=== PATIENT | female | born 1950 | race Caucasian/White ===

== ENCOUNTER 2023-07-11 09:32 | Outpatient (OUT) | payer MEDICARE, OTHER, SELFPAY ==
[2023-07-11 10:13] LABS: Basophils Absolute Auto 0.1 10^3/uL (0.0-0.1); Basophils Percent Auto 1.4 % (0.2-2.0); Eosinophils Absolute Auto 0.2 10^3/uL (0.0-0.7); Eosinophils Percent Auto 4.7 % (0.9-7.0); Hematocrit 41.5 % (36.0-48.0); Hemoglobin 13.7 g/dL (12.0-16.0); Immature Granulocytes Abs Auto 0.01 10^3/uL (0.00-0.03); Immature Granulocytes Pct Auto 0.2 % (0.0-0.5); Lymphocytes Absolute Auto 1.5 10^3/uL (1.2-3.8); Lymphocytes Percent Auto 34.7 % (20.5-60.0); Mean Corpuscular Hemoglobin 31.4 pg (26.7-34.0); Mean Corpuscular Volume 95.2 fL (81.0-99.0); Mean Platelet Volume 11.9 fL (9.5-13.5); Monocytes Absolute Auto 0.4 10^3/uL (0.3-0.8); Monocytes Percent Auto 8.8 % (1.7-12.0); Neutrophils Absolute Auto 2.2 10^3/uL (1.4-6.5); Neutrophils Percent Auto 50.2 % (43.0-75.0); Platelet Count 215 10^3/uL (150-450); Red Blood Count 4.36 10^6/uL (4.20-5.40); Red Cell Distribution Width 13.2 % (11.0-15.0); White Blood Count 4.3 10^3/uL (4.0-11.0)
[2023-07-11 11:18] LABS: Free T4 1.12 ng/dL (0.76-1.46)
[2023-07-11 12:33] LABS: Anion Gap 10.7; BUN Creatinine Ratio 19.3; Carbon Dioxide 27.3 mmol/L (21.0-32.0); Chloride 102 mmol/L (98-107); Estimated GFR (African America 59 (>=60); Estimated GFR (Non-African Ame 49 (>=60); Glucose 169 mg/dL (74-106); Sodium 136 mmol/L (136-145)
[2023-07-11 12:34] LABS: Alanine Aminotransferase 26 U/L (14-59); Albumin Globulin Ratio 1.2; Albumin Level 4.1 g/dL (3.4-5.0); Alkaline Phosphatase 68 U/L (46-116); Aspartate Amino Transferase 19 U/L (15-37); Bilirubin Total 0.8 mg/dL (0.2-1.0); Calcium 8.7 mg/dL (8.5-10.1); Chol HDL Ratio 3.9; Cholesterol 239 mg/dL (<=200); Globulin 3.3 g/dL; HDL Cholesterol 62 mg/dL (40-60); Total Protein 7.4 g/dL (6.4-8.2); Triglycerides 88 mg/dL (<=150); VLDL CHOLESTEROL 17.6 mg/dL
[2023-07-11 12:35] LABS: LDL Cholesterol Calculated 159.4 mg/dL; Thyroid Stimulating Hormone 1.399 uIU/mL (0.358-3.740)
[2023-07-11 12:42] LABS: Estimated Average Glucose 169 mg/dL; Glycohemoglobin A1C 7.5 % (4.5-6.2)
== END 2023-07-11 09:33 | disposition home or self-care (01) ==
LOC: LAB 09:41
PROVIDERS: PCP Family Medicine; Visit Provider Family Medicine
DX: I10 Essential (primary) hypertension (principal); E03.9 Hypothyroidism, unspecified; E11.65 Type 2 diabetes mellitus with hyperglycemia
CPT/HCPCS: 36415; 80053; 80061; 83036; 84439; 84443; 85025

== ENCOUNTER 2024-01-10 09:32 | Outpatient (OUT) | payer MEDICARE, OTHER, SELFPAY ==
[2024-01-10 10:13] LABS: Estimated Average Glucose 163 mg/dL; Glycohemoglobin A1C 7.3 % (4.5-6.2)
[2024-01-10 10:33] LABS: Basophils Absolute Auto 0.1 10^3/uL (0.0-0.1); Basophils Percent Auto 1.4 % (0.2-2.0); Eosinophils Absolute Auto 0.1 10^3/uL (0.0-0.7); Eosinophils Percent Auto 2.5 % (0.9-7.0); Hematocrit 42.7 % (36.0-48.0); Hemoglobin 13.8 g/dL (12.0-16.0); Immature Granulocytes Abs Auto 0.01 10^3/uL (0.00-0.03); Immature Granulocytes Pct Auto 0.2 % (0.0-0.5); Lymphocytes Absolute Auto 1.3 10^3/uL (1.2-3.8); Lymphocytes Percent Auto 30.6 % (20.5-60.0); Mean Corpuscular HGB Conc 32.3 g/dL (29.9-35.2); Mean Corpuscular Hemoglobin 30.8 pg (26.7-34.0); Mean Corpuscular Volume 95.3 fL (81.0-99.0); Monocytes Absolute Auto 0.4 10^3/uL (0.3-0.8); Monocytes Percent Auto 8.9 % (1.7-12.0); Neutrophils Absolute Auto 2.5 10^3/uL (1.4-6.5); Neutrophils Percent Auto 56.4 % (43.0-75.0); Platelet Count 208 10^3/uL (150-450); Red Blood Count 4.48 10^6/uL (4.20-5.40); White Blood Count 4.4 10^3/uL (4.0-11.0)
[2024-01-10 10:37] LABS: Free T4 1.15 ng/dL (0.76-1.46)
[2024-01-10 11:04] LABS: Anion Gap 15.2; BUN Creatinine Ratio 17.5; Calcium 9.1 mg/dL (8.5-10.1); Carbon Dioxide 27.9 mmol/L (21.0-32.0); Chloride 101 mmol/L (98-107); Estimated GFR (African America 56 (>=60); Estimated GFR (Non-African Ame 47 (>=60); Glucose 173 mg/dL (74-106); Potassium 4.1 mmol/L (3.5-5.1); Sodium 140 mmol/L (136-145); Thyroid Stimulating Hormone 1.231 uIU/mL (0.358-3.740)
== END 2024-01-10 09:33 | disposition home or self-care (01) ==
LOC: LAB 09:36
PROVIDERS: PCP Family Medicine; Visit Provider Family Medicine
DX: E03.9 Hypothyroidism, unspecified (principal); I10 Essential (primary) hypertension; E11.65 Type 2 diabetes mellitus with hyperglycemia
CPT/HCPCS: 36415; 80048; 83036; 84439; 84443; 85025

== ENCOUNTER 2024-05-01 00:47 | Emergency (ER) | payer MEDICARE, OTHER, SELFPAY ==
[2024-05-01] VITALS (38 sets, daily range): BP systolic 141–240; BP diastolic 58–118; PULSE 78–104; TEMP 36.7; O2SAT 97–100
--- NOTE | 2024-05-01 01:04 | ECG_ITS ---
[facility] Test Date: 2024-05-01 Pat Name: JORDANA JIMÉNEZ Department: Room: - Gender: Female Psychiatric Orderly: : 1950 Requested By: [id number] Order Number: [id number] Reading MD: ABRAHAM ESTES Measurements Intervals [place] Rate: 86 P: 68 WA: 228 QRS: 20 QRSD: 80 T: 57 QT: 360 QTc: 403 Interpretive Statements 1100 Sinus rhythm 1474 with frequent supraventricular premature complexes 2231 First degree AV block 9150 abnormal ECG Compared to ECG 04/07/2022 10:23:59 No significant changes Electronically Signed On 05-01-2024 6:42:16 EDT by ABRAHAM ESTES
--- NOTE | 2024-05-01 01:08 | XR_ITS ---
The [address] [address] Patient Name: JORDANA JIMÉNEZ MRN: [facility]:[id number] date: 1950 Sex: F Assigned Patient Location: ER Current Patient Location: ER Accession/Order Number: [id number] Exam Date: 05/01/2024 01:20 Report Date: 05/01/2024 02:12 At the request of: VALERIE CAMACHO Procedure: XR chest 1V SINGLE VIEW CHEST: 05/01/2024 1:20 AM EDT CLINICAL HISTORY:tachycardia COMPARISONS: Two-view chest 03/23/2022 TECHNIQUE: Single frontal view of the chest, utilizing portable technique. Portable radiography should be considered a technically compromised study. Strongly consider dedicated PA and lateral chest radiographs, as clinically indicated. FINDINGS: LINES AND TUBES: Cardiac monitoring leads and wires overlie the patient. CARDIAC SILHOUETTE: Within normal limits. MEDIASTINAL AND HILAR CONTOUR: Within normal limits. PULMONARY PARENCHYMA AND PLEURA: No consolidation, edema, effusion, or pneumothorax. OSSEOUS STRUCTURES:Nothing significant. OTHER COMMENTS:None. XR/XR chest 1V IMPRESSION: Stable chest, with no acute radiographic findings. This report was generated with voice recognition software. Effort has been made to ensure accuracy of this report, however, occasional wording errors may persist. Please contact our office with any questions. Electronically authenticated by: RUPERTO GARCIA Date: 05/01/2024 02:12
--- NOTE | 2024-05-01 01:10 | ED.GENADUL1 ---
HPI HPI - General Adult General Chief complaint: Arrhythmia/Palpitations Stated complaint: chest pain Time Seen by Provider: 05/01/24 01:02 Source: patient Mode of arrival: walk-in Limitations: no limitations History of Present Illness HPI narrative: past history of diet controlled diabetes, HTN and hypothyroid. States a couple of days ago experienced heart racing in her chest for few minutes. Tonight heart racing for over an hour and her BP is elevated. No chest pain. sl nausea. Nothing specific but states just did not feel right and decided to come in. no light headedness or shortness of breath Related Data Home Medications ?Medication ?Instructions ?Recorded ?Confirmed levothyroxine 75 mcg tablet 75 mcg PO .once daily 05/01/24 05/01/24 losartan 50 mg tablet 50 mg PO .once daily 05/01/24 05/01/24 Allergies Allergy/AdvReac Type Severity Reaction Status Date / Time Penicillins Allergy Intermediate Hives Verified 05/01/24 00:59 Sulfa (Sulfonamide Allergy Intermediate hives Verified 05/01/24 00:59 Antibiotics) Opioid HPI Opioid Management Most Recent Opioid Data: No Data to Display Review of Systems ROS Status of ROS 10 or more systems reviewed and unremarkable except as noted in history and below Exam Constitutional Vital Signs, click to edit/add: Last Vital Signs Temp 98.1 F 05/01/24 00:59 Pulse 78 05/01/24 04:41 Resp 18 05/01/24 04:41 BP 166/66 H 05/01/24 04:41 Pulse Ox 97 05/01/24 04:41 O2 Del Method Room Air 05/01/24 00:59 Common normals: no apparent distress, average body habitus, oriented x3, no limitations, healthy appearing, alert and well nourished Eye Common normals: PERRL and EOMs intact bilaterally Respiratory Common normals: normal respiratory effort, no retractions, no use of accessory muscles and clear to auscultation bilaterally Cardio Common normals: S1 normal heart sound and S2 normal heart sound Rate: tachycardic GI Common normals: Normal to inspection, nondistended, normoactive bowel sounds present, soft to palpation and non-tender Extremity Common normals: normal to inspection and full ROM Neuro Common normals: oriented x3, CN's II-XII intact bilaterally, moves all extremities and no focal motor deficits Psych Appearance: grossly normal Course Vital Signs Vital signs: Vital Signs Temperature 98.1 F 05/01/24 00:59 Pulse Rate 89 05/01/24 00:59 Respiratory Rate 16 05/01/24 00:59 Blood Pressure 202/118 H 05/01/24 00:59 Pulse Oximetry 97 05/01/24 00:59 Oxygen Delivery Method Room Air 05/01/24 00:59 Temperature 98.1 F 05/01/24 00:59 Pulse Rate 78 05/01/24 04:41 Respiratory Rate 18 05/01/24 04:41 Blood Pressure 166/66 H 05/01/24 04:41 Pulse Oximetry 97 05/01/24 04:41 Oxygen Delivery Method Room Air 05/01/24 00:59 Medical Decision Making MDM Narrative Medical decision making narrative: patient presents with complaint of her heart racing at home and HTN. No chest pain or dyspnea. Serial troponin neg and D-dimer neg. BP treated in the department and patient discharged home to follow up with her doctor for recheck Lab Data Labs: Lab Results 05/01/24 05/01/24 Range/Units 01:10 03:10 WBC 6.5 (4.0-11.0) 10^3/uL RBC 4.59 (4.20-5.40) 10^6/uL Hgb 14.3 (12.0-16.0) g/dL Hct 43.8 (36.0-48.0) % MCV 95.4 (81.0-99.0) fL MCH 31.2 (26.7-34.0) pg MCHC 32.6 (29.9-35.2) g/dL RDW 13.5 (11.0-15.0) % Plt Count 205 (150-450) 10^3/uL MPV 11.9 (9.5-13.5) fL Neut % (Auto) 40.6 L (43.0-75.0) % Lymph % (Auto) 45.9 (20.5-60.0) % [place] % (Auto) 9.2 (1.7-12.0) % Eos % (Auto) 3.4 (0.9-7.0) % Baso % (Auto) 0.9 (0.2-2.0) % Neut # (Auto) 2.6 (1.4-6.5) 10^3/uL Lymph # (Auto) 3.0 (1.2-3.8) 10^3/uL [place] # (Auto) 0.6 (0.3-0.8) 10^3/uL Eos # (Auto) 0.2 (0.0-0.7) 10^3/uL Baso # (Auto) 0.1 (0.0-0.1) 10^3/uL Abs Immat Gran (auto) 0.00 (0.00-0.03) 10^3/uL Imm/Tot Granulo (auto) 0.0 (0.0-0.5) % D-Dimer 0.35 (<=0.59) mg/L FEU Sodium 138 (136-145) mmol/L Potassium 3.6 (3.5-5.1) mmol/L Chloride 100 (98-107) mmol/L Carbon Dioxide 26.4 (21.0-32.0) mmol/L Anion Gap 15.2 BUN 19.0 H (7.0-18.0) mg/dL Creatinine 1.12 H (0.55-1.02) mg/dL Est GFR ( Amer) 57 L (>=60) Est GFR (Non-Af Amer) 47 L (>=60) BUN/Creatinine Ratio 17.0 Glucose 155 H (74-106) mg/dL Calcium 9.4 (8.5-10.1) mg/dL Troponin I High Sens 14.4 21.5 (4.0-51.3) pg/mL Discharge Plan Discharge Stand Alone Forms: Portal Instructions Chief Complaint: Arrhythmia/Palpitations Clinical Impression: Sinus tachycardia Patient Disposition: Home, Self-Care Prescriptions / Home Meds: No Action levothyroxine 75 mcg tablet 75 mcg PO .once daily losartan 50 mg tablet 50 mg PO .once daily Print Language: [place] Instructions: Atrial Tachycardia (ED) Additional Instructions: follow up with Dr Freed this week for recheck Referrals: Jess Freed MD [Primary Care Provider] - 1 week
[2024-05-01] MEDS: HYDRALAZINE HCL 20 MG/ML VIAL 5 MG IVP ×2 (01:22→03:29)
[2024-05-01 01:23] LABS: Basophils Absolute Auto 0.1 10^3/uL (0.0-0.1); Basophils Percent Auto 0.9 % (0.2-2.0); Eosinophils Absolute Auto 0.2 10^3/uL (0.0-0.7); Eosinophils Percent Auto 3.4 % (0.9-7.0); Hematocrit 43.8 % (36.0-48.0); Hemoglobin 14.3 g/dL (12.0-16.0); Lymphocytes Percent Auto 45.9 % (20.5-60.0); Mean Corpuscular HGB Conc 32.6 g/dL (29.9-35.2); Mean Corpuscular Hemoglobin 31.2 pg (26.7-34.0); Mean Corpuscular Volume 95.4 fL (81.0-99.0); Mean Platelet Volume 11.9 fL (9.5-13.5); Monocytes Absolute Auto 0.6 10^3/uL (0.3-0.8); Monocytes Percent Auto 9.2 % (1.7-12.0); Neutrophils Absolute Auto 2.6 10^3/uL (1.4-6.5); Neutrophils Percent Auto 40.6 % (43.0-75.0); Platelet Count 205 10^3/uL (150-450); Red Blood Count 4.59 10^6/uL (4.20-5.40); Red Cell Distribution Width 13.5 % (11.0-15.0); White Blood Count 6.5 10^3/uL (4.0-11.0)
[2024-05-01 01:35] LABS: Anion Gap 15.2; Calcium 9.4 mg/dL (8.5-10.1); Carbon Dioxide 26.4 mmol/L (21.0-32.0); Chloride 100 mmol/L (98-107); D Dimer 0.35 mg/L FEU (<=0.59); Estimated GFR (African America 57 (>=60); Estimated GFR (Non-African Ame 47 (>=60); Glucose 155 mg/dL (74-106); Potassium 3.6 mmol/L (3.5-5.1); Sodium 138 mmol/L (136-145); Troponin I High Sensitivity 14.4 pg/mL (4.0-51.3)
[2024-05-01 03:31] LABS: Troponin I High Sensitivity 21.5 pg/mL (4.0-51.3)
[2024-05-01] MEDS: CLONIDINE HCL 0.1 MG TABLET PO (03:56)
== END 2024-05-01 05:01 | disposition home or self-care (01) ==
PROVIDERS: Emergency Provider Internal Medicine; PCP Family Medicine
DX: R00.0 Tachycardia, unspecified (principal); E03.9 Hypothyroidism, unspecified; E11.9 Type 2 diabetes mellitus without complications; I10 Essential (primary) hypertension
CPT/HCPCS: 36415; 71045; 80048; 84439; 84443; 84484; 85025; 85378; 93005; 96374; 96376; 99285; J0360

== ENCOUNTER 2024-05-01 10:26 | Outpatient (REF) | payer MEDICARE, OTHER, SELFPAY ==
[2024-05-01 10:59] LABS: Thyroid Stimulating Hormone 1.244 uIU/mL (0.358-3.740)
== END 2024-05-01 10:27 | disposition home or self-care (01) ==
LOC: LAB 10:26
PROVIDERS: PCP Family Medicine; Visit Provider Family Medicine
DX: E03.9 Hypothyroidism, unspecified (principal)
CPT/HCPCS: 36415; 84439; 84443

== ENCOUNTER 2024-05-02 08:58 | Outpatient (OUT) | payer MEDICARE, OTHER, SELFPAY | END 2024-05-02 08:59 | disposition home or self-care (01) | LOC: CARD 08:58 | PROVIDERS: PCP Family Medicine; Visit Provider Family Medicine | DX: R00.2 Palpitations (principal) | CPT/HCPCS: 93242 ==

== ENCOUNTER 2024-05-14 12:45 | Outpatient (OUT) | payer MEDICARE, OTHER, SELFPAY ==
--- NOTE | 2024-05-14 13:00 | CA_ITS ---
Patient Name: JORDANA JIMÉNEZ MR#: [id number] : 1950 Exam Date: 05/14/2024 Ordering Doctor: DR Jess Freed M.D. ECHOCARDIOGRAM REPORT PROCEDURE: CA ECHO DOPPLER COMPLETE INDICATIONS: Palpitations, hypertension COMPARISON: None. DESCRIPTION: COMPLETE ECHOCARDIOGRAM Real-time transthoracic echocardiography with 2D, M-mode, spectral and color flow Doppler performed. QUALITY: Technical quality was good. LEFT VENTRICLE: Normal chamber size. Proximal septal hypertrophy (sigmoid septum). Normal systolic function. LV EF: Normal left ventricular ejection fraction, (55-60%). DIASTOLIC: Grade II diastolic dysfunction. ATRIAL SEPTUM: Visually appears intact. LEFT ATRIUM: Mild chamber dilatation. RIGHT ATRIUM: Normal chamber size. RIGHT VENTRICLE: Normal chamber size. Normal right ventricular systolic function. TRICUSPID VALVE: Normal mobility and thickness. No stenosis with mild regurgitation. Doppler studies reveal moderately (45-60) elevated right sided pressures. RVSP 48 mmHg MITRAL VALVE: Mildly thickened with normal mobility. No evidence of mitral valve stenosis. Mild mitral regurgitation. AORTIC VALVE: Normal trileaflet appearance. Thickened aortic valve. Normal leaflet mobility. No evidence of aortic valve stenosis. No aortic regurgitation. AORTIC ROOT: Normal diameter and appearance. Ascending aorta is normal in size. PULMONIC VALVE: Normal thickness and mobility. No stenosis. No regurgitation. PERICARDIUM: No evidence of pericardial effusion. IVC: Collapses with inspirations. IVC is dilated (2.2 cm). PLEURA: CONCLUSION: 1. The left ventricle is normal in size and exhibits normal systolic function. LVEF is 55-60%. 2. Normal right ventricular size and systolic function. 3. Grade II diastolic dysfunction. 4. Mild mitral and tricuspid regurgitation. 5. Moderately elevated right sided pressures. RVSP is 48 mmHg. Adult Echocardiography Procedure Report Left Ventricle LVEDD (3.7 - 5.6 cm): 3.72 cm LVESD (2.2 - 4.0 cm): 2.73 cm LVIVS thickness (0.6 - 1.2 cm): 1.41 cm LVPW thickness (0.5 - 1.0 cm): 1.10 cm e': 0.09 m/s E - e': 11.46 LVOT Max Gradient: 3.42 mm[Hg] LVOT Area (cm2): 0.92 m/s Peak Velocity (LVOT): 0.92 m/s Mean Velocity (LVOT): 0.73 m/s LVOT Diameter 2.02 cm Left Atrium LA Volume Index (2D A2C): 31.59 ml/m2 Left Atrium Systolic Dimension: 4.26 cm Mitral Valve MV E to A Ratio: 1.62 Mitral Valve A-Wave Peak Velocity: 0.62 m/s Mitral Valve E-Wave Peak Velocity: 1.00 m/s Right Ventricle Aorta AO Root Diam: 2.99 cm Ascending Ao Diam: 3.09 cm Aortic Valve AoV Area (Peak Jose Roberto): 2.50 cm2, 2.50 cm2 AoV Area (VTI): 3.12 cm2, 3.12 cm2 Peak Velocity(Antegrade Flow): 1.18 m/s Peak Gradient(Antegrade Flow): 5.59 mm[Hg] Mean Velocity(Antegrade Flow): 0.83 m/s Mean Gradient(Antegrade Flow): 3.01 mm[Hg] Velocity Time Integral: 30.96 cm Tricuspid Valve Peak Velocity (Regurgitant Flow): 3.08 m/s, 3.15 m/s, 2.57 m/s Pulmonic Valve Mean Gradient: 1.33 mm[Hg] Mean Velocity: 0.54 m/s Peak Velocity: 0.78 m/s, 0.92 m/s Peak Gradient: 3.40 mm[Hg], 2.43 mm[Hg] Right Atrium Right Atrium Systolic Pressure: 42.09 ml, 42.09 ml Dictated by: Perfecto Jones M.D. on 05/14/2024 at 16:01 Approved by: Perfecto Jones M.D. on 05/14/2024 at 16:06
== END 2024-05-14 12:46 | disposition home or self-care (01) ==
LOC: CARD 12:47
PROVIDERS: PCP Family Medicine; Visit Provider Family Medicine
DX: R00.2 Palpitations (principal); I08.1 Rheumatic disorders of both mitral and tricuspid valves
CPT/HCPCS: 93306

== ENCOUNTER 2024-10-15 10:32 | Outpatient (OUT) | payer MEDICARE, OTHER, SELFPAY ==
[2024-10-15 11:19] LABS: Estimated Average Glucose 151 mg/dL; Glycohemoglobin A1C 6.9 % (4.5-6.2)
== END 2024-10-15 10:33 | disposition home or self-care (01) ==
LOC: LAB 10:37
PROVIDERS: PCP Family Medicine; Visit Provider Family Medicine
DX: E11.65 Type 2 diabetes mellitus with hyperglycemia (principal)
CPT/HCPCS: 36415; 83036

== ENCOUNTER 2025-02-01 09:09 | Outpatient (OUT) | payer MEDICARE, OTHER, SELFPAY ==
--- NOTE | 2025-02-01 | ECG_ITS ---
The [facility] Test Date: 2025-02-01 Pat Name: JORDANA JIMÉNEZ Department: Room: - Gender: Female Manager Protein: : 1950 Requested By: MITCHELL FLOOD Order Number: [id number] Reading MD: HERMAN LOW M.D. Measurements Intervals [place] Rate: 65 P: 75 NC: 259 QRS: 50 QRSD: 88 T: 42 QT: 405 QTc: 422 Interpretive Statements SINUS RHYTHM WITH FIRST DEGREE AV BLOCK WITH OCCASIONAL ECTOPIC PREMATURE COMPLEXES MODERATE T-WAVE ABNORMALITY, CONSIDER INFERIOR ISCHEMIA [-0.1+ mV T WAVE IN II/aVF] Compared to ECG 05/01/2024 01:04:23 T-wave abnormality now present Possible ischemia now present Electronically Signed On 02-02-2025 10:29:23 EDT by HERMAN LOW M.D.
--- OUTSIDE RECORDS SUMMARY | 2025-02-01 09:28 | XMS_ITS | CCD ---
Author Organization [facility] Care Team Providers Care Early Childhood Education Worker Name Role Phone REMIGIO, DR JESS Campbell Admitting Unavailable FLOOD, DR JESS Campbell Attending Unavailable FLOOD, DR JESS Campbell Consulting Unavailable FLOOD, DR JESS Campbell Primary Care Unavailable FLOOD, DR JESS Campbell Primary Care Unavailable DANIA, DR ANGELICA Nolen Consulting Unavailable FLOOD, DR JESS Campbell Admitting Unavailable FLOOD, DR JESS Campbell Referring Unavailable FLOOD, DR JESS Campbell Attending Unavailable FLOOD, DR JESS Campbell Consulting Unavailable FLOOD, DR JESS Campbell Primary Care Unavailable EBCAIT, DR ERICH Gregory Consulting Unavailable FLOOD, DR JESS Campbell Attending Unavailable FLOOD, DR JESS Campbell Admitting Unavailable FLOOD, DR JESS Campbell Consulting Unavailable FLOOD, DR JESS Campbell Primary Care Unavailable FLOOD, DR JESS Campbell Attending Unavailable FLOOD, DR JESS Campbell Admitting Unavailable FLOOD, DR JESS Campbell Consulting Unavailable FLOOD, DR JESS Campbell Primary Care Unavailable [facility] DR ERICH Gregory Consulting Unavailable FLOOD, DR JESS Campbell Admitting Unavailable FLOOD, DR JESS Campbell Attending Unavailable FLOOD, DR JESS Campbell Consulting Unavailable FLOOD, DR JESS Campbell Consulting Unavailable FLOOD, DR JESS Campbell Admitting Unavailable FLOOD, DR JESS Campbell Attending Unavailable FLOOD, DR JESS Campbell Primary Care [facility] Unavailable FLOOD, DR JESS Campbell Admitting Unavailable FLOOD, DR JESS Campbell Attending Unavailable FLOOD, DR JESS Campbell Consulting Unavailable FLOOD, DR JESS Campbell Primary Care Unavailable Jess Flood Unavailable MD Jess Flood Primary Care Provider MD Aparna Otto Attending Provider [phone] DO Jumana Mendieta Referring Provider Jess Flood Primary Care Unavailable Aparna Otto Attending Unavailable Aparna Otto Admitting Unavailable Jumana Mendieta Referring Unavailable Jess Flood Primary Care Unavailable Aparna Otto Attending Unavailable Aparna Otto Admitting Unavailable CYNDI COUGHLIN Attending Unavailable CYNDI COUGHLIN Referring Unavailable Allergies Allergy Classification Reported Allergen(s) Allergy Type Date of Onset Reaction(s) Facility (1 source) Penicillin Drug Allergy [facility] (1 source) Sulfamethoxazole / Trimethoprim Drug Allergy [facility] (9 sources) atorvastatin Drug Allergy 01-10-20 Unknown[facility] Comment on above: LFT elevated (9 sources) ezetimibe Drug Allergy 01-10-20 Unknown, [facility] Comment on above: muscle aches (3 sources) Substance with penicillin structure and antibacterial mechanism of action (substance) Drug allergy Unknown [email or web address] [employer] Other (3 sources) Substance with sulfonamide structure and antibacterial mechanism of action (substance) Drug allergy Unknown [email or web address] [facility] [employer] Other (8 sources) Penicillins; Translations: [Penicillins] Allergy to substance 12-29-19 23 [facility] (8 sources) Sulfonamides (Antibiotic); Translations: [Sulfa (Sulfonamide Antibiotics)] Allergy to substance 12-29-19 [facility] (1 source) atorvastatin Drug Allergy 07-26-20 [facility] (1 source) ezetimibe Drug Allergy 07-26-20 [facility] Medications Current Medications Medication Drug Class(es) Dates Sig (Normalized) Sig (Original) busPIRone hydrochloride 5 mg oral tablet (1 source) Start: 01-31-2025 take 1 tablet by mouth twice daily as needed for anxiety Buspirone 5 mg tablet Active 5 MG PO Twice daily as needed for anxiety January 31, 2025 12:00am Centrum Silver (3 sources) Start: 08-17-2013 Centrum Silver Centrum Silver , daily # 0.00, 08/17/2013, No Refill. Active daily for 0 *Pick strength-form from [employer] for eRX* Jul, Active Clotrimazole-Betamet hasone 1-0.05% (3 sources) Start: 07-12-2022 Clotrimazole-Beta methasone 1-0.05% clotrimazole-beta methasone 1-0.05%, 1 application 2 times per day # 1, 07/12/2022, Ref. x1. Active topical 2 times per day for 0 *Pick strength-form from [employer] for eRX* Jun, Active Handicap Placard (3 sources) Start: 07-12-2022 Handicap Placard HandiCap Placard , as directed # 2, 07/12/2022, No Refill. Active Does not apply as directed for 0 duration 5 years *Reorder from [employer] for eRx and Interaction Alerts* Jun, Active latanoprost 0.05 mg/ml ophthalmic solution (6 sources) Prostaglandin Analog Start: 01-10-2024 take 1 drop(s) into the eye(s) once daily in the evening Latanoprost 0.005 % drops Active 1 DROPS EYE-BOTH Every evening January 10, 2024 12:00am Start: 01-10-2024 take 1 drop(s) into the eye(s) once daily in the evening Latanoprost Active 1 DROPS EYE-BOTH Every evening January 10, 2024 12:00am levothyroxine sodium 0.075 mg oral tablet (15 sources) l-Thyroxine Start: 01-12-2024 End: 12-24-2024 take 1 tablet by mouth once daily Levothyroxine 75 mcg tablet Active 0 .ROUTE .COMPLEX December 24, 2024 12:19pm TAKE 1 TABLET BY MOUTH EVERY DAY Start: 01-09-2024 End: 01-12-2024 take 1 tablet by mouth once daily Levothyroxine (Synthroid) 75 mcg tablet Discontinued 1 TAB PO Daily January 09, 2024 12:00am January 12, 2024 2:32pm [employer]: TAKE 1 TABLET BY MOUTH EVERY DAY; Note: Source Status: Taking; Provider: Remigio Mercado ( ) take 1 tablet by sienna once daily Levothyroxine Sodium 75 MCG TAKE 1 TABLET BY MOUTH EVERY DAY Active losartan potassium 50 mg oral tablet (11 sources) Angiotensin 2 Receptor [place] Start: 07-26-2024 Losartan 50 mg tablet Active 75 MG PO Daily 135 90 July 26, 2024 12:00am Start: 07-09-2024 End: 07-26-2024 take 1 tablet by mouth once daily Losartan 50 mg tablet Discontinued 0 .ROUTE .COMPLEX 90 July 09, 2024 10:37am July 26, 2024 1:26pm TAKE 1 TABLET BY MOUTH EVERY DAY Start: 01-09-2024 End: 07-09-2024 take 1 tablet by mouth once daily Losartan 50 mg tablet Discontinued 1 TAB PO Daily January 09, 2024 12:00am July 09, 2024 10:37am [employer]: TAKE 1 TABLET BY MOUTH EVERY DAY; Note: Source Status: Start; Refills: 3; Qty: 90 Tablet; Provider: Remigio Mercado ( ) Start: 01-09-2024 take 1 tablet by sienna th once daily Losartan Active 1 TAB PO Daily January 09, 2024 12:00am [employer]: TAKE 1 TABLET BY MOUTH EVERY DAY; Note: Source Status: Start; Refills: 3; Qty: 90 Tablet; Provider: Remigio Mercado ( ) Start: 11-09-2021 take 1 tablet by sienna th once daily Losartan Potassium 50MG Losartan Potassium 50MG, 1 (one) Tablet daily # 90, 11/09/2021, Ref. x3. Active Oral daily *Pick strength-form from [employer] for eRX* Oct, Active metFORMIN hydrochloride 500 mg oral tablet (2 sources) Biguanide Start: 12-24-2024 take 1 tablet by mouth twice daily at mealtime Metformin 500 mg tablet Active 0 .ROUTE .COMPLEX 180 December 24, 2024 12:19pm TAKE 1 TABLET BY MOUTH TWICE A DAY WITH MEALS Start: 07-12-2024 End: 12-24-2024 take 1 tablet by mouth twice daily at mealtime Metformin 500 mg tablet Discontinued 500 MG PO Twice daily with meals 180 July 12, 2024 12:00am December 24, 2024 12:19pm 24 hr metoprolol succinate 50 mg extended release oral tablet (16 sources) beta-Adrenergic [place] Start: 10-11-2024 take 1 tablet by mouth once daily Metoprolol Succinate 50 mg tablet extended release 24 hr Active 50 MG PO Daily 90 October 11, 2024 2:34pm Start: 07-26-2024 End: 07-26-2024 Metoprolol Succinate 50 mg t ablet extended release 24 hr Discontinued 75 MG PO Daily 135 90 July 26, 2024 12:00am July 26, 2024 1:27pm Start: 07-12-2024 End: 10-11-2024 take 1 tablet by mouth once daily Metoprolol Succinate 50 mg tablet extended release 24 hr Discontinued 0 .ROUTE .COMPLEX July 12, 2024 2:11pm October 11, 2024 2:35pm TAKE 1 TABLET BY MOUTH EVERY DAY Start: 06-14-2024 End: 07-12-2024 take 1 tablet by mouth once daily Metoprolol Succinate 50 mg tablet extended release 24 hr Discontinued 50 MG PO Daily June 14, 2024 12:00am July 12, 2024 2:11pm Start: 05-01-2024 End: 06-14-2024 take 1 tablet by mouth once daily Metoprolol Succinate 25 mg tablet extended release 24 hr Discontinued 25 MG PO Daily May 28, 2024 8:23am June 14, 2024 2:53pm Dkqnqdni-Lro-Kl-Lycopen-Lute in (Centrum Silver) 0.4 mg-300 mcg- 250 mcg tablet (6 sources) Start: 01-09-2024 take 1 tablet by mouth once daily Casotshd-Yie-Pb-Lycopen-Lutein (Centrum Silver) 0.4 mg-300 mcg- 250 mcg tablet Active 1 TAB PO Daily January 09, 2024 12:00am mupirocin 0.02 mg/mg topical ointment (1 source) RNA Synth etase Inhib itor Antib acter ial Start: 12-13-2024 Mupirocin 2 % ointment Activ e 1 APPLIC TOPICAL Twice daily December 13, 2024 1:00am OneTouch Ultra 2 (3 sources) Start: 10-06-2021 OneTouch Ultra 2 OneTouch Ul tra 2 , 1 (one) Kit test daily # 1, 10/06/2021, No Refill. Active test daily for 0 or whatever is covered Sep, Active OneTouch Ultra Test (3 sources) Start: 10-08-2022 OneTouch Ultra Test OneTouch Ultra Test , 1 (one) Each daily # 100, 10/08/2022, Ref. x2. Active miscellaneous daily for 90 days *Reorder from [employer] for eRx and Interaction Alerts* Sep, Active Completed/Discontinued Medications Medication Drug Class(es) Dates Sig (Normalized) Sig (Original) ALPRAZolam 0.25 mg oral tablet (5 sources) Benzodiazepine Start: 05-01-2024 End: 06-14-2024 take 1 tablet by mouth twice daily as needed for anxiety Alprazolam 0.25 mg tablet Discontinued 0.25 MG PO Twice daily as needed for anxiety 08 22May 01, 2024 12:00am June 14, 2024 2:13pm azithromycin 250 mg oral tablet (5 sources) Macrolide Antimicrobial Start: 02-22-2024 End: 05-01-2024 Azithromycin 250 mg tablet Discontinued 0 PO .COMPLEX February 22, 2024 12:00am May 01, 2024 8:55am For 250 mg dose pack: take 500 mg today (day 1), then 250 mg for 4 days (days 2-5) PO Start: 02-22-2024 End: 05-01-2024 Azithromycin Discontinued 0 PO .COMPLEX February 22, 2024 12:00am May 01, 2024 8:55am For 250 mg dose pack: take 500 mg today (day 1), then 250 mg for 4 days (days 2-5) PO betamethasone 0.5 mg/ml / clotrimazole 10 mg/ml topical cream (6 sources) Azole Antifungal, Corticosteroid Start: 01-09-2024 End: 01-10-2024 Clotrimazole-Betamethasone 1-0.05 % cream Discontinued 1 APPLIC TOPICAL Twice daily January 09, 2024 12:00am January 10, 2024 8:57am cephalexin 500 mg oral capsule (1 source) Cephalosporin Antibacterial Start: 12-13-2024 End: 01-31-2025 take 1 capsule by mouth three times daily Cephalexin 500 mg capsule Discontinued 500 MG PO Three times daily 13 05December 13, 2024 1:00am January 31, 2025 3:44pm Problems Active Problems Problem Classification Problem Date Documented Date Episodic/Chronic Anxiety disorders (9 sources) Anxiety; Translations: [Anxiety disorder, unspecified] 05-01-2024 Chronic Cardiac dysrhythmias (14 sources) Palpitations; Translations: [Palpitations] Onset: 06-14-2024 05-01-2024 Episodic Deficiency and other anemia (3 sources) Anemia; Translations: [Anemia, unspecified] Episodic Diabetes mellitus with complications (16 sources) Type 2 diabetes mellitus with hyperglycemia; Translations: [Hyperglycemia due to type 2 diabetes mellitus] Onset: 07-13-2022 Chronic Esophageal disorders (3 sources) Gastroesophageal reflux disease; Translations: [Gastro-esophageal reflux disease without esophagitis] Chronic Essential hypertension (19 sources) Essential (primary) hypertension; Translations: [Essential hypertension] Onset: 07-13-2022 Chronic Fluid and electrolyte disorders (8 sources) Hypo-osmolality and hyponatremia; Translations: [Hyponatremia] Onset: 03-30-2022 Episodic Osteoarthritis (3 sources) Osteoarthritis; Translations: [Unspecified osteoarthritis, unspecified site] Chronic Other circulatory disease (3 sources) Carotid bruit; Translations: [Other specified symptoms and signs involving the circulatory and respiratory systems] Episodic Other connective tissue disease (4 sources) Pain in right foot; Translations: [PAIN IN RIGHT FOOT] Onset: 02-16-2023 Episodic Other lower respiratory disease (3 sources) Dyspnea on exertion; Translations: [Other forms of dyspnea] Episodic Other screening for suspected conditions (not mental disorders or infectious disease) (4 sources) Encounter for other screening for malignant neoplasm of breast; Translations: [Encounter for screening mammogram for malignant neoplasm of breast] Onset: 01-07-2025 Episodic Spondylosis; intervertebral disc disorders; other back problems (3 sources) Cervical radiculopathy; Translations: [Radiculopathy, cervical region] Episodic Thyroid disorders (19 sources) Hypothyroidism, unspecified; Translations: [Acquired hypothyroidism] Onset: 07-13-2022 Chronic Unclassified (1 source) COUGH, UNSPECIFIED; Translations: [COUGH, UNSPECIFIED] Onset: 03-30-2022 Past or Other Problems Problem Classification Problem Date Documented Date Episodic/Chronic Abdominal pain (4 sources) Unspecified abdominal pain; Translations: [UNSPECIFIED ABDOMINAL PAIN] Onset: 03-23-2022 Episodic Deficiency and other anemia (1 source) Anemia, unspecified; Translations: [ANEMIA UNSPECIFIED] Onset: 04-08-2022 Episodic Other circulatory disease (1 source) Other specified symptoms and signs involving the circulatory and respiratory systems; Translations: [OTH SPEC SX SIGNS INVLV CIRC RS] Onset: 04-08-2022 Episodic Other connective tissue disease (4 sources) Other symptoms and signs involving the musculoskeletal system; Translations: [OTH SX AND SYMP INVOLV MUSCULOSKELTAL] Onset: 04-16-2022 Episodic Other lower respiratory disease (5 sources) Dyspnea, unspecified; Translations: [DYSPNEA UNSPECIFIED] Onset: 04-07-2022 Episodic Results Test Name Value Interpretation Reference Range Facility 29on 01-25-2025 29 Addended by: BRAULIO XAVIER on: 01/28/2025 02:56 PM Modules accepted: Orders Normal [facility] Follow-Upon 01-25-2025 Follow-Up [id number] Marisel Jiménez [facility] 1950 F Date Provider Department Center 01/25/2025 Kesha-CYNDI COUGHLIN DCC ONC DCC Family History Problem Relation Age of Onset Colon cancer Maternal Grandmother Cervical cancer Paternal Grandmother Family Status - Relation Status Age at Maternal Grandmother Paternal Grandmother Level of Service:[facility] 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 Normal [facility] BI MAMMOGRAM SCREENING TOMOS YNTHESIS BILATERALon 01-07-2025 BI MAMMOGRAM SCREENING TOMOSYNTHESIS BILATERAL This is a summary report. The complete report is available in the patient's medical record. If you cannot access the medical record, please contact the sending organization for a detailed fax or copy. ANN MANJARREZMOHINDER 1950 [id number] EXAM: BI MAMMOGRAM SCREENING TOMOSYNTHESIS BILATERAL, 01/07/2025 8:21 AM CLINICAL INDICATIONS: Screening, COMPARISON: 01/02/2024 and priors TECHNIQUE: Bilateral digital tomosynthesis MLO and CC views of the breasts were obtained, with creation of synthetic 2D views. Computer aided detection was utilized. FINDINGS: The breasts are heterogeneously dense, which may obscure small masses. There are no suspicious masses, calcifications, or areas of architectural distortion. IMPRESSION: No mammographic evidence of malignancy. BI-RADS: BI-RADS 1: Negative RECOMMENDATION: Routine Screening Mammogram in 1 Year RISK ASSESSMENT: TC lifetime risk: % The patient's reported personal and family medical history was used to calculate their Tyrer-Cuzick lifetime risk of malignancy. Scores less than 20% are not considered high risk per ACR guidelines and patient should continue with the above recommendation. Electronically signed: Yoel Jang MD. Normal [facility] NM wagner perf SPECT rest stron 06-27-2024 NM wagner perf SPECT rest str [facility] [place] [address] Nuclear Medicine Report Signed Patient: Ann Jiménez MR#: [id number] 1090 : 1950 Acct:[id number] Age/Sex: 74 / F ADM Date: 06/27/24 Loc: NM Room: Type: [facility] Attending Dr: Aparna Otto MD Copies to: MD Jumana Young DO Ordering Provider: Aparna Otto MD Date of Service: 06/27/24 NM/NM wagner perf SPECT rest str: R06.00 ### Revised medical document Indication:? SOB NM/NM wagner perf SPECT rest str Impression: Low risk myocardial perfusion imaging study: clinical correlation advised Normal left ventricular systolic function with an ejection fraction of >55% For ECG portion of the study please see separate report Imaging: Resting imaging:? Uniform radiotracer distribution through entire left ventricular myocardium Stress imaging:? Uniform radiotracer distribution through entire left ventricular myocardium Gated SPECT imaging:? Normal left ventricular systolic function with a calculated ejection fraction of >55% and RWMA is: normal TID score: 0.97 SDS score: 0 Resting image 6.2 mCi Tc 99 m Cardiolite Stress images 19.4 mCi Tc 99 m Cardiolite Impression dictated by: Jumana Mendieta D.O.06/27/2024 2:54 PM Dictation Location: [place] [address] Transcribed By: REJI 06/27/24 145 Dictated By: Jumana Mendieta DO 06/27/24 144 Signed By: 06/27/24 145 Erika [facility] FPG ECG *CARDIOLOGY ONLY*on 06-14-2024 FPG ECG *CARDIOLOGY ONLY* [facility] [address] [address] Electrocardiograph Report Signed Patient: Ann Jiménez MR#: [id number] 1090 : 1950 Acct:[id number] Age/Sex: 74 / F ADM Date: 06/14/24 Loc: EKGCARDIO Room: Type: [facility] Attending Dr: Aparna Otto MD Ordering Provider: Aparna Otto MD Date of Service: 06/14/24 ECG/FPG ECG *CARDIOLOGY ONLY*: R00.2 - Palpitations Copies to: Test Reason : Blood Pressure : */* mmHG Vent. Rate : 62 BPM Atrial Rate : 62 BPM P-R Int : 234 ms QRS Dur : 66 ms QT Int : 414 ms P-R-T Axes : 84 9 56 degrees QTcB Int : 420 ms Sinus rhythm with 1st degree AV block with premature atrial complexes Otherwise normal ECG Confirmed by Aparna Otto ([id number]) on 06/15/2024 2:57:40 PM Referred By: Electronically Signed By: Aparna Otto Transcribed By: MUS Signed By Aparna Otto MD 4 [id number] Normal [facility] Basophils Auto (Bld) [#/Vol] on 05-01-2024 Basophils (Bld) [#/Vol] 0.1 10 3/uL 0.0-0.1 [facility] Basophils/100 WBC Auto (Bld) on 05-01-2024 Basophils/100 WBC (Bld) 0.9 % 0.2-2.0 [facility] Eosinophils/100 WBC Auto (Bl d)on 05-01-2024 Eosinophils/100 WBC (Bld) 3.4 % 0.9-7.0 [facility] Erythrocyte distribution wid th Auto (RBC) [Ratio]on 05-01-2024 Erythrocyte distribution width (RBC) [Ratio] 13.5 % 11.0-15.0 [facility] Estimated glomerular filtrat ion rate (GFR) non- Americanon 05-01-2024 GFR/1.73 sq M.predicted among non-blacks MDRD (S/P/Bld) [Vol rate/Area] 47 mL/min/{1.73_m2} Low >=60 [facility] Fibrin D-dimer [Presence] in Platelet poor plasma by Latex agglutinationon 05-01-2024 Fibrin D-dimer LA Ql (PPP) 0.35 mg/L FEU <=0.59 [facility] Comment on above: Increases in D-Dimer concentration observed withthromboembolic events can be variable due to localization,size, and age of the thrombus. Therefore, a thromboembolicevent cannot be diagnosed with certainty on the basis of thereference range. D-Dimers may also be elevated for a varietyof disorders including advanced age, , coronarydisease, cancer, liver disease, infection, inflammation,hematoma, DIC, trauma, post-surgery, diabetes, thrombolyticor anticoagulant therapy, stress, and generalizedhospitalization. Hematocrit Auto (Bld) [Volum e fraction]on 05-01-2024 Hematocrit (Bld) [Volume fraction] 43.8 % 36.0-48.0 [facility] Hemoglobin [Mass/volume] in Bloodon 05-01-2024 Hemoglobin (Bld) [Mass/Vol] 14.3 g/dL 12.0-16.0 [facility] Laboratory - Chemistry and C hemistry - challengeon 05-01-2024 Calcium [Mass/Vol] 9.4 mg/dL 8.5-10.1 [facility] Chloride [Moles/Vol] 100 mmol/L 98-107 [facility] CO2 [Moles/Vol] 26.4 mmol/L 21.0-32.0 [facility] Creatinine [Mass/Vol] 1.12 mg/dL High 0.55-1.02 [facility] Free T4 [Mass/Vol] 1.10 ng/dL 0.76-1.46 [facility] GFR/1.73 sq M.predicted MDRD (S/P/Bld) [Vol rate/Area] 57 mL/min/{1.73_m2} Low >=60 [facility] Glucose [Mass/Vol] 155 mg/dL High 74-106 [facility] Potassium [Moles/Vol] 3.6 mmol/L 3.5-5.1 [facility] Sodium [Moles/Vol] 138 mmol/L 136-145 [facility] TSH Qn 1.244 m[IU]/L 0.358-3.740 [facility] Urea nitrogen [Mass/Vol] 19.0 mg/dL High 7.0-18.0 [facility] Urea nitrogen/Creatinine [Mass ratio] 17.0 mg/mg [facility] Laboratory - Hematology and Cell countson 05-01-2024 Immature granulocytes/100 WBC (Bld) 0.0 % 0.0-0.5 [facility] Leukocytes [#/volume] correc ruthie for nucleated erythrocytes in Blood by Automated counon 05-01-2024 WBC corrected for nucl RBC Auto (Bld) [#/Vol] 6.5 10 3/uL 4.0-11.0 [facility] Lymphocytes Auto (Bld) [#/Vo l]on 05-01-2024 Lymphocytes (Bld) [#/Vol] 3.0 10 3/uL 1.2-3.8 [facility] Lymphocytes/100 WBC Auto (Bl d)on 05-01-2024 Lymphocytes/100 WBC (Bld) 45.9 % 20.5-60.0 [facility] MCH Auto (RBC) [Entitic mass ]on 05-01-2024 MCH (RBC) [Entitic mass] 31.2 pg 26.7-34.0 [facility] MCHC Auto (RBC) [Mass/Vol]on 05-01-2024 MCHC (RBC) [Mass/Vol] 32.6 g/dL 29.9-35.2 [facility] MCV Auto (RBC) [Entitic vol] on 05-01-2024 MCV (RBC) [Entitic vol] 95.4 fL 81.0-99.0 [facility] Monocytes Auto (Bld) [#/Vol] on 05-01-2024 Monocytes (Bld) [#/Vol] 0.6 10 3/uL 0.3-0.8 [facility] Monocytes/100 WBC Auto (Bld) on 05-01-2024 Monocytes/100 WBC (Bld) 9.2 % 1.7-12.0 [facility] Neutrophils Auto (Bld) [#/Vo l]on 05-01-2024 Neutrophils (Bld) [#/Vol] 2.6 10 3/uL 1.4-6.5 [facility] Neutrophils/100 WBC Auto (Bl d)on 05-01-2024 Neutrophils/100 WBC (Bld) 40.6 % Low 43.0-75.0 [facility] No Panel Informationon 05-01 Troponin I High Sensitivity 21.5 pg/mL 4.0-51.3 [facility] Comment on above: CUT-OFF POINTS HAVE BEEN ESTABLISHED BASED ON THE FOURTHUNIVERSAL DEFINITION OF MYOCARDIAL INFARCTION. THE UPPERREFERENCE LIMIT (URL) OF TROPONIN, DEFINED THE 99THPERCENTILE OF cTnI DISTRIBUTION IN A REFERENCE POPULATION,HAS BEEN CONFIRMED THE DECISION THRESHOLD FOR MIDIAGNOSIS.99TH PERCENTILE = 51.4 PG/MLNOTE: HIGH-SENSITIVITY TROPONIN ASSAY IS NOT INTENDED TO BEUSED IN ISOLATION BUT SHOULD BE INTERPRETED IN CONJUNCTIONWITH OTHER DIAGNOSTIC AND CLINICAL INFORMATION. Eosinophils # (Auto) 0.2 10 3/uL 0.0-0.7 [facility] Immature Granulocyte # (Auto) 0.00 10 3/uL 0.00-0.03 [facility] Platelet mean volume Auto (B ld) [Entitic vol]on 05-01-2024 Platelet mean volume (Bld) [Entitic vol] 11.9 fL 9.5-13.5 [facility] Platelets Auto (Bld) [#/Vol] on 05-01-2024 Platelets (Bld) [#/Vol] 205 10 3/uL 150-450 [facility] RBC Auto (Bld) [#/Vol]on RBC (Bld) [#/Vol] 4.59 10 6/uL 4.20-5.40 [facility] Serum or plasma anion gap de terminationon 05-01-2024 Anion gap [Moles/Vol] 15.2 mmol/L [facility] CBC AUTO DIFFon 07-12-2022 BASO # 0.1 103/ul Normal 0.0-0.1 [facility] Comment on above: Performed By: #### C BC #### [facility] [address] [place] [address] [address] Hermes Cobb Basophils/100 WBC (Bld) 1.2 % Normal 0.2-2.0 [facility] Comment on above: Performed By: #### C BC #### [facility] Laboratory [address] [place] [address] Dr. Hermes Cobb EO # 0.1 103/ul Normal 0.0-0.7 [facility] Comment on above: Performed By: #### C BC #### [facility] [address] [place] [address] Dr. Hermes Cobb Eosinophils/100 WBC (Bld) 2.8 % Normal 0.9-7.0 [facility] Comment on above: Performed By: #### C BC #### [facility] [address] [place] [address] Dr. Hermes Cobb Erythrocyte distribution width (RBC) [Ratio] 13.5 % Normal 11.0-15.0 [facility] Comment on above: Performed By: #### C BC #### [facility] [address] [place] [address] Dr. Hermes Cobb Hematocrit (Bld) [Volume fraction] 41.1 % Normal 36.0-48.0 [facility] Comment on above: Performed By: #### C BC #### [facility] [address] [place] [address] Dr. Hermes Cobb Hemoglobin (Bld) [Mass/Vol] 13.4 g/dL Normal 12.0-16.0 [facility] Comment on above: Performed By: #### C BC #### [facility] [address] [place] [address] Dr. Hermes Cobb IG # 0.01 10e3/ul Normal 0.00-0.03 [facility] Comment on above: Performed By: #### C BC #### [facility] [address] [place] [address] Dr. Hermes Cobb IG % 0.2 % Normal 0.0-0.5 [facility] Comment on above: Performed By: #### C BC #### [facility] [address] [place] [address] Dr. Hermes Cobb LYMPH # 1.5 103/ul Normal 1.2-3.8 [facility] Comment on above: Performed By: #### C BC #### [facility] [address] [place] [address] Dr. Hermes Cobb Lymphocytes/100 WBC (Bld) 35.5 % Normal 20.5-60.0 [facility] Comment on above: Performed By: #### C BC #### [facility] [address] [place] [address] Dr. Hermes Cobb MANUAL DIFF REQ NO Normal [facility] Comment on above: Performed By: #### C BC #### [facility] [address] [place] [address] Dr. Hermes Cobb MCH (RBC) [Entitic mass] 30.9 pg Normal 26.7-34.0 [facility] Comment on above: Performed By: #### C BC #### [facility] [address] [place] [address] Dr. Hermes Cobb MCHC (RBC) [Mass/Vol] 32.6 g/dL Normal 29.9-35.2 [facility] Comment on above: Performed By: #### C BC #### [facility] [address] [place] [address] Dr. Hermes Cobb MCV (RBC) [Entitic vol] 94.9 fL Normal 81.0-99.0 [facility] Comment on above: Performed By: #### C BC #### [facility] [address] [place] [address] Dr. Hermes Cobb MONO # 0.4 103/ul Normal 0.3-0.8 [facility] Comment on above: Performed By: #### C BC #### [facility] [address] [place] [address] Dr. Hermes Cobb Monocytes/100 WBC (Bld) 8.8 % Normal 1.7-12.0 [facility] Comment on above: Performed By: #### C BC #### [facility] [address] [place] [address] Dr. Hermes Cobb NEUT # 2.2 103/ul Normal 1.4-6.5 [facility] Comment on above: Performed By: #### C BC #### [facility] [address] [address] [address] Hermes Cobb Neutrophils/100 WBC (Bld) 51.5 % Normal 43.0-75.0 [facility] Comment on above: Performed By: #### C BC #### [facility] [address] [place] [address] Dr. Hermes Cobb Platelet mean volume (Bld) [Entitic vol] 10.8 fL Normal 9.5-13.5 [facility] Comment on above: Performed By: #### C BC #### [facility] [address] [address] [address] Hermes Cobb PLT 236 103/ul Normal 150-450 [facility] Comment on above: Performed By: #### C BC #### [facility] [address] [place] [address] Dr. Hermes Cobb RBC 4.33 106/ul Normal 4.20-5.40 [facility] Comment on above: Performed By: #### C BC #### [facility] [address] [place] [address] Dr. Hermes Cobb WBC 4.2 103/ul Normal 4.0-11.0 [facility] Comment on above: Performed By: #### C BC #### [facility] [address] [place] [address] Dr. Hermes Cobb FREE T4on 07-12-2022 Free T4 [Mass/Vol] 1.12 ng/dL Normal 0.76-1.46 [facility] Comment on above: Performed By: #### C BC #### [facility] [address] [place] [address] Dr. Hermes Cobb GLYCOHEMOGLOBIN A1Con 2021 ADA RECOMMENDATION SEE BELOW Normal [facility] Comment on above: Result Comment: ADA RECOMMENDED LIMIT 4.0 - 6.0 ADA THERAPEUTIC TARGET < 7.0 ACTION SUGGESTED > 7.0 Performed By: #### U COMFORT ERWIN #### [facility] [address] [place] [address] Dr. Hermes Cobb Glucose [Mass/Vol] 151 mg/dL Normal [facility] Comment on above: Performed By: #### U ACSPO CHISHOLMRO #### [facility] [address] [address] [address] Hermes Cobb HbA1c (Bld) [Mass fraction] 6.9 % Critically high 4.5-6.2 [facility] Comment on above: Performed By: #### U ACSKARIN CHISHOLMRO #### [facility] [address] [address] [address] Hermes Cobb PROF CHEM 8 (BAS METB)on Anion gap [Moles/Vol] 12.6 mmol/L Normal [facility] Comment on above: Performed By: #### C BC #### [facility] [address] [place] [address] Dr. Hermes Cobb Calcium [Mass/Vol] 9.0 mg/dL Normal 8.5-10.1 [facility] Comment on above: Performed By: #### C BC #### [facility] [address] [place] [address] Dr. Hermes Cobb Chloride [Moles/Vol] 102 mmol/L Normal 98-107 [facility] Comment on above: Performed By: #### C BC #### [facility] [address] [place] [address] Dr. Hermes Cobb CO2 [Moles/Vol] 27.5 mmol/L Normal 21.0-32.0 [facility] Comment on above: Performed By: #### C BC #### [facility] [address] [place] [address] Dr. Hermes Cobb Creatinine [Mass/Vol] 1.06 mg/dL Critically high 0.55-1.02 [facility] Comment on above: Performed By: #### C BC #### [facility] [address] [place] [address] Dr. Hermes Cobb EGFR-AF INDIAN >60 Normal >=60 [facility] Comment on above: Performed By: #### C BC #### [facility] [address] [place] [address] Dr. Hermes Cobb EGFR-NON AF INDIAN 51 mL/min/1.73m2 Critically low >=60 [facility] Comment on above: Performed By: #### C BC #### [facility] [address] [address] [address] Hermes Cobb Glucose [Mass/Vol] 169 mg/dL Critically high 74-106 T [facility] Comment on above: Performed By: #### C BC #### [facility] [address] [id number] Hermes Cobb Potassium [Moles/Vol] 4.1 mmol/L Normal 3.5-5.1 [facility] Comment on above: Performed By: #### C BC #### [facility] [address] [address] [address] Hermes Cobb Sodium [Moles/Vol] 138 mmol/L Normal 136-145 [facility] Comment on above: Performed By: #### C BC #### [facility] [address] [address] [address] Hermes Cobb Urea nitrogen [Mass/Vol] 14.0 mg/dL Normal 7.0-18.0 [facility] Comment on above: Performed By: #### C BC #### [facility] [address] [address] [address] Hermes Cobb Urea nitrogen/Creatinine [Mass ratio] 13.2 mg/mg Normal [facility] Comment on above: Performed By: #### C BC #### [facility] [address] [id number] Hermes Cobb TSHon 07-12-2022 TSH 1.229 uIU/mL Normal 0.358-3.740 [facility] Comment on above: Performed By: #### U ACSIND, UMICRO #### [facility] [id number] Hermes Cobb MRI BRAIN WO CONon 2 MRI BRAIN WO CON EXAMINATION: MRI BRA IN WO CON, 04/16/2022 8:29 AM EDT HISTORY: Musculoskeletal symptom ; syncope followed by right leg weakness COMPARISON: None. TECHNIQUE: MRI of the brain was performed without IV contrast. FINDINGS: CEREBRUM: No edema, hemorrhage, mass, acute infarction, or inappropriate atrophy. CEREBELLUM: No edema, hemorrhage, mass, acute infarction, or inappropriate atrophy. BRAINSTEM: No edema, hemorrhage, mass, acute infarction, or inappropriate atrophy. CSF SPACES: Ventricles, cisterns, and sulci are appropriate for age. No hydrocephalus, subarachnoid hemorrhage, or mass. SKULL: No mass or other significant visible lesion. SINUSES: Limited views demonstrate no significant mucosal thickening or fluid. ORBITS: Limited views are unremarkable. OTHER: Negative. IMPRESSION: 1. No evidence of acute or remote ischemic infarction. 2. Age consistent minimal atrophy and chronic small vessel ischemic changes. Electronically authenticated by: ERICH RUGGIERO Date: 2022-04-16 12:10 Normal [facility] US CAROTID ART BILon 022 US CAROTID ART ALICJA EXAMINATION: US COLBERT TID ART ALICJA HISTORY: Carotid bruit COMPARISON: No relevant comparison available. TECHNIQUE: Duplex Doppler ultrasound analysis of carotid and vertebral arteries. . Bilateral carotid arterial duplex examination was performed using B-mode, color flow and spectral analysis. Carotid stenosis is reported according to validated velocity parameters, similar to NASCET criteria. FINDINGS: RIGHT CAROTID ARTERY Mild atherosclerotic plaque Subclavian: PSV: 106.5 cm/s cm/s EDV: 6.6 cm/s cm/s CCA: Prox: PSV: 55.5 cm/s cm/s EDV: 11.0 cm/s cm/s Mid: PSV: 48.5 cm/s cm/s EDV: 12.7 cm/s cm/s Distal: PSV: 54.6 cm/s cm/s EDV: 11.9 cm/s cm/s BULB: PSV: 48.5 cm/s cm/s EDV: 12.7 cm/s cm/s ICA: Prox: PSV: 58.1 cm/s cm/s EDV: 14.7 cm/s cm/s Mid: PSV: 95.2 cm/s cm/s EDV: 22.6 cm/s cm/s Distal: PSV: 96.5 cm/s cm/s EDV: 26.7 cm/s cm/s ECA: PSV: 73.2 cm/s cm/s EDV: 6.0 cm/s cm/s VERTEBRAL: PSV: 47.9 cm/s cm/s EDV: 10.5 cm/s cm/s ICA/CCA ratio: PSV: 1.8 EDV: 2.2 LEFT CAROTID ARTERY Mild atherosclerotic plaque. Elevated ICA/CCA ratio with no focal stenosis observed Subclavian: PSV: 99.5 cm/s cm/s EDV: 7.1 cm/s CCA: Prox: PSV: 67.7 cm/s cm/s EDV: 16.0 cm/s Mid: PSV: 66.6 cm/s cm/s EDV: 14.9 cm/s Distal: PSV: 53.7 cm/s cm/s EDV: 11.0 cm/s BULB: PSV: 63.3 cm/s cm/s EDV: 7.5 cm/s ICA: Prox: PSV: 50.2 cm/s cm/s EDV: 16.8 cm/s Mid: PSV: 78.2 cm/s cm/s EDV: 25.8 cm/s Distal: PSV: 127.0 cm/s cm/s EDV: 31.7 cm/s ECA: PSV: 59.8 cm/s cm/s EDV: 7.5 cm/s VERTEBRAL: PSV: 55.5 cm/s cm/s EDV: 11.9 cm/s ICA/CCA ratio: PSV: 2.4 EDV: 2.9 IMPRESSION: 0-49% flow stenosis bilateral internal carotid arteries Spectral Doppler US Thresholds (Reference: Lorenzo EG, et al. Radiology 2000; 214:[id number]) Stenosis (%) PSV (cm/sec) VICA/VCCA 0-49 <150 <2.5 50-69 150-225 2.5-4.0 >70 >225 >4.0 Electronically authenticated by: ANGELICA JO Date: 2022-04-08 11:43 Normal [facility] CBC AUTO DIFFon 04-07-2022 BASO # 0.0 103/ul Normal 0.0-0.1 [facility] Comment on above: Performed By: #### U COMFORT ERWIN #### [facility] [address] [place] [address] Dr. Hermes Cobb Basophils/100 WBC (Bld) 0.9 % Normal 0.2-2.0 [facility] Comment on above: Performed By: #### U PO ERWINICRO #### [facility] [address] [place] [address] Dr. Hermes Cobb EO # 0.1 103/ul Normal 0.0-0.7 [facility] Comment on above: Performed By: #### PO ALONSOICRO #### [facility] [address] [place] [address] Dr. Hermes Cobb Eosinophils/100 WBC (Bld) 1.1 % Normal 0.9-7.0 [facility] Comment on above: Performed By: #### PO ALONSOICRO #### [facility] [address] [place] [address] Dr. Hermes Cobb Erythrocyte distribution width (RBC) [Ratio] 13.2 % Normal 11.0-15.0 [facility] Comment on above: Performed By: #### AKRIN ALONSORO #### [facility] [address] [place] [address] Dr. Hermes Cobb Hematocrit (Bld) [Volume fraction] 41.6 % Normal 36.0-48.0 [facility] Comment on above: Performed By: #### KARIN ALONSORO #### [facility] [address] [place] [address] Dr. Hermes Cobb Hemoglobin (Bld) [Mass/Vol] 13.6 g/dL Normal 12.0-16.0 [facility] Comment on above: Performed By: #### KARIN ALONSORO #### [facility] [address] [place] [address] Dr. Hermes Cobb IG # 0.01 10e3/ul Normal 0.00-0.03 [facility] Comment on above: Performed By: #### KARIN ALONSORO #### [facility] [address] [place] [address] Dr. Hermes Cobb IG % 0.2 % Normal 0.0-0.5 [facility] Comment on above: Performed By: #### KARIN ALONSORO #### [facility] [address] [address] [address] Hermes Cobb LYMPH # 1.0 103/ul Critically low 1.2-3.8 [facility] Comment on above: Performed By: #### U ACSKATHRINE ICRO #### [facility] [address] [place] [address] Dr. Hermes Cobb Lymphocytes/100 WBC (Bld) 20.9 % Normal 20.5-60.0 [facility] Comment on above: Performed By: #### U ACSKATHRINE ICRO #### [facility] [address] [place] [address] Dr. Hermes Cobb MANUAL DIFF REQ NO Normal [facility] Comment on above: Performed By: #### U YAIMA ICRO #### [facility] [address] [place] [address] Dr. Hermes Cobb MCH (RBC) [Entitic mass] 31.2 pg Normal 26.7-34.0 [facility] Comment on above: Performed By: #### U YAIMA ICRO #### [facility] [address] [place] [address] Dr. Hermes Cobb MCHC (RBC) [Mass/Vol] 32.7 g/dL Normal 29.9-35.2 [facility] Comment on above: Performed By: #### U YAIMA ICRO #### [facility] [address] [place] [address] Dr. Hermes Cobb MCV (RBC) [Entitic vol] 95.4 fL Normal 81.0-99.0 [facility] Comment on above: Performed By: #### U ACSKATHRINE ICRO #### [facility] [address] [place] [address] Dr. Hermes Cobb MONO # 0.4 103/ul Normal 0.3-0.8 [facility] Comment on above: Performed By: #### U ACSKATHRINE ICRO #### [facility] [address] [place] [address] Dr. Hermes Cobb Monocytes/100 WBC (Bld) 8.9 % Normal 1.7-12.0 [facility] Comment on above: Performed By: #### U YAIMA UMICRO #### [facility] [address] [place] [address] Dr. Hermes Cobb NEUT # 3.1 103/ul Normal 1.4-6.5 [facility] Comment on above: Performed By: #### U YAIMA UMICRO #### [facility] [address] [place] [address] Dr. Hermes Cobb Neutrophils/100 WBC (Bld) 68.0 % Normal 43.0-75.0 [facility] Comment on above: Performed By: #### PO ALONSOICRO #### [facility] [address] [place] [address] Dr. Hermes Cobb Platelet mean volume (Bld) [Entitic vol] 10.3 fL Normal 9.5-13.5 [facility] Comment on above: Performed By: #### PO ALONSOICRO #### [facility] [address] [place] [address] Dr. Hermes Cobb PLT 251 103/ul Normal 150-450 [facility] Comment on above: Performed By: #### PO ALONSOICRO #### [facility] [address] [place] [address] Dr. Hermes Cobb RBC 4.36 106/ul Normal 4.20-5.40 [facility] Comment on above: Performed By: #### PO ALONSOICRO #### [facility] [address] [place] [address] Dr. Hermes Cobb WBC 4.6 103/ul Normal 4.0-11.0 [facility] Comment on above: Performed By: #### PO ALONSOICRO #### [facility] [address] [place] [address] Dr. Hermes Cobb FERRITINon 04-07-2022 Ferritin [Mass/Vol] 168.0 ng/mL Normal 8.0-252.0 [facility] Comment on above: Performed By: #### PO ALONSOICRO #### [facility] [address] [place] [address] Dr. Hermes Cobb PROF CHEM 8 (BAS METB)on Anion gap [Moles/Vol] 12.8 mmol/L Normal [facility] Comment on above: Performed By: #### B MP #### [facility] [address] [address] [address] Hermes Cobb Calcium [Mass/Vol] 9.0 mg/dL Normal 8.5-10.1 [facility] Comment on above: Performed By: #### B MP #### [facility] [address] [address] [address] Hermes Cobb Chloride [Moles/Vol] 101 mmol/L Normal 98-107 [facility] Comment on above: Performed By: #### B MP #### [facility] [address] [place] [address] Dr. Hermes Cobb CO2 [Moles/Vol] 28.2 mmol/L Normal 21.0-32.0 [facility] Comment on above: Performed By: #### B MP #### [facility] [address] [address] [address] Hermes Cobb Creatinine [Mass/Vol] 0.97 mg/dL Normal 0.55-1.02 [facility] Comment on above: Performed By: #### B MP #### [facility] [address] [place] [address] Dr. Hermes Cobb EGFR-AF INDIAN >60 Normal >=60 [facility] Comment on above: Performed By: #### B MP #### [facility] [address] [address] [address] Hermes Cobb EGFR-NON AF INDIAN 56 mL/min/1.73m2 Critically low >=60 [facility] Comment on above: Performed By: #### B MP #### [facility] [address] [address] [address] Hermes Cobb Glucose [Mass/Vol] 188 mg/dL Critically high 74-106 T [facility] Comment on above: Performed By: #### B MP #### [facility] [address] [address] [address] Hermes Cobb Potassium [Moles/Vol] 4.0 mmol/L Normal 3.5-5.1 [facility] Comment on above: Performed By: #### B MP #### [facility] [address] [place] [address] Dr. Hermes Cobb Sodium [Moles/Vol] 138 mmol/L Normal 136-145 [facility] Comment on above: Performed By: #### B MP #### [facility] [address] [address] [address] Hermes Cobb Urea nitrogen [Mass/Vol] 12.0 mg/dL Normal 7.0-18.0 [facility] Comment on above: Performed By: #### B MP #### [facility] [address] [place] [address] Dr. Hermes Cobb Urea nitrogen/Creatinine [Mass ratio] 12.4 mg/mg Normal [facility] Comment on above: Performed By: #### B MP #### [facility] [address] [place] [address] Dr. Hermes Cobb PROF CHEM 8 (BAS METB)on Anion gap [Moles/Vol] 11.8 mmol/L Normal [facility] Comment on above: Performed By: #### C BC #### [facility] [address] [place] [address] Dr. Hermes Cobb Calcium [Mass/Vol] 8.8 mg/dL Normal 8.5-10.1 [facility] Comment on above: Performed By: #### C BC #### [facility] [address] [place] [address] Dr. Hermes Cobb Chloride [Moles/Vol] 96 mmol/L Critically low 98-107 [facility] Comment on above: Performed By: #### C BC #### [facility] [address] [place] [address] Dr. Hermes Cobb CO2 [Moles/Vol] 28.9 mmol/L Normal 21.0-32.0 [facility] Comment on above: Performed By: #### C BC #### [facility] [address] [place] [address] Dr. Hermes Cobb Creatinine [Mass/Vol] 1.08 mg/dL Critically high 0.55-1.02 [facility] Comment on above: Performed By: #### C BC #### [facility] [address] [address] [address] Hermes Cobb EGFR-AF INDIAN 60 mL/min/1.73m2 Normal >=60 [facility] Comment on above: Performed By: #### C BC #### [facility] [address] [address] [address] Hermes Cobb EGFR-NON AF INDIAN 50 mL/min/1.73m2 Critically low >=60 [facility] Comment on above: Performed By: #### C BC #### [facility] [address] [place] [address] Dr. Hermes Cobb Glucose [Mass/Vol] 244 mg/dL Critically high 74-106 T [facility] Comment on above: Performed By: #### C BC #### [facility] [address] [place] [address] Dr. Hermes Cobb Potassium [Moles/Vol] 4.7 mmol/L Normal 3.5-5.1 [facility] Comment on above: Performed By: #### C BC #### [facility] [address] [place] [address] Dr. Hermes Cobb Sodium [Moles/Vol] 132 mmol/L Critically low 136-145 Th [facility] Comment on above: Performed By: #### C BC #### [facility] [address] [place] [address] Dr. Hermes Cobb Urea nitrogen [Mass/Vol] 17.0 mg/dL Normal 7.0-18.0 [facility] Comment on above: Performed By: #### C BC #### [facility] [address] [place] [address] Dr. Hermes Cobb Urea nitrogen/Creatinine [Mass ratio] 15.7 mg/mg Normal [facility] Comment on above: Performed By: #### C BC #### [facility] [address] [place] [address] Dr. Hermes Cobb OSMOLALITYon 06-03-2022 Osmolality [Osmolality] 255 mosm/kg Critically low 280-301 [facility] Comment on above: Performed By: #### O SMO #### [facility] [address] [place] [address] Dr. Hermes Cobb OSMOLALITY URINEon 2 Osmolality, Urine 365 mOsmol/kg Normal [facility] Comment on above: Result Comment: 24 h r : 300 - 900 Random: 50 - 1400 After 12hr fluid restriction: >850 Performed By: #### O SMOU #### [facility] [address] [place] [address] Dr. Hermes Cobb FREE T4on 03-24-2022 Free T4 [Mass/Vol] 1.19 ng/dL Normal 0.76-1.46 [facility] Comment on above: Performed By: #### U ACSIND, UMICRO #### [facility] [address] [place] [address] Dr. Hermes Cobb PROF CHEM 8 (BAS METB)on Anion gap [Moles/Vol] 14.0 mmol/L Normal [facility] Comment on above: Performed By: #### B MP, TSH #### [facility] [address] [place] [address] Dr. Hermes Cobb Calcium [Mass/Vol] 8.5 mg/dL Normal 8.5-10.1 [facility] Comment on above: Performed By: #### B MP, TSH #### [facility] [address] [place] [address] Dr. Hermes Cobb Chloride [Moles/Vol] 88 mmol/L Critically low 98-107 [facility] Comment on above: Performed By: #### B MP, TSH #### [facility] [address] [place] [address] Dr. Hermes Cobb CO2 [Moles/Vol] 26.1 mmol/L Normal 21.0-32.0 [facility] Comment on above: Performed By: #### B MP, TSH #### [facility] [address] [place] [address] Dr. Hermes Cobb Creatinine [Mass/Vol] 1.03 mg/dL Critically high 0.55-1.02 [facility] Comment on above: Performed By: #### B CARMINE, TSH #### [facility] [address] [place] [address] Dr. Hermes Cobb EGFR-AF INDIAN >60 Normal >=60 [facility] Comment on above: Performed By: #### B CARMINE, TSH #### [facility] [address] [address] [address] Hermes Cobb EGFR-NON AF INDIAN 53 mL/min/1.73m2 Critically low >=60 [facility] Comment on above: Performed By: #### B CARMINE, TSH #### [facility] [address] [place] [address] Dr. Hermes Cobb Glucose [Mass/Vol] 139 mg/dL Critically high 74-106 T [facility] Comment on above: Performed By: #### B CARMINE, TSH #### [facility] [address] [place] [address] Dr. Hermes Cobb Potassium [Moles/Vol] 4.1 mmol/L Normal 3.5-5.1 [facility] Comment on above: Performed By: #### B CARMINE, TSH #### [facility] [address] [place] [address] Dr. Hermes Cobb Sodium [Moles/Vol] 122 mmol/L Critically low 136-145 Th [facility] Comment on above: Performed By: #### B CARMINE, TSH #### [facility] [address] [place] [address] Dr. Hermes Cobb Urea nitrogen [Mass/Vol] 14.0 mg/dL Normal 7.0-18.0 [facility] Comment on above: Performed By: #### B CARMINE, TSH #### [facility] [address] [place] [address] Dr. Hermes Cobb Urea nitrogen/Creatinine [Mass ratio] 13.6 mg/mg Normal [facility] Comment on above: Performed By: #### B CARMINE, TSH #### [facility] [address] [place] [address] Dr. Hermes Cobb SODIUM RANDOM URINEon 2021 Sodium (U) [Moles/Vol] 22 mmol/L Critically low 30-90 [facility] Comment on above: Performed By: #### U COMFORT ERWIN #### [facility] [address] [place] [address] Dr. Hermes Cobb TSHon 03-24-2022 TSH 1.991 uIU/mL Normal 0.358-3.[address] [facility] Comment on above: Performed By: #### B MP, TSH #### [facility] [address] [place] [address] Dr. Hermes Cobb TSH RANGE SEE BELOW Normal [facility] Comment on above: Result Comment: <0.3 4 UIU/ml HYPERTHYROID 0.34-5.60 UIU/ml EUTHYROID >5.60 UIU/ml HYPOTHYROID Performed By: #### B MP, TSH #### [facility] [address] [place] [address] Dr. Hermes Cobb CBC AUTO DIFFon 03-23-2022 BASO # 0.0 103/ul Normal 0.0-0.1 [facility] Comment on above: Performed By: #### C BC #### [facility] [address] [place] [address] Dr. Hermes Cobb Basophils/100 WBC (Bld) 0.4 % Normal 0.2-2.0 [facility] Comment on above: Performed By: #### C BC #### [facility] [address] [place] [address] Dr. Hermes Cobb EO # 0.0 103/ul Normal 0.0-0.7 [facility] Comment on above: Performed By: #### C BC #### [facility] [address] [place] [address] Dr. Hermes Cobb Eosinophils/100 WBC (Bld) 0.2 % Critically low 0.9-7.0 [facility] Comment on above: Performed By: #### C BC #### [facility] [address] [place] [address] Dr. Hermes Cobb Erythrocyte distribution width (RBC) [Ratio] 12.0 % Normal 11.0-15.0 [facility] Comment on above: Performed By: #### C BC #### [facility] [address] [place] [address] Dr. Hermes Cobb Hematocrit (Bld) [Volume fraction] 38.0 % Normal 36.0-48.0 [facility] Comment on above: Performed By: #### C BC #### [facility] [address] [place] [address] Dr. Hermes Cobb Hemoglobin (Bld) [Mass/Vol] 13.5 g/dL Normal 12.0-16.0 [facility] Comment on above: Performed By: #### C BC #### [facility] [address] [place] [address] Dr. Hermes Cobb IG # 0.01 10e3/ul Normal 0.00-0.03 [facility] Comment on above: Performed By: #### C BC #### [facility] [address] [place] [address] Dr. Hermes Cobb IG % 0.2 % Normal 0.0-0.5 [facility] Comment on above: Performed By: #### C BC #### [facility] [address] [place] [address] Dr. Hermes Cobb LYMPH # 1.4 103/ul Normal 1.2-3.8 [facility] Comment on above: Performed By: #### C BC #### [facility] [address] [place] [address] Dr. Hermes Cobb Lymphocytes/100 WBC (Bld) 27.9 % Normal 20.5-60.0 [facility] Comment on above: Performed By: #### C BC #### [facility] [address] [place] [address] Dr. Hermes Cobb MANUAL DIFF REQ NO Normal [facility] Comment on above: Performed By: #### C BC #### [facility] [address] [place] [address] Dr. Hermes Cobb MCH (RBC) [Entitic mass] 31.8 pg Normal 26.7-34.0 [facility] Comment on above: Performed By: #### C BC #### [facility] [address] [address] [address] Hermes Cobb MCHC (RBC) [Mass/Vol] 35.5 g/dL Critically high 29.9-35.2 [facility] Comment on above: Performed By: #### C BC #### [facility] [address] [address] [address] Hermes Cobb MCV (RBC) [Entitic vol] 89.6 fL Normal 81.0-99.0 [facility] Comment on above: Performed By: #### C BC #### [facility] [address] [address] [address] Hermes Cobb MONO # 0.5 103/ul Normal 0.3-0.8 [facility] Comment on above: Performed By: #### C BC #### [facility] [address] [place] [address] Dr. Hermes Cobb Monocytes/100 WBC (Bld) 10.1 % Normal 1.7-12.0 [facility] Comment on above: Performed By: #### C BC #### [facility] [address] [place] [address] Dr. Hermes Cobb NEUT # 3.0 103/ul Normal 1.4-6.5 [facility] Comment on above: Performed By: #### C BC #### [facility] [address] [place] [address] Dr. Hermes Cobb Neutrophils/100 WBC (Bld) 61.2 % Normal 43.0-75.0 [facility] Comment on above: Performed By: #### C BC #### [facility] [address] [address] [address] Hermes Cobb Platelet mean volume (Bld) [Entitic vol] 10.6 fL Normal 9.5-13.5 [facility] Comment on above: Performed By: #### C BC #### [facility] [address] [place] [address] Dr. Hermes Cobb PLT 256 103/ul Normal 150-450 [facility] Comment on above: Performed By: #### C BC #### [facility] [address] [place] [address] Dr. Hermes Cobb RBC 4.24 106/ul Normal 4.20-5.40 [facility] Comment on above: Performed By: #### C BC #### [facility] [address] [place] [address] Dr. Hermes Cobb WBC 4.9 103/ul Normal 4.0-11.0 [facility] Comment on above: Performed By: #### C BC #### [facility] [address] [place] [address] Dr. Hermes Cobb PROF 14(COMP METB)on 022 Albumin [Mass/Vol] 4.5 g/dL Normal 3.4-5.0 [facility] Comment on above: Performed By: #### C MP #### [facility] [address] [place] [address] Dr. Hermes Cobb Albumin/Globulin [Mass ratio] 1.3 {ratio} Normal [facility] Comment on above: Performed By: #### C MP #### [facility] [address] [place] [address] Dr. Hermes Cobb ALP [Catalytic activity/Vol] 72 U/L Normal 46-116 [facility] Comment on above: Performed By: #### C MP #### [facility] [address] [place] [address] Dr. Hermes Cobb ALT [Catalytic activity/Vol] 35 U/L Normal 14-59 [facility] Comment on above: Performed By: #### C MP #### [facility] [address] [place] [address] Dr. Hermes Cobb Anion gap [Moles/Vol] 15.0 mmol/L Normal [facility] Comment on above: Performed By: #### C MP #### [facility] [address] [place] [address] Dr. Hermes Cobb AST [Catalytic activity/Vol] 29 U/L Normal 15-37 [facility] Comment on above: Performed By: #### C MP #### [facility] [address] [address] [address] Hermes Cobb Bilirubin [Mass/Vol] 1.0 mg/dL Normal 0.2-1.0 [facility] Comment on above: Performed By: #### C MP #### [facility] [address] [place] [address] Dr. Hermes Cobb Calcium [Mass/Vol] 8.6 mg/dL Normal 8.5-10.1 [facility] Comment on above: Performed By: #### C MP #### [facility] [address] [place] [address] Dr. Hermes Cobb Chloride [Moles/Vol] 83 mmol/L Critically low 98-107 [facility] Comment on above: Result Comment: test repeated critical value verified Performed By: #### C MP #### [facility] [address] [place] [address] Dr. Hermes Cobb CO2 [Moles/Vol] 24.8 mmol/L Normal 21.0-32.0 [facility] Comment on above: Performed By: #### C MP #### [facility] [address] [place] [address] Dr. Hermes Cobb Creatinine [Mass/Vol] 0.83 mg/dL Normal 0.55-1.02 [facility] Comment on above: Performed By: #### C MP #### [facility] [address] [place] [address] Dr. Hermes Cobb EGFR-AF INDIAN >60 Normal >=60 [facility] Comment on above: Performed By: #### C MP #### [facility] [address] [place] [address] Dr. Hermes Cobb EGFR-NON AF INDIAN >60 Normal >=60 [facility] Comment on above: Performed By: #### C MP #### [facility] [address] [place] [address] Dr. Hermes Cobb Globulin (S) [Mass/Vol] 3.4 g/dL Normal [facility] Comment on above: Performed By: #### C MP #### [facility] [address] [place] [address] Dr. Hermes Cobb Glucose [Mass/Vol] 129 mg/dL Critically high 74-106 T [facility] Comment on above: Performed By: #### C MP #### [facility] [address] [place] [address] Dr. Hermes Cobb Potassium [Moles/Vol] 3.8 mmol/L Normal 3.5-5.1 [facility] Comment on above: Performed By: #### C MP #### [facility] [address] [place] [address] Dr. Hermes Cobb Protein [Mass/Vol] 7.9 g/dL Normal 6.4-8.2 [facility] Comment on above: Performed By: #### C MP #### [facility] [address] [place] [address] Dr. Hermes Cobb Sodium [Moles/Vol] 119 mmol/L Critically low 136-145 Th [facility] Comment on above: Result Comment: test repeated critical value verified Performed By: #### C MP #### [facility] [address] [place] [address] Dr. Hermse Cobb Urea nitrogen [Mass/Vol] 12.0 mg/dL Normal 7.0-18.0 [facility] Comment on above: Performed By: #### C MP #### [facility] [address] [place] [address] Dr. Hermes Cobb Urea nitrogen/Creatinine [Mass ratio] 14.5 mg/mg Normal [facility] Comment on above: Performed By: #### C MP #### [facility] [address] [place] [address] Dr. Hermes Cobb UA (CLEAN/CATCH) PALAEONTOLOGIST/MICRO I F IND.on 03-23-2022 Bilirubin Ql (U) Negative Normal NEGATIVE [facility] Comment on above: Performed By: #### U COMFORT ERWIN #### [facility] [address] [place] [address] Dr. Hermes Cobb Clarity (U) SL CLOUDY Abnormal CLEAR [facility] Comment on above: Performed By: #### U KARIN ERWINRO #### [facility] [address] [address] [address] Hermes Cobb Color (U) YELLOW Normal YELLOW [facility] Comment on above: Performed By: #### U ACSIND, UMICRO #### [facility] [address] [address] [address] Hermes Cobb Glucose Ql (U) Negative Normal NEGATIVE [facility] Comment on above: Performed By: #### U ACSIND, UMICRO #### [facility] [address] [address] [address] Hermes Cobb Hemoglobin Ql (U) SMALL Abnormal NEGATIVE [facility] Comment on above: Performed By: #### U ACSIND, UMICRO #### [facility] [address] [address] [address] Hermes Cobb Ketones Ql (U) 40 mg/dl Abnormal NEGATIVE [facility] Comment on above: Performed By: #### U ACSIND, UMICRO #### [facility] [address] [address] [address] Hermes Cobb LEUKOCYTES Negative Normal NEGATIVE [facility] Comment on above: Performed By: #### U ACSIND, UMICRO #### [facility] [address] [address] [address] Hermes Cobb Nitrite Ql (U) Negative Normal NEGATIVE [facility] Comment on above: Performed By: #### U ACSIND, UMICRO #### [facility] [address] [address] [address] Hermes Cobb pH (U) 6.0 [pH] Normal 5-9 [facility] Comment on above: Performed By: #### U ACSIND, UMICRO #### [facility] [address] [address] [address] Hermes Cobb SPEC GRAVITY 1.015 Normal 1.005-<=1.025 [facility] Comment on above: Performed By: #### U ACSIND, UMICRO #### [facility] [address] [address] [address] Hermes Cobb UA PROTEIN Negative Normal NEGATIVE/ TRACE [facility] Comment on above: Performed By: #### U ACSIND, UMICRO #### [facility] [address] [address] [address] Hermes Cobb UR MICRO IND MICROSCOPIC ALREADY ORDERED Normal [facility] Comment on above: Performed By: #### U ACSIND, UMICRO #### [facility] [address] [address] [address] Hermes Cobb Urobilinogen Qn (U) 2.0 {Josiane'U}/dL Abnormal 0.2 - 1. 0 [facility] Comment on above: Performed By: #### U ACSIND, UMICRO #### [facility] [address] [address] [address] Hermes Cobb URINE MICROSCOPIC ONLYon BACTERIA TRACE Abnormal NONE SEEN [facility] Comment on above: Performed By: #### U ACSIND, UMICRO #### [facility] [address] [place] [address] Dr. Hermes Cobb Bacteria identified Cx Nom (U) NOT INDICATED Normal [facility] Comment on above: Performed By: #### U ACSIND, UMICRO #### [facility] [address] [place] [address] Dr. Hermes Cobb CAST NONE SEEN Normal NONE SEEN [facility] Comment on above: Performed By: #### U ACSIND, UMICRO #### [facility] [address] [place] [address] Dr. Hermes Cobb Crystals LM Nom (Urine sed) NONE SEEN Normal NONE SEEN [facility] Comment on above: Performed By: #### U ACSIND, UMICRO #### [facility] [address] [place] [address] Dr. Hermes Cobb Epithelial cells LM Ql (Urine sed) FEW Abnormal NONE SEEN /RARE [facility] Comment on above: Performed By: #### U ACSIND, UMICRO #### [facility] [address] [place] [address] Dr. Hermes Cobb MUCOUS TRACE Abnormal NONE SEEN [facility] Comment on above: Performed By: #### U ACSIND, UMICRO #### [facility] [address] [place] [address] Dr. Hermes Cobb RBC 0-2 Normal 0-2 [facility] Comment on above: Performed By: #### U COMFORT ERWIN #### [facility] [address] [place] [address] Dr. Hermes Cobb WBC NONE SEEN Normal NONE SEEN [facility] Comment on above: Performed By: #### U COMFORT ERWIN #### [facility] [address] [place] [address] Dr. Hermes Cobb XR CHEST 2 Von 03-23-2022 XR CHEST 2 V EXAMINATION: XR CHES T 2 V HISTORY: Cough COMPARISON: None. TECHNIQUE: PA and lateral chest x-rays FINDINGS: The lung parenchyma is free of consolidation or infiltrate. No pneumothorax or pleural effusion. The cardiac, mediastinal and hilar contours are normal. The visualized osseous structures exhibit no gross abnormality. IMPRESSION: Normal chest x-rays Electronically authenticated by: ANGELICA JOSEPH Date: 2022-03-23 18:06 Normal [facility] DIGITAL MAMMOGRAM SCREENING BILATERALon 12-28-2021 DIGITAL MAMMOGRAM SCREENING BILATERAL [facility] [address] [place] [id number] ===== Patient Name: ANN JIMÉNEZ : 1950 Sex: F Age: Race: White Pt. Location: 28 Patient Status: D Ordered Date: 12/28/2021 5:00:00 AM Completed Date: 12/28/2021 10:09 AM Requesting Provider: BEULAH MCKNIGHT Attending Provider: Report Copy To: Signs & Symptoms: Z12.31 [facility]tr screen mammogram for malignant neoplasm of breast I10 History: [place] Comments: , Appointment Date: 12/28/2021 , Additional imaging, if necessary?: Y , Appointment Date: 12/28/2021 , Additional imaging, if necessary?: Y , , , Ordering Provider - BEULAH MCKNIGHT MD , Exam: DIGITAL MAMMOGRAM SCREENING BILATERAL ===== DIGITAL MAMMOGRAM SCREENING BILATERAL 12/28/2021 10:09 AM CLINICAL INDICATIONS: Z12.31 Encntr screen mammogram for malignant neoplasm of breast I10 TECHNOLOGIST COMMENTS: Yearly screening, no breast complaints. QUESTION FOR THE RADIOLOGIST: , Appointment Date: 12/28/2021 , Additional imaging, if necessary?: Y , Appointment Date: 12/28/2021 , Additional imaging, if necessary?: Y , , , Ordering Provider - BEULAH MCKNIGHT MD , PROTOCOL: 2-D and Tomosynthesis mammogram images are obtained for each breast as well as synthetic mammogram images for each beast in both projections. CAD STATEMENT: Two standard digital views of both breasts were performed and reviewed with [employer]. RISK FACTORS: Personal: Post-menopausal patient ; Family: ,) PRIOR PROCEDURE: Excisional biopsy, Right Breast, 10/24/1977, Benign COMPARISON: Comparison is made to images from 12/22/2020 (bilateral) and images from 12/17/2019 (bilateral) and images from 01/23/2019 (bilateral) and images from 12/14/2018 (right) FINDINGS: The breast parenchyma is heterogeneously dense which may obscure small masses, but is unchanged in pattern and distribution. No suspicious masses, microcalcifications, or areas of architectural distortion are identified. Asymmetric glandular tissue in the lower central aspect of the left breast similar to prior studies. Few benign calcifications in the posterior depth of the right breast inner aspect which could be dermal in nature and appear unchanged since 2017 ASSESSMENT: BI-RADS-2 Benign RECOMMENDATION: Continued bilateral annual mammogram evaluation. Electronically signed: Arturo Regan. Transcribed by: [email or web address], User Resident: Electronically Signed by: LESVIANGUYEN HOMER @ 01/02/2022 06:16 PM Normal [facility] Comment on above: Order Comment: , Zeus ointment Date: 12/28/2021 , Additional imaging, if necessary?: Y , Appointment Date: 12/28/2021 , Additional imaging, if necessary?: Y , , , Ordering Provider - BEULAH MCKNIGHT MD , Coding Summary.on 01-01-2021 Coding Summary. CODING DATE: 021 [facility] STATUS: PAYOR: Medicare ADMIT DX: REASON FOR VISIT DX: Z23 Encounter for immunization FINAL DX: PRINCIPAL: Z23 Encounter for immunization SECONDARY: PYMT PROC APC STAT DESCRIPTION DOCTOR NAME DATE NOTE: The code number assigned matches the documented diagnosis and / or procedure in the patient's chart. However, the narrative phrase printed from the coding software may appear abbreviated, or result in slightly different terminology. Coded By: Twyla Delgado Date Saved: 01/01/2021 11:26 am Normal [facility] Consent for COVID Vaccineon 12-31-2020 SARS-CoV-2 (COVID-19) RNA ROEL+probe Ql (Unsp spec) [id number]#1.00C D:127 Normal [facility] Consent for Treatmenton 12-22 Consent for Treatment [id number]#1.00C D:127 Normal [facility] Vital Signs Date Time Vital Sign Value Performing Clinician Facility 01-31-2025 15:37-0400 Body height 167.64 cm [facility] 01-31-2025 15:37-0400 Body mass index (BMI) [Ratio] 28.5 kg/m2 [facility] 01-31-2025 15:37-0400 Body weight 80.28 kg [facility] 01-31-2025 15:37-0400 Diastolic blood pressure 78 mm[Hg] [facility] 01-31-2025 15:37-0400 Heart rate 59 /min [facility] 01-31-2025 15:37-0400 Systolic blood pressure 189 mm[Hg] [facility] 06-27-2024 10:06-0400 Diastolic blood pressure 92 mm[Hg] MD Jess Flood Work Phone: [facility] 06-27-2024 10:06-0400 Heart rate 48 /min MD Jess Flood Work Phone: [facility] 06-27-2024 10:06-0400 Systolic blood pressure 202 mm[Hg] MD Jess Flood Work Phone: [facility] 06-14-2024 14:19-0400 Body height 167.64 cm MD Jess Flood Work Phone: [facility] 06-14-2024 14:19-0400 Body mass index (BMI) [Ratio] 28.5 kg/m2 MD Jess Flood Work Phone: [facility] 06-14-2024 14:19-0400 Body weight 80.28 kg MD Jess Flood Work Phone: [facility] 06-14-2024 14:19-0400 Diastolic blood pressure 80 mm[Hg] MD Jess Flood Work Phone: [facility] 06-14-2024 14:19-0400 Heart rate 62 /min MD Jess Flood Work Phone: [facility] 06-14-2024 14:19-0400 Respiratory rate 18 /min MD Jess Flood Work Phone: [facility] 06-14-2024 14:19-0400 SaO2% (BldA) [Mass fraction] 99 % MD Jess Flood Work Phone: [facility] 06-14-2024 14:19-0400 Systolic blood pressure 162 mm[Hg] MD Jess Flood Work Phone: [facility] 05-01-2024 10:12-0400 Body height 167.64 cm [facility] 05-01-2024 10:12-0400 Body mass index (BMI) [Ratio] 28.5 kg/m2 [facility] 05-01-2024 10:12-0400 Body weight 80.28 kg [facility] 05-01-2024 10:12-0400 Diastolic blood pressure 62 mm[Hg] [facility] 05-01-2024 10:12-0400 Heart rate 68 /min [facility] 05-01-2024 10:12-0400 SaO2% (BldA) [Mass fraction] 97 % [facility] 05-01-2024 10:12-0400 Systolic blood pressure 160 mm[Hg] [facility] 01-10-2024 08:47-0400 Body height 167.64 cm [facility] 01-10-2024 08:47-0400 Body mass index (BMI) [Ratio] 28.8 kg/m2 [facility] 01-10-2024 08:47-0400 Body weight 80.9 kg [facility] [place] 01-10-2024 08:47-0400 Diastolic blood pressure 74 mm[Hg] [facility] 01-10-2024 08:47-0400 Heart rate 73 /min [facility] [place] 01-10-2024 08:47-0400 Systolic blood pressure 145 mm[Hg] [facility] 07-11-2023 08:30-0400 Body height 167.64 cm Jess Flood Other [employer] Other 07-11-2023 08:30-0400 Body mass index (BMI) [Ratio] 28.86 kg/m2 Jess Flood Other [employer] Other 07-11-2023 08:30-0400 Body weight 81.1 kg Jess Flood Other [employer] Other 07-11-2023 08:30-0400 Diastolic blood pressure 69 mm[Hg] Jess Flood Other [employer] Other 07-11-2023 08:30-0400 Systolic blood pressure 153 mm[Hg] Jess Flood Other [employer] Other Encounters Encounter Date Encounter Type Care Provider Facility Start: 01-31-2025 End: 01-31-2025 ambulatory [facility] Work Phone: Start: 01-31-2025 End: 01-31-2025 Patient encounter procedure [facility] Work Phone: Start: 01-25-2025 End: 01-25-2025 ambulatory CYNDI COUGHLIN [facility] Start: 01-07-2025 End: 01-07-2025 ambulatory CYNDI COUGHLIN [facility] Start: 07-12-2024 Patient encounter procedure [facility] Start: 06-27-2024 End: 06-27-2024 Patient encounter procedure MD Jess Flood Work Phone: [facility] Work Phone: Start: 06-27-2024 End: 06-27-2024 ambulatory MD Jess Flood Work Phone: [facility] Work Phone: Start: 06-14-2024 End: 06-14-2024 ambulatory MD Jess Flood Work Phone: [facility] Work Phone: Start: 06-14-2024 End: 06-14-2024 Patient encounter procedure MD Jess Flood Work Phone: [facility] Work Phone: Start: 05-01-2024 End: 05-01-2024 ambulatory [facility] Work Phone: Start: 05-01-2024 End: 05-01-2024 Patient encounter procedure [facility] Work Phone: Start: 05-01-2024 Non-patient / Non-visit MD Anu Flood Work Phone: [facility] Work Phone: Start: 05-01-2024 Non-patient / Non-visit [facility] Work Phone: Start: 01-10-2024 End: 01-10-2024 ambulatory [facility] Work Phone: Start: 01-10-2024 End: 01-10-2024 Patient encounter procedure [facility] Work Phone: Start: 08-19-2023 End: 08-19-2023 ambulatory Jess Flood Other [employer] Other Start: 08-19-2023 Nursing evaluation o f patient and report Jess Flood [facility] Start: 07-13-2023 End: 07-13-2023 ambulatory Jess Flood Other [employer] Other Start: 07-13-2023 Telephone encounter Jess Flood [facility] Start: 07-11-2023 End: 07-11-2023 ambulatory Jess Flood Other [employer] Other Start: 07-11-2023 Patient encounter procedure Jess Flood [facility] Start: 02-16-2023 End: 02-17-[address] JESS FLOOD Facility:[facility] Start: 07-13-2022 Encounter for genera l adult medical examination without abnormal findings DR JESS FLOOD [facility] Start: 07-12-2022 End: 07-13-[address] JESS FLOOD Facility:[facility] Start: 07-12-2022 End: 07-13-2022 Encounter for general adult medical examination without abnormal findings DR JESS FLOOD Facility:[facility] Start: 04-16-2022 End: 04-17-[address] JESS FLOOD Facility:[facility] Start: 04-07-2022 End: 04-08-[address] JESS FLOOD Facility:[facility] Start: 03-30-2022 End: 03-31-[address] JESS FLOOD Facility:[facility] Start: 03-24-2022 End: 03-25-[address] JESS FLOOD Facility:[facility] Start: 03-23-2022 End: 03-24-[address] JESS FLOOD Facility:[facility] Procedures Date Procedure Procedure Detail Performing Clinician Start: 06-27-2024 Radionuclide myocard ial perfusion stress study MD Jess Flood Work Phone: Plan of Treatment Date Care Activity Detail Author Start: 06-14-2024 [facility] Start: 05-01-2024 Patient referral [facility] Work Phone: EKG 12 channel panel [facility] Holter monitor study [facility] Patient referral [facility] Work Phone: [facility] Immunizations Immunization Date Immunization Notes Care Provider Fa cility 08-23-2024 influenza, high dose seasonal, preservative-free [facility] 08-19-2023 influenza virus vaccine, unspecified formulation [facility] 08-19-2023 influenza, high dose seasonal, preservative-free Jess Flood Other [email or web address] [facility] [employer] Other 09-03-2022 COVID-19 Pfizer (Pediatric) Jess Flood Other [facility] 08-23-2022 influenza virus vaccine, split virus (incl. purified surface antigen) Jess Flood Other [employer] Other 08-23-2022 influenza virus vaccine, unspecified formulation [facility] 08-10-2021 influenza virus vaccine, split virus (incl. purified surface antigen) Jess Flood Other [employer] Other 08-10-2021 influenza virus vaccine, unspecified formulation [facility] 08-18-2020 influenza virus vaccine, split virus (incl. purified surface antigen) Jess Flood Other [facility] [employer] Other 08-18-2020 influenza virus vaccine, unspecified formulation [facility] 08-16-2019 influenza virus vaccine, split virus (incl. purified surface antigen) Jess Flood Other [facility] Other 08-16-2019 influenza virus vaccine, unspecified formulation [facility] 08-15-2018 influenza virus vaccine, split virus (incl. purified surface antigen) Jess Flood Other [facility] [employer] Other 08-15-2018 influenza virus vaccine, unspecified formulation [facility] 09-08-2017 influenza virus vaccine, split virus (incl. purified surface antigen) Jess Flood Other [facility] [employer] Other 09-08-2017 influenza virus vaccine, unspecified formulation [facility] 08-19-2016 pneumococcal conjuga te vaccine, 13 valent Jess Flood Other [facility] 08-16-2016 influenza virus vaccine, split virus (incl. purified surface antigen) Jess Flood Other [facility] [employer] Other 08-16-2016 influenza virus vaccine, unspecified formulation [facility] 08-12-2015 tetanus and diphther ia toxoids, adsorbed, preservative free, for adult use (5 Lf of tetanus toxoid and 2 Lf of diphtheria toxoid) Jess Flood Other [facility] 08-12-2015 tetanus toxoid, redu promise diphtheria toxoid, and acellular pertussis vaccine, adsorbed Jess Flood Other [facility] [employer] Other 09-30-2014 pneumococcal polysaccharide vaccine, 23 valent Jess Flood Other [facility] 08-16-2013 tetanus and diphther ia toxoids, adsorbed, preservative free, for adult use (5 Lf of tetanus toxoid and 2 Lf of diphtheria toxoid) Jess Flood Other [facility] Payers Date Payer Category Payer Self-pay 1960 Medicare [id number] 1960 Private Health Insurance [id number] 1950 Unknown [id number] 1950 Unknown [id number] 1950 Unknown [id number] 1949 Unknown [id number] 593 1949 Unknown [id number] 593 1949 Unknown [id number] 593 1950 Unknown [id number] 593 Medicare Medicare unknown [id number] Medicare Medicare [id number] Unknown [id number] Unknown [id number] Social History Date Type Detail Facility Unknown if ever smoked [employer] Other Sex Assigned At Sex Assigned At Bir th [employer] Other Start: 01-10-2024 End: 06-14-2024 Tobacco smoking status NHIS Never smoked tobacco (finding) [facility] Start: 1950 Sex Assigned At Female F [facility] Start: 01-31-2025 Sex Female (finding) [facility] Medical Equipment Procedure Code Equipment Code Equipment Origin al Text Equipment Identifier Dates [employer] Delica Lancets [id number] Start: 10-07-2021 Blood Sugar Diagnostic (Onetouch Ultra Test) strip Start: 01-10-2024 Lancets (Onetouc h Delica Plus Lancet) 33 gauge misc Start: 01-10-2024 Blood Sugar Diagnostic (Onetouch Ultra Test) strip Start: 01-10-2024 Lancets (Onetouc h Delica Plus Lancet) 33 gauge misc Start: 01-10-2024 Blood Sugar Diagnostic (Onetouch Ultra Test) strip Start: 01-10-2024 Lancets (Onetouc h Delica Plus Lancet) 33 gauge misc Start: 01-10-2024 Blood Sugar Diagnostic (Onetouch Ultra Test) strip Start: 01-10-2024 Lancets (Onetouc h Delica Plus Lancet) 33 gauge misc Start: 01-10-2024 Blood Sugar Diagnostic (Onetouch Ultra Test) strip Start: 01-10-2024 Lancets (Onetouc h Delica Plus Lancet) 33 gauge misc Start: 01-10-2024 Progress note 01-25-2025 Note Date & Type Note Facility 01-25-2025 Note Subjective Patient ID: Tegan Jiménez is a 74 y.o. female who presents for Follow-up (Here for her yearly breast surveillance - review mammogram results.). HPI Very pleasant 74-year-old here for routine breast cancer screening. She has no dominant mass in either breast or either axilla. She does in her right breast have signs of having had a sebaceous cyst that she says that she expressed on her own and was on antibiotics from her family doctor and seems to have healed over. I have told her if this becomes problematic we would be happy to excise it for her. She will follow-up with us next year for ongoing breast cancer surveillance with a previsit mammogram. Sooner as needed. Review of Systems Had fractured her hip and has some arthritis. No other new complaints. Objective Visit Vitals BP (!) 196/82 (BP Location: Left arm, Patient Position: Sitting) Pulse 57 Temp 36.3 ???C (97.3 ???F) (Oral) Physical Exam Alert and oriented Chest symmetric excursion Breast no dominant mass in either breast or either axilla Abdomen soft Extremities full range of motion x 4 Assessment/Plan Diagnosis Plan 1. Encounter for breast cancer screening using non-mammogram modality Very pleasant 74-year-old here for routine breast cancer screening. She has no dominant mass in either breast or either axilla. She does in her right breast have signs of having had a sebaceous cyst that she says that she expressed on her own and was on antibiotics from her family doctor and seems to have healed over. I have told her if this becomes problematic we would be happy to excise it for her. She will follow-up with us next year for ongoing breast cancer surveillance with a previsit mammogram. Sooner as needed. No orders of the defined types were placed in this encounter. No results found for this or any previous visit (from the past 36 hour(s)). No follow-ups on file. [facility] Evaluation note 07-13-2023 Note Date & Type Note Facility 07-13-2023 Evaluation note Encounter Date Diagnosis Assessment Notes Jun, Controlled type 2 diabetes mellitus with hyperglycemia (ICD-10 - E11.65) [employer] Other Evaluation note 07-11-2023 Note Date & Type Note Facility 07-11-2023 Evaluation note Encounter Date Diagnosis Assessment Notes Jun, Medicare annual wellness visit, subsequent (ICD-10 - Z00.00) Personalized health advice was given to the beneficiary including a written plan for screenings discussed and provided. Advanced care planning reviewed and/or information given as requested. Additional counseling was provided here today in regards to, [ ]. The above visit was performed by [ ], under direct supervision of [ ]. Document reviewed and amended by provider signed below. Jun, Essential (primary) hypertension (ICD-10 - I10) chronic, stable - due for labs. continue present med Jun, Acquired hypothyroidism (ICD-10 - E03.9) chronic, stable, due for labs - continue present dose until labs rec'd Jun, Controlled type 2 diabetes mellitus with hyperglycemia (ICD-10 - E11.65) check glucose 2-3x/week. Monitor. continue healthy diet and exercise. [employer] Other Clinical Note 02-16-2023 Note Date & Type Note Facility 02-16-2023 Note PROCEDURE: XR FOOT R T MIN 3 VIEWS HISTORY: Pain in right foot ; first toe and dorsal foot pain after falling COMPARISON: None. FINDINGS: BONES:No fracture, acute abnormality, or significant arthropathy. SOFT TISSUES:No visible soft tissue swelling. EFFUSION:None visible. OTHER: Negative. IMPRESSION: 1. No acute bone abnormality. 2. Mild degenerative changes. Electronically authenticated by: ERICH RUGGIERO Date: 2023-02-16 10:56 [facility] Evaluation note Note Date & Type Note Facility Evaluation note No Information [facility] [employer] Other Evaluation note Note Date & Type Note Facility Evaluation note Diagnosis Onset Date Acquired hypothyroidism acut e Controlled type 2 diabetes m ellitus with hyperglycemia acute Essential (primary) hypertension acute [facility] Work Phone: Evaluation note Note Date & Type Note Facility Evaluation note Diagnosis Onset Date Acquired hypothyroidism acut e Anxiety acute Essential (primary) hypertension acute Palpitations acute [facility] Work Phone: Evaluation note Note Date & Type Note Facility Evaluation note Diagnosis Onset Date Acquired hypothyroidism acut e Anxiety acute Essential (primary) hypertension acute Palpitations acute Acquired hypothyroidism acut e Controlled type 2 diabetes m ellitus with hyperglycemia acute Essential (primary) hypertension acute Palpitations acute [facility] Work Phone: Evaluation note Note Date & Type Note Facility Evaluation note Diagnosis Onset Date Resolution Palpitations acute January 31, 2025 3:18pm [facility] Work Phone: History general Narrative - Reported Note Date & Type Note Facility History general Narrative - Reported Type Medical History Controlled type 2 di abetes mellitus with hyperglycemia Medical History Essential (primary) hypertension Medical History Osteoarthritis Medical History Acquired hypothyroidism Medical History Gastroesophageal reflux disease Medical History Carotid bruit Medical History Dyspnea on exertion Medical History Cervical radiculopathy Medical History Anemia Medical History Hyponatremia Surgical History R hip fracture - [place] Surgical History RLE vein ligation and stripping Surgical History Tonsillectomy and adenoidectomy Surgical History R breast biopsy 1977 Surgical History R saphenous vein ligation and s tripping 1981 Surgical History Colonscopy 2008 Surgical History Vaginal hysterectomy / BSO/ cystocele repair 2013 Hospitalization History SEE SURGICAL HX [facility] Other Summary Purpose Family History Relationship Condition Age at Onset Recorded Date/T juliette father Hepatitis Unknown Hypertension Unknown Not Specified Hypertension Unknown Hypothyroidism Unknown Relationship Condition Age at Onset Recorded Date/T juliette father Hepatitis Unknown Hypertension Unknown mother Hypertension Unknown Hypothyroidism Unknown Relationship Condition Age at Onset Recorded Date/T juliette father Hepatitis Unknown Hypertension Unknown Heart disease Unknown mother Hypertension Unknown Hypothyroidism Unknown Advance Directives Advance Directive Response Recorded Date/ Time Advance Directives No January 08 024 1:10pm Chief Complaint and Reason for Visit Chief Complaint Check Up Reason for Visit Acquired hypothyroid ism Controlled type 2 diabetes mellitus with hyperglycemia Essential (primary) hypertension Chief Complaint er f/u, irregular he artrate Reason for Visit Acquired hypothyroid ism Anxiety Essential (primary) hypertension Palpitations Chief Complaint er f/u, irregular he artrate Essential HTN Reason for Visit Acquired hypothyroid ism Anxiety Essential (primary) hypertension Palpitations Acquired hypothyroidism Controlled type 2 diabetes mellitus with hyperglycemia Essential (primary) hypertension Palpitations Chief Complaint er f/u, irregular he artrate Essential HTN R00.2 Reason for Visit Acquired hypothyroid ism Anxiety Essential (primary) hypertension Palpitations Acquired hypothyroidism Controlled type 2 diabetes mellitus with hyperglycemia Essential (primary) hypertension Palpitations Chief Complaint er f/u, irregular he artrate Essential HTN R00.2 R06.00 R07.89 Reason for Visit Acquired hypothyroid ism Anxiety Essential (primary) hypertension Palpitations Acquired hypothyroidism Controlled type 2 diabetes mellitus with hyperglycemia Essential (primary) hypertension Palpitations Chief Complaint Admit Date anxiety concerns January 31, 2025 3:1 8pm Reason for Visit Admit Date Palpitations January 31, 2025 3:1 8pm Additional Source Comments INFORMATION SOURCE (unrecogn ized section and content) DATE CREATED AUTHOR 03/28/2021 [facility] DATE CREATED AUTHOR AUTHOR'S ORGANIZ ATION 01/05/2022 [facility] DATE CREATED AUTHOR AUTHOR'S ORGANIZ ATION 02/19/2023 [facility] DATE CREATED AUTHOR AUTHOR'S ORGANIZ ATION 10/15/2024 [facility] DATE CREATED AUTHOR AUTHOR'S ORGANIZ ATION 01/29/[address] [facility] REASON FOR VISIT (unrecogniz ed section and content) [employer] [facility] [employer] Teams (unrecognized sec tion and content) Team Status: Active Member Role Status Eric Flood MD Primary Care Provider Active Team Status: Inactive Member Role Status Eric Flood MD Primary Care Provide r, Attending Provider Active Start: January 31, 2025 End: January 31, 2025 Team Status: Active Member Role Status Eric Flood MD Primary Care Provider Active Team Status: Active Member Role Status Eric Flood MD Primary Care Provider Active Start: May 01, 2024 Richard Tafoya MD Attending Provider Active St art: May 01, 2024 Team Status: Inactive Member Role Status Eric Flood MD Primary Care Provide r, Attending Provider Active Start: May 01, 2024 End: May 01, 2024 Team Status: Inactive Member Role Status Eric Flood MD Primary Care Provide r, Attending Provider Active Start: January 10, 2024 End: January 10, 2024 Team Status: Inactive Member Role Status Eric Flood MD Primary Care Provider Active Start: June 14, 2024 End: June 14, 2024 Aparna Otto MD Attending Provider Active Sta rt: June 14, 2024 End: June 14, 2024 Team Status: Active Member Role Status Eric Flood MD Primary Care Provider Active Start: June 14, 2024 Aparna Otto MD Attending Provider Active Sta rt: June 14, 2024 Team Status: Active Member Role Status Eric Flood MD Primary Care Provider Active Start: May 01, 2024 Moris Shook DO Attending Provider Active Sta rt: May 01, 2024 Team Status: Inactive Member Role Status Eric Flood MD Primary Care Provider Active Start: June 27, 2024 End: June 27, 2024 Aparna Otto MD Attending Provider Active Sta rt: June 27, 2024 End: June 27, 2024 Jumana Mendieta DO Referring Provider Active Sta rt: June 27, 2024 End: June 27, 2024 Team Status: Inactive Member Role Status Eric Flood MD Primary Care Provide r, Attending Provider Active Start: January 31, 2025 End: January 31, 2025 Goals (unrecognized section and content) Goals may be documented in a n alternate section FOR RECORDS PERTAINING TO PATIENTS WHO ARE OR HAVE BEEN ENROLLED IN A CHEMICAL DEPENDENCY/SUBSTANCEABUSE PROGRAM, SOME INFORMATION MAY BE OMITTED. This clinical summary was aggregated from multiple sources. Caution should be exercised in using it in the provision of clinical care. This summary normalizes information from multiple sources, and as a consequence, information in this document may materially change the coding, format and clinical context of patient data. In addition, data may be omitted in some cases. CLINICAL DECISIONS SHOULD BE BASED ON THE PRIMARY CLINICAL RECORDS. [facility] [employer] [facility]. provides no warranty or guarantee of the accuracy or completeness of information in this document.
== END 2025-02-01 09:10 | disposition home or self-care (01) ==
LOC: CARD 09:14
PROVIDERS: PCP Family Medicine; Visit Provider Family Medicine
DX: R00.2 Palpitations (principal)
CPT/HCPCS: 93005

== ENCOUNTER 2025-07-15 10:18 | Outpatient (OUT) | payer MEDICARE, OTHER, SELFPAY ==
--- OUTSIDE RECORDS SUMMARY | 2025-07-15 05:59 | XMS_ITS | Continuity of Care Document ---
Author Organization [facility] Address [address] [place] [address] Phone Care Team Providers Care Lofter Name Role Phone Jess Freed MD Primary Care Provider Jess Freed MD Attending Provider [phone] Care Teams Patient Care Team Team Status: Active Member Role Status Dates Jess Freed MD Primary Care Provider Active Patient Care Team Team Status: Inactive Member Role Status Dates Jess Freed MD Primary Care Provider Active Start: July 15, 2025 End: July 15, 2025 Jess Freed MD Attending Provider Active St art: July 15, 2025 End: July 15, 2025 Chief Complaint and Reason for Visit Chief Complaint Admit Date wellness July 15, 2025 9:15am Reason for Visit Admit Date Acquired hypothyroidism July 15, 2025 9:15am Anxiety July 15, 2025 9:15am Controlled type 2 diabetes mellitus with hyperglycemia July 15, 2025 9:15am Essential (primary) hypertension Septemb 2024 9:15am Medicare annual wellness visit, subseque nt July 15, 2025 9:15am Allergies, Adverse Reactions, Alerts Allergen Type Severity Reaction Last Updated Verified Status Comments atorvastatin Allergy Unknown Hives July 15, 2025 9:22am Yes Active LFT elevated ezetimibe Allergy Unknown Hives July 15, 2025 9:22am Yes Active muscle aches Penicillins Allergy Unknown Hives July 15, 2025 9:22am Yes Active Sulfa (Sulfonamide Antibiotics) Allergy Unknown Hives July 15, 2025 9:22am Yes Active Social History Smoking Status Status Start Date End Date Date of Observa tion Never smoked tobacco (finding) June 14, 2024 2:16pm Observation Status Observation Response Date of Response Legal Sex Female (finding) Sex Assigned At Female January Family History Relationship Condition Age at Onset Recorded Date/T juliette father Hepatitis Unknown Hypertension Unknown Heart disease Unknown mother Hypertension Unknown Hypothyroidism Unknown Problems Active Problems Medical Problem Onset Date Status Medicare annual wellness visit, subsequent Unkno wn Active Acquired hypothyroidism Unknown Active Palpitations Unknown Active Anxiety Unknown Active Essential (primary) hypertension Unknown Active Controlled type 2 diabetes mellitus with hypergl ycemia Unknown Active Medications Medication Status Dose Units Route Directions Qty Days St art Date Stop Date End Date Instructions Adherence Levothyroxi ne 75 mcg tablet Discont inued 0 .ROUTE .COMPLEX 90 January 12, 2024 2:32pm December 24, 2024 12:19 pm TAKE 1 TABLET BY MOUTH EVERY DAY Azithromyci n 250 mg tablet Discont inued 0 PO .COMPLEX February 22, 2024 12:00a m May 01, 2024 8:55a m For 250 mg dose pack: take 500 mg today (day 1), then 250 mg for 4 days (days 2-5) PO Metoprolol Succinate 25 mg tablet extended release 24 hr Discont inued 25 MG PO Daily May 28, 2024 8:23am Augus t 2023 2:53p m Losartan 50 mg tablet Discont inued 0 .ROUTE .COMPLEX 2023 10:37a m Octob er 2023 1:26p m TAKE 1 TABLET BY MOUTH EVERY DAY Metoprolol Succinate 50 mg tablet extended release 24 hr Discont inued 0 .ROUTE .COMPLEX 90 2023 2:11pm Decem 2023 2:35p m TAKE 1 TABLET BY MOUTH EVERY DAY Metoprolol Succinate 50 mg tablet extended release 24 hr Discont inued 50 MG PO Daily Decemb er 2023 2:34pm April 01, 2025 8:29a m Cephalexin 500 mg capsule Discont inued 500 MG PO Three times daily 2024 1:00am January 31, 2025 3:44p m Mupirocin 2 % ointment Discont inued 1 APPLIC TOPICA L Twice daily 2024 1:00am February 04, 2025 1:05p m Levothyroxi ne 75 mcg tablet Active 0 .ROUTE .COMPLEX 90 December 24, 2024 12:19p m TAKE 1 TABLET BY MOUTH EVERY DAY Complies with drug therapy Metformin 500 mg tablet Discont inued 0 .ROUTE .COMPLEX 180 December 24, 2024 12:19p m Augus t 2024 8:12a m TAKE 1 TABLET BY MOUTH TWICE A DAY WITH MEALS Losartan 50 mg tablet Active 75 MG PO Daily 135 March 25, 2025 8:40am Complies with drug therapy Metoprolol Succinate 50 mg tablet extended release 24 hr Active 0 .ROUTE .COMPLEX April 01, 2025 8:29am TAKE 1 TABLET BY MOUTH EVERY DAY Complies with drug therapy Metformin 500 mg tablet Active 0 .ROUTE .COMPLEX 180 June 04, 2025 8:12am TAKE 1 TABLET BY MOUTH TWICE A DAY WITH MEALS Complies with drug therapy Blood Sugar Diagnostic (TradeHarbortouch Ultra Test) strip Active 0 .Route 100 Septem 2024 8:43am use to test once a day Losartan 50 mg tablet Discont inued 1 TAB PO Daily January 09, 2024 12:00a [facility] 10[facility] am FreeTextSig: TAKE 1 TABLET BY MOUTH EVERY DAY; Note: Source Status: Start; Refills: 3; Qty: 90 Tablet; Provider: Lourdes Mercado ( ) Levothyroxi ne (Synthroid) 75 mcg tablet Discont inued 1 TAB PO Daily January 09, 2024 12:00a m January 12, 2024 2:32p m FreeTextSig: TAKE 1 TABLET BY MOUTH EVERY DAY; Note: Source Status: Taking; Provider: Lourdes Mercado ( ) Clotrimazol e-Betametha sone 1-0.05 % cream Discont inued 1 APPLIC TOPICA L Twice daily January 09, 2024 12:00a m January 10, 2024 8:57a m Multivit-Mi n-Fa-Lycope n-Lutein (Centrum Silver) 0.4 mg-300 mcg- 250 mcg tablet Active 1 TAB PO Daily January 09, 2024 12:00a m Complies with drug therapy Latanoprost 0.005 % drops Active 1 DROPS EYE-GIOVANNI TH Every evening January 10, 2024 12:00a m Complies with drug therapy Metoprolol Succinate 25 mg tablet extended release 24 hr Discont inued 25 MG PO Daily May 01, 2024 12:00a m Augus t 2023 8:23a m Alprazolam 0.25 mg tablet Discont inued 0.25 MG PO Twice daily as needed for anxiety 08 22May 01, 2024 12:00a m Augus t 2023 2:13p m Metoprolol Succinate 50 mg tablet extended release 24 hr Discont inued 50 MG PO Daily June 14, 2024 12:00a m Sept[facility] 2023 2:11p m Metoprolol Succinate 50 mg tablet extended release 24 hr Discont inued 75 MG PO Daily 135 90 Octobe r 2023 12:00a m Octob er 2023 1:27p m Losartan 50 mg tablet Discont inued 75 MG PO Daily 135 90 Octobe r 2023 12:00a m March 25, 2025 8:40a m Buspirone 5 mg tablet Discont inued 5 MG PO Twice daily as needed for anxiety January 31, 2025 12:00a m February 04, 2025 1:04p m Metformin 500 mg tablet Discont inued 500 MG PO Twice daily with meals 180 2023 12:00a m December 24, 2024 12:19 pm Lancets (Onetouch Delica Plus Lancet) [facility] 0 .Route January 10, 2024 12:00a m [facility] 2024 9:47a m use to test once a day Blood Sugar Diagnostic (Onetouch Ultra Test) strip Discont inued 0 .Route January 10, 2024 12:00a m [facility] 2024 8:44a m use to test once a day Lancets (Onetouch Delica Plus Lancet) 33 gauge misc Active 0 .Route 2024 9:47am use to test once a day Immunizations Immunization Event Date Not Given Reason Dose Number Training And Documentation Specialist Lot Number Vaccine Information Statement (VIS) Detail Administration Location [facility]/aKtalina ty, Pediatric Age 5-11 September 03, 2022 Fluzone TIV High-Dose [id number] August 23, 2024 [id number] [facility] influenza, unspecified formulation August 16, 2016 influenza, unspecified formulation September 08, 2017 influenza, unspecified formulation August 15, 2018 influenza, unspecified formulation August 16, 2019 influenza, unspecified formulation August 18, 2020 influenza, unspecified formulation August 10, 2021 influenza, unspecified formulation August 23, 2022 influenza, unspecified formulation August 19, 2023 Pneumococcal Conjugate Vaccine, 13 valent August 19, 2016 Pneumococcal Polysacc. Vaccine, 23 valent September 30, 2014 Tetanus, Diphtheria adult, 5 Lf pres free abs August 16, 2013 Tetanus, Diphtheria adult, 5 Lf pres free abs August 12, 2015 Vital Signs Vital Reading Result Reference Range Collection Date/Time Height 66 [in_i] July 15, 2025 9:18am Weight 80.28 kg July 15, 2025 9:18am Heart Rate 46 /min 60-100 July 15, 2025 9:18am BP Systolic 149 mm[Hg] 100-140 July 15, 2025 9:18am BP Diastolic 71 mm[Hg] 60-100 July 15, 2025 9:18am BMI (Body Mass Index) 28.5 kg/m2 2024 9:18am Advance Directives Advance Directive Response Recorded Date/ Time Advance Directives No January 08 024 1:10pm Insurance Providers Guarantor Ann Forbes Address [address] [place] [phone] Contact Info. Home Phone: Payer Policy Id Subscriber's Name Subscriber Id Effectiv e Date Expiration Date Medicare [id number] Ann Forbes [id number] Medicare [employer] [id number] Ann Forbes [id number] [facility] [id number] Ann Forbes [id number] Encounters Encounter Location(s) Arrival/Admit Date Discharge/Depart Date Provider(s) Departed Physician/Prov ider Office Visit -[facility] July 15, 2025 9:15am July 15, 2025 9:58am Jess Freed MD Recent Diagnosis Onset Date Admit Date Acquired hypothyroidism Unknown Septembe r 2024 9:15am Anxiety Unknown July 15, 2025 9:15am Controlled type 2 diabetes m carmen with hyperglycemia Unknown July 15, 2025 9:15am Essential (primary) hypertension Unknown July 15, 2025 9:15am Medicare annual wellness visit, subsequent Unkno wn July 15, 2025 9:15am Assessments Diagnosis Onset Date Resolution Status Admit Date Acquired hypothyroidism acute S eptember 2024 9:15am Anxiety acute June 9:15am Controlled type 2 diabetes mellitus with hyperglycemia acute Sept ember 2024 9:15am Essential (primary) hypertension acute July 15, 2025 9:15am Medicare annual wellness vis it, subsequent acute July 15, 2025 9:15am Plan of Treatment Future Tests Future scheduled test information is unavailable Pending Tests Test Name Ordered Date Scheduled Date Comprehensive Metabolic Panel July 15 9:47am Future Visits Future appointment information is unavailable Referrals to Other Providers Referral information is unavailable Future Procedures Procedure Name Ordered Date Scheduled Date A1C with Estimated Average Glu July 15 9:47am Complete Blood Count Auto Diff July 15 9:47am Follicle Stimulating Hormone July 15 9:47am MicroAlb Creat Ratio,U July 15, 2025 9:47 am Thyroid Stim Hormone w/Rflx July 15, 2025 9:47am Future Medications Future medication information is unavailable Patient Instructions Patient instructions are unavailable
--- OUTSIDE RECORDS SUMMARY | 2025-07-15 10:24 | XMS_ITS | Clinical Summary ---
Author Organization [facility] Address [address] [place] [address] Care Team Providers Care Bdr Name Role Phone Jess Freed MD Primary Care Provider [phone] Allergies Active Allergy Reactions Criticality Noted Date Comments Penicillins 12/28/2022 Other reaction(s): Hives Sulfa (Sulfonamide Antibiotics) 12/28/2022 Other reaction(s): Hives Medications losartan (Cozaar) 50 mg tablet Take 75 mg by mouth in the morning. Active metFORMIN (Glucophage) 1,000 mg tablet metformin 1,000 mg tablet TAKE 1 TABLET BY MOUTH EVERY DAY Active levothyroxine (Synthroid, Levoxyl) 75 mcg tablet levothyroxine 75 mcg tablet TAKE 1 TABLET BY MOUTH EVERY DAY Active folic acid/multivit- min/lutein (CENTRUM SILVER ORAL) Centrum Silver 1 tab daily Active OneTouch Delica Lancets 33 gauge misc USE TO TEST EVERYDAY 2 Active clotrimazole-b etamethasone (Lotrisone) cream APPLY TO AFFECTED AREA TWICE DAILY 2 Active OneTouch Ultra Test strip USE 1 DAILY 2 Active latanoprost (Xalatan) 0.005 % ophthalmic solution Administer 1 drop into both eyes at bedtime. 4 Active metoprolol succinate XL (Toprol-XL) 50 mg 24 hr tablet Take 1 tablet by mouth in the morning. 5 Active metFORMIN (Glucophage) 500 mg tablet Take 500 mg by mouth with breakfast and with evening meal. 5 Active Active Problems Problem Noted Date Diagnosed Date Essential hypertension 12/14/2018 Hypothyroidism 12/14/2018 Type 2 diabetes mellitus 12/14/2018 Abdominal pain 12/13/2018 Abnormal findings on diagnostic imaging of sera flower 12/13/2018 Family History Medical History Relation Name Comments Colon cancer Maternal Grandmother Cervical cancer Paternal Grandmother Relation Name Status Comments Maternal Grandmother Paternal Grandmother Social History Tobacco Use Types Packs/Day Years Used Date Smoking Tobacco: Never Smokeless Tobacco: Never Tobacco Cessation:Counseling Given: Not Answered Alcohol Use Standard Drinks/Week Comments Not Currently 0 (1 standard drink = 0.6 oz pur e alcohol) Humiliation, Afraid, Rape, and Kick questionnair e Answer Date Recorded Within the last year, have y ou been afraid of your partner or ex-partner? No 01/25/2025 Emotionally Abused Not on file 01/25/2025 Physically Abused Not on file 01/25/2025 Sexually Abused Not on file 01/25/2025 PHQ-2 Answer Date Recorded Patient Health Questionnaire-2 Score 0 01/25/2025 Comments Unknown Sex and Gender Information Value Date Recorded Sex Assigned at Not on file Legal Sex Female 12:12 AM EDT Gender Identity Not on file Sexual Orientation Not on file Last Filed Vital Signs Vital Sign Reading Time Taken Comments Blood Pressure 196/82 01/25/2025 1:26 PM EDT Pulse 57 01/25/2025 1:26 PM EDT Temperature 36.3 C (97.3 F) 01/25/2025 1:26 PM EDT Respiratory Rate - - Oxygen Saturation 100% 01/25/2025 1:26 PM EDT Inhaled Oxygen Concentration - - Weight 82.5 kg (181 lb 12.8 oz) 01/25/2025 1:26 PM EDT Height 170.2 cm (5' 7 ) 01/25/2025 1:26 PM EDT Body Mass Index 28.47 01/25/2025 1:26 PM EDT Plan of Treatment Upcoming Encounters Date Type Department Care Team (Late st Contact Info) Description 01/24/2026 1:15 PM EDT Follow-Up Ursula Greenwood [facility] [address] [place] [address] Andreas Brice MD [address] [place] [address] Health Maintenance Due Date Last Done Comments Diabetes: Hemoglobin A1C 1950 Medicare Annual Wellness (AWV) 1950 Diabetes: Retinopathy Screening 1959 Diabetes: Urine Protein Screening 02/11/1968 Adult Tetanus 1971 Zoster Vaccines (1 of 2) 1999 Pneumococcal Vaccine: 50+ Years (3 of 3 - PCV20 or PCV21) 08/19/2021 08/19/2016, 08/24/2013 COVID-19 Vaccine ( season) 2025 09/03/2022, 09/14/2021, 12/26/2020 Influenza Vaccine (#1) 2025 , 08/23/2022, 08/15/2018, Additional history exists Depression Screening 01/25/2026 01/25/2025 Fall Risk Screening 01/25/2026 01/25/2025 Colorectal Cancer Screening Discontinued FIT Discontinued 07/19/2022 Mammogram Discontinued 01/07/2025, 12/22, 12/29/2022, Additional history exists CT Colonography Discontinued Colonoscopy Discontinued FIT-DNA Discontinued FOBT Discontinued HIB Vaccines Aged Out No longer eligi ble based on patient's age to complete this topic HPV Vaccines Aged Out No longer eligi ble based on patient's age to complete this topic IPV Vaccines Aged Out No longer eligi ble based on patient's age to complete this topic Meningococcal B Vaccine Aged Out No l onger eligible based on patient's age to complete this topic Meningococcal Vaccine Aged Out No rowena rosario eligible based on patient's age to complete this topic Rotavirus Vaccines Aged Out No longer eligible based on patient's age to complete this topic Sigmoidoscopy Discontinued Procedures Procedure Name Priority Date/Time Associated Diagnosis Comments BI MAMMOGRAM SCREENING TOMOSYNTHESIS BILATERAL Routine 01/07/2025 8:31 AM EDT Screening mammogram for breast cancer from Last 3 Months or Most Recently Relevant to Health Maintenance Results * Bilateral screening mammogram with tomosynthesis (01/07/2025 8:31 AM EDT) Anatomical Region Laterality Modality Breast Bilateral Mammography 01/08/2025 8:11 AM EDT Impressions 01/08/2025 8:32 AM EDT No mammographic evidence of malignancy. BI-RADS: BI-RADS [...] above recommendation. Electronically signed: Yoel Jang MD. Narrative 01/08/2025 8:32 AM EDT ANN FORBES 1950 [id number] EXAM: BI MAMMOGRAM SCREENING TOMOSYNTHESIS BILATERAL, 01/07/2025 8:21 AM CLINICAL INDICATIONS: Screening, COMPARISON: 01/02/2024 and priors TECHNIQUE: Bilateral digital tomosynthesis MLO and CC views of the breasts were obtained, with creation of synthetic 2D views. Computer aided detection was utilized. FINDINGS: The breasts are heterogeneously dense, which may obscure small masses. There are no suspicious masses, calcifications, or areas of architectural distortion. Procedure Note Yoel Jang MD - 01/08/2025 ANN FORBES 1950 [id number] EXAM: BI MAMMOGRAM SCREENING TOMOSYNTHESIS BILATERAL, 01/07/2025 8:21AM CLINICAL INDICATIONS: Screening, COMPARISON: 01/02/2024 and priors TECHNIQUE: Bilateral digital tomosynthesis MLO and CC views of the breasts wereobtained, with creation of synthetic 2D views. Computer aided detection wasutilized. FINDINGS: The breasts are heterogeneously dense, which may obscure small masses. There are no suspicious masses, calcifications, or areas ofarchitectural distortion. IMPRESSION: No mammographic evidence of malignancy. BI-RADS: BI-RADS 1: Negative RECOMMENDATION: Routine Screening Mammogram in 1 Year RISK ASSESSMENT: TC lifetime risk: % The patient's reported personal and family medical history was used tocalculate their Tyrer-Cuzick lifetime risk of malignancy. Scores less than 20% arenot considered high risk per ACR guidelines and patient should continue withthe above recommendation. Electronically signed: Yoel Jang MD. Andreas Brice MD IMG BI PROCEDURES Final Re sult from Last 3 Months or Most Recently Relevant to Health Maintenance [place] [address] [facility] [place] [id number] [employer] Care Teams Bdr Relationship Specialty Start Date End Date Jess Freed MD [address] [facility] [address] PCP - General 12/28/22
--- OUTSIDE RECORDS SUMMARY | 2025-07-15 10:24 | XMS_ITS | Clinical Summary ---
Author Organization [facility] Address [address] [place] [address] Care Team Providers Care Hot Die Press Operator Name Role Phone Unavailable Primary Care Provider Unavailabl e Social History Tobacco Use Types Packs/Day Years Used Date Smoking Tobacco: Never Assessed Comments Unknown Sex and Gender Information Value Date Recorded Sex Assigned at Not on file Legal Sex Female 7:33 PM EDT Gender Identity Not on file Sexual Orientation Not on file Last Filed Vital Signs Vital Sign Reading Time Taken Comments Blood Pressure - - Pulse - - Temperature - - Respiratory Rate - - Oxygen Saturation - - Inhaled Oxygen Concentration - - Weight 84.4 kg (186 lb) 05/12/2021 12:00 PM EDT Height 170.2 cm (5' 7 ) 05/12/2021 12:00 PM EDT Body Mass Index 29.13 05/12/2021 12:00 PM EDT Plan of Treatment Health Maintenance Due Date Last Done Comments Pneumococcal Vaccine: 65+ Years (2 of 2 - PCV) 014 08/24/2013 Influenza Vaccine (#1) 2025 08/25/2015 [place] [phone]
--- OUTSIDE RECORDS SUMMARY | 2025-07-15 10:26 | XMS_ITS | CCD ---
Author Organization [facility] Care Team Providers Care Junior Accountant Bookkeeper Name Role Phone REMIGIO, DR JESS Campbell Admitting Unavailable FLOOD, DR JESS Campbell Attending Unavailable FLOOD, DR JESS Campbell Consulting Unavailable FLOOD, DR JESS Campbell Primary Care Unavailable FLOOD, DR JESS Campbell Primary Care Unavailable PIERCE, DR ANGELICA Nolen Consulting Unavailable FLOOD, DR [...] FLOOD, DR JESS Campbell Primary Care [facility] ERICH Gregory Consulting Unavailable FLOOD, DR JESS Campbell Admitting Unavailable FLOOD, DR JESS Campbell Attending Unavailable FLOOD, DR JESS Campbell Consulting Unavailable FLOOD, DR JESS Campbell Consulting Unavailable FLOOD, DR JESS Campbell Admitting Unavailable FLOOD, DR JESS Campbell Attending Unavailable FLOOD, DR JESS Campbell Primary Care [facility] Unavailable FLOOD, DR JESS Campbell Admitting Unavailable FLOOD, DR JESS Campbell Attending Unavailable FLOOD, DR JESS Campbell Consulting Unavailable FLOOD, DR JESS Campbell Primary Care Unavailable Jess Flood Unavailable MD Jess Flood Primary Care Provider MD Aparna Otto Attending Provider [phone] DO Jumana Mendieta Referring Provider Jess Flood Primary Care Unavailable Aparna Otto Attending Unavailable Aparna Otto Admitting Unavailable Jumana Mendieta Referring Unavailable Jess Flood Primary Care Unavailable Aparna Otto Attending Unavailable Aparna Otto Admitting Unavailable CYNDI COUGHLIN Attending Unavailable CYNDI COUGHLIN Referring Unavailable Jess Flood MD Primary Care Provider [phone] Jess Flood MD Attending Provider Allergies Allergy Classification Reported Allergen(s) Allergy Type Date of Onset Reaction(s) Facility (1 source) Penicillin Drug Allergy [facility] (1 source) Sulfamethoxazole / Trimethoprim Drug Allergy [facility] (10 sources) atorvastatin Drug Allergy 01-10-20 Unknown, [facility] Comment on above: LFT elevated (10 sources) ezetimibe Drug Allergy 01-10-20 Unknown, [facility] Comment on above: muscle aches (3 sources) Substance with penicillin structure and antibacterial mechanism of action (substance) Drug allergy Unknown [facility] [employer] Other (3 sources) Substance with sulfonamide structure and antibacterial mechanism of action (substance) Drug allergy Unknown [facility] [employer] Other (9 sources) Penicillins; Translations: [Penicillins] Allergy to substance 12-29-19 23 [facility] (9 sources) Sulfonamides (Antibiotic); Translations: [Sulfa (Sulfonamide Antibiotics)] Allergy to substance 12-29-19 23 [facility] (1 source) atorvastatin Drug Allergy 07-26-20 [facility] (1 source) ezetimibe Drug Allergy 07-26-20 [facility] Medications Current Medications Medication Drug Class(es) Dates Sig (Normalized) Sig (Original) Centrum Silver (3 sources) Start: 08-17-2013 Centrum Silver Centrum Silver , daily # 0.00, 08/17/2013, No Refill. Active daily for 0 *Pick strength-form from [employer] for eRX* Jul, Active Clotrimazole-Betam ethasone 1-0.05% (3 sources) Start: 07-12-2022 Clotrimazole-Beta methasone 1-0.05% clotrimazole-beta methasone 1-0.05%, 1 application 2 times per day # 1, 07/12/2022, Ref. x1. Active topical 2 times per day for 0 *Pick strength-form from [employer] for eRX* Jun, Active Handicap Placard (3 sources) Start: 07-12-2022 Handicap Placard HandiCap Placard , as directed # 2, 07/12/2022, No Refill. Active Does not apply as directed for 0 duration 5 years *Reorder from [employer] for eRx and Interaction Alerts* Jun, Active latanoprost 0.05 mg/ml ophthalmic solution (7 sources) Prostaglandin Analog Start: 01-10-2024 take 1 drop(s) into the eye(s) once daily in the evening Latanoprost 0.005 % drops Active 1 DROPS EYE-BOTH Every evening January 10, 2024 12:00am Complies with drug therapy Start: 01-10-2024 take 1 drop(s) into the eye(s) once daily in the evening Latanoprost 0.005 % drops Active 1 DROPS EYE-BOTH Every evening January 10, 2024 12:00am Start: 01-10-2024 take 1 drop(s) into the eye(s) once daily in the evening Latanoprost Active 1 DROPS EYE-BOTH Every evening January 10, 2024 12:00am levothyroxine sodium 0.075 mg oral tablet (18 sources) l-Thyroxine Start: 01-12-2024 End: 12-24-2024 take 1 tablet by mouth once daily Levothyroxine 75 mcg tablet Active 0 .ROUTE .COMPLEX 90 December 24, 2024 12:19pm TAKE 1 TABLET BY MOUTH EVERY DAY Complies with drug therapy Start: 01-09-2024 End: 01-12-2024 take 1 tablet [...] Active losartan potassium 50 mg oral tablet (15 sources) Angiotensin 2 Receptor [place] Start: 07-26-2024 End: 03-25-2025 Losartan 50 mg tablet Active 75 MG PO Daily 135 90 March 25, 2025 8:40am Complies with drug therapy Start: 07-09-2024 End: 07-26-2024 take 1 tablet [...] x3. Active Oral daily *Pick strength-form from [employer] for eRX* Oct, Active metFORMIN hydrochloride 500 mg oral tablet (5 sources) Biguanide Start: 12-24-2024 End: 06-04-2025 take 1 tablet by mouth twice daily at mealtime Metformin 500 mg tablet Active 0 .ROUTE .COMPLEX 180 June 04, 2025 8:12am TAKE 1 TABLET BY MOUTH TWICE A DAY WITH MEALS Complies with drug therapy Start: 07-12-2024 End: 12-24-2024 take 1 tablet by mouth twice daily at mealtime Metformin 500 mg tablet Discontinued 500 MG PO Twice daily with meals 180 July 12, 2024 12:00am December 24, 2024 12:19pm 24 hr metoprolol succinate 50 mg extended release oral tablet (20 sources) beta-Adrenergic [place] Start: 04-01-2025 take 1 tablet by mouth once daily Metoprolol Succinate 50 mg tablet extended release 24 hr Active 0 .ROUTE .COMPLEX April 01, 2025 8:29am TAKE 1 TABLET BY MOUTH EVERY DAY Complies with drug therapy Start: 10-11-2024 End: 04-01-2025 take 1 tablet by mouth once daily Metoprolol Succinate 50 mg tablet extended release 24 hr Discontinued 50 MG PO Daily October 11, 2024 2:34pm April 01, 2025 8:29am Start: 07-26-2024 End: 07-26-2024 Metoprolol Succinate 50 mg t ablet extended release 24 hr Discontinued 75 MG PO Daily 135 July 26, 2024 12:00am July 26, 2024 1:27pm Start: 07-12-2024 End: 10-11-2024 take 1 tablet by mouth once daily Metoprolol Succinate 50 mg tablet extended release 24 hr Discontinued 0 .ROUTE .COMPLEX July 12, 2024 2:11pm October 11, 2024 2:35pm TAKE 1 TABLET BY MOUTH EVERY DAY Start: 07-12-2024 End: 10-11-2024 take 1 tablet [...] 28, 2024 8:23am June 14, 2024 2:53pm Zbxqlexn-Vts-Dy-Lycopen-Lute in (Centrum Silver) 0.4 mg-300 mcg- 250 mcg tablet (7 sources) Start: 01-09-2024 take 1 tablet by mouth once daily Gthibezq-Foq-Bf-Lycopen-Lutein (Centrum Silver) 0.4 mg-300 mcg- 250 mcg tablet Active 1 TAB PO Daily January 09, 2024 12:00am Complies with drug therapy Start: 01-09-2024 take 1 tablet by sienna once daily Edmepbwc-Pht-Fu-Lycopen-Lutein (Centrum Silver) 0.4 mg-300 mcg- 250 mcg tablet Active 1 TAB PO Daily January 09, 2024 12:00am OneTouch Ultra 2 (3 sources) Start: 10-06-2021 OneTouch Ultra 2 OneTouch Ultra 2 , 1 (one) Kit test daily # 1, 10/06/2021, No Refill. Active test daily for 0 or whatever is covered Sep, Active OneTouch Ultra Test (3 sources) Start: 10-08-2022 OneTouch Ultra Test OneTouch Ultra Test , 1 (one) Each daily # 100, 10/08/2022, Ref. x2. Active miscellaneous daily for 90 days *Reorder from [employer] for eRx and Interaction Alerts* Sep, Active Completed/Discontinued Medications Medication Drug Class(es) Dates Sig (Normalized) Sig (Original) ALPRAZolam 0.25 mg oral tablet (6 sources) Benzodiazepine Start: 05-01-2024 End: 06-14-2024 take 1 tablet by mouth twice daily as needed for anxiety Alprazolam 0.25 mg tablet Discontinued 0.25 MG PO Twice daily as needed for anxiety 08 22May 01, 2024 12:00am June 14, 2024 2:13pm azithromycin 250 mg oral tablet (6 sources) Macrolide Antimicrobial Start: 02-22-2024 End: 05-01-2024 [...] mg/ml / clotrimazole 10 mg/ml topical cream (7 sources) Azole Antifungal, Corticosteroid Start: 01-09-2024 End: 01-10-2024 Clotrimazole-Betamethasone 1-0.05 % cream Discontinued 1 APPLIC TOPICAL Twice daily January 09, 2024 12:00am January 10, 2024 8:57am busPIRone hydrochloride 5 mg oral tablet (2 sources) Start: 01-31-2025 End: 02-04-2025 take 1 tablet by mouth twice daily as needed for anxiety Buspirone 5 mg tablet Discontinued 5 MG PO Twice daily as needed for anxiety January 31, 2025 12:00am February 04, 2025 1:04pm cephalexin 500 mg oral capsule (2 sources) Cephalosporin Antibacterial Start: 12-13-2024 End: 01-31-2025 take 1 capsule by mouth three times daily Cephalexin 500 mg capsule Discontinued 500 MG PO Three times daily 13 05December 13, 2024 1:00am January 31, 2025 3:44pm mupirocin 0.02 mg/mg topical ointment (2 sources) RNA Synthetase Inhibitor Antibacterial Start: 12-13-2024 End: 02-04-2025 Mupirocin 2 % ointment Discontinued 1 APPLIC TOPICAL Twice daily December 13, 2024 1:00am February 04, 2025 1:05pm Problems Active Problems Problem Classification Problem Date Documented Date Episodic/Chronic Anxiety disorders (11 sources) Anxiety; Translations: [Anxiety disorder, unspecified] 05-01-2024 Chronic Cardiac dysrhythmias (15 sources) Palpitations; Translations: [Palpitations] Onset: 06-14-2024 05-01-2024 Episodic Deficiency and other anemia (3 sources) Anemia; Translations: [Anemia, unspecified] Episodic Diabetes mellitus with complications (18 sources) Type 2 diabetes mellitus with hyperglycemia; Translations: [Hyperglycemia due to type 2 diabetes mellitus] Onset: 07-13-2022 Chronic Esophageal disorders (3 sources) Gastroesophageal reflux disease; Translations: [Gastro-esophageal reflux disease without esophagitis] Chronic Essential hypertension (20 sources) Essential (primary) hypertension; Translations: [Essential hypertension] [...] Translations: [Radiculopathy, cervical region] Episodic Thyroid disorders (20 sources) Hypothyroidism, unspecified; Translations: [Acquired hypothyroidism] Onset: [...] 01/28/2025 02:56 PM Modules accepted: Orders Normal [facility] Follow-Upon 01-25-2025 Follow-Up [id number] Marisel Jiménez 1950 F Date Provider Department Center 01/25/2025 Kesha-CYNDI COUGHLIN DCC ONC DCC Family History Problem Relation Age of Onset Colon cancer Maternal Grandmother Cervical cancer Paternal Grandmother Family Status - Relation Status Age at Maternal Grandmother Paternal Grandmother Level of Service:NOCHG [place]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 Normal [facility] BI MAMMOGRAM SCREENING TOMOS YNTHESIS BILATERALon 01-07-2025 BI MAMMOGRAM SCREENING TOMOSYNTHESIS BILATERAL This is a summary report. The complete report is available in the patient's medical record. If you cannot access the medical record, please contact the sending organization for a detailed fax or copy. ANN JIMÉNEZ 1950 [id number] EXAM: BI MAMMOGRAM SCREENING TOMOSYNTHESIS BILATERAL, 01/07/2025 [...] recommendation. Electronically signed: Yoel Jang MD. Normal [facility] NM wagner perf SPECT rest stron 06-27-2024 NM wagner perf SPECT rest str [facility] Main [address] [address] Nuclear Medicine Report Signed Patient: Ann Jiménez MR#: [id number] : 1950 Acct:[id number] Age/Sex: 74 / F ADM Date: 06/27/24 Loc: NM Room: Type: REG CLI Attending Dr: Aparna Otto MD Copies to: [...] Jumana Mendieta D.O.06/27/2024 2:54 PM Dictation Location: [place] [address] Transcribed By: REJI 06/27/24 1454 Dictated By: Jumana Mendieta DO 06/27/24 1444 Signed By: 06/27/24 1454 Normal [facility] FPG ECG *CARDIOLOGY ONLY*on 06-14-2024 FPG ECG *CARDIOLOGY ONLY* [facility] Main [place] [address] [place] [address] Electrocardiograph Report Signed Patient: Ann Jiménez MR#: [id number] : 1950 Acct:[id number] Age/Sex: 74 / F ADM Date: 06/14/24 Loc: EKGCARDIO Room: Type: [facility] CLI Attending Dr: Aparna Otto MD Ordering Provider: [...] Otherwise normal ECG Confirmed by Aparna Otto ([id number]) on 06/15/2024 2:57:40 PM Referred By: Electronically Signed By: Aparna Otto Transcribed By: MUS Signed By Aparna Otto MD 4 1457 Normal [facility] Basophils Auto (Bld) [#/Vol] on 05-01-2024 Basophils (Bld) [#/Vol] 0.1 10 3/uL 0.0-0.1 [facility] Basophils/100 WBC Auto (Bld) on 05-01-2024 Basophils/100 WBC (Bld) 0.9 % 0.2-2.0 [facility] Eosinophils/100 WBC Auto (Bl d)on 05-01-2024 Eosinophils/100 WBC (Bld) 3.4 % 0.9-7.0 [facility] Erythrocyte distribution wid th Auto (RBC) [Ratio]on 05-01-2024 Erythrocyte distribution width (RBC) [Ratio] 13.5 % 11.0-15.0 [facility] Estimated glomerular filtrat ion rate (GFR) non- Americanon 05-01-2024 GFR/1.73 sq M.predicted among non-blacks MDRD (S/P/Bld) [Vol rate/Area] 47 mL/min/{1.73_m2} Low >=60 [facility] Fibrin D-dimer [Presence] in Platelet poor plasma by Latex agglutinationon 05-01-2024 Fibrin D-dimer LA Ql (PPP) 0.35 mg/L FEU <=0.59 [facility] Comment on above: Increases in D-Dimer concentration [...] Hematocrit (Bld) [Volume fraction] 43.8 % 36.0-48.0 [facility] Hemoglobin [Mass/volume] in Bloodon 05-01-2024 Hemoglobin (Bld) [Mass/Vol] 14.3 g/dL 12.0-16.0 [facility] Laboratory - Chemistry and C hemistry - challengeon 05-01-2024 Calcium [Mass/Vol] 9.4 mg/dL 8.5-10.1 [facility] Chloride [Moles/Vol] 100 mmol/L 98-107 [facility] CO2 [Moles/Vol] 26.4 mmol/L 21.0-32.0 [facility] Creatinine [Mass/Vol] 1.12 mg/dL High 0.55-1.02 [facility] Free T4 [Mass/Vol] 1.10 ng/dL 0.76-1.46 [facility] GFR/1.73 sq M.predicted MDRD (S/P/Bld) [Vol rate/Area] 57 mL/min/{1.73_m2} Low >=60 [facility] Glucose [Mass/Vol] 155 mg/dL High 74-106 [facility] Potassium [Moles/Vol] 3.6 mmol/L 3.5-5.1 [facility] Sodium [Moles/Vol] 138 mmol/L 136-145 [facility] TSH Qn 1.244 m[IU]/L 0.358-3.740 [facility] Urea nitrogen [Mass/Vol] 19.0 mg/dL High 7.0-18.0 [facility] Urea nitrogen/Creatinine [Mass ratio] 17.0 mg/mg [facility] Laboratory - Hematology and Cell countson 05-01-2024 Immature granulocytes/100 WBC (Bld) 0.0 % 0.0-0.5 [facility] Leukocytes [#/volume] correc ruthie for nucleated erythrocytes in Blood by Automated counon 05-01-2024 WBC corrected for nucl RBC Auto (Bld) [#/Vol] 6.5 10 3/uL 4.0-11.0 [facility] Lymphocytes Auto (Bld) [#/Vo l]on 05-01-2024 Lymphocytes (Bld) [#/Vol] 3.0 10 3/uL 1.2-3.8 [facility] Lymphocytes/100 WBC Auto (Bl d)on 05-01-2024 Lymphocytes/100 WBC (Bld) 45.9 % 20.5-60.0 [facility] MCH Auto (RBC) [Entitic mass ]on 05-01-2024 MCH (RBC) [Entitic mass] 31.2 pg 26.7-34.0 [facility] MCHC Auto (RBC) [Mass/Vol]on 05-01-2024 MCHC (RBC) [Mass/Vol] 32.6 g/dL 29.9-35.2 [facility] MCV Auto (RBC) [Entitic vol] on 05-01-2024 MCV (RBC) [Entitic vol] 95.4 fL 81.0-99.0 [facility] Monocytes Auto (Bld) [#/Vol] on 05-01-2024 Monocytes (Bld) [#/Vol] 0.6 10 3/uL 0.3-0.8 [facility] Monocytes/100 WBC Auto (Bld) on 05-01-2024 Monocytes/100 WBC (Bld) 9.2 % 1.7-12.0 [facility] Neutrophils Auto (Bld) [#/Vo l]on 05-01-2024 Neutrophils (Bld) [#/Vol] 2.6 10 3/uL 1.4-6.5 [facility] Neutrophils/100 WBC Auto (Bl d)on 05-01-2024 Neutrophils/100 WBC (Bld) 40.6 % Low 43.0-75.0 [facility] No Panel Informationon 05-01 Troponin I High Sensitivity 21.5 pg/mL 4.0-51.3 [facility] Comment on above: CUT-OFF POINTS HAVE BEEN [...] Eosinophils # (Auto) 0.2 10 3/uL 0.0-0.7 [facility] Immature Granulocyte # (Auto) 0.00 10 3/uL 0.00-0.03 [facility] Platelet mean volume Auto (B ld) [Entitic vol]on 05-01-2024 Platelet mean volume (Bld) [Entitic vol] 11.9 fL 9.5-13.5 [facility] Platelets Auto (Bld) [#/Vol] on 05-01-2024 Platelets (Bld) [#/Vol] 205 10 3/uL 150-450 [facility] RBC Auto (Bld) [#/Vol]on RBC (Bld) [#/Vol] 4.59 10 6/uL 4.20-5.40 [facility] Serum or plasma anion gap de terminationon 05-01-2024 Anion gap [Moles/Vol] 15.2 mmol/L [facility] CBC AUTO DIFFon 07-12-2022 BASO # 0.1 103/ul Normal 0.0-0.1 [facility] Comment on above: Performed By: #### C BC #### [facility] [address] [place] [address] Dr. Hermes Cobb Basophils/100 WBC (Bld) 1.2 % Normal 0.2-2.0 [facility] Comment on above: Performed By: #### C BC #### [facility] [address] [place] [address] Dr. Hermes Cobb EO # 0.1 103/ul Normal 0.0-0.7 [facility] Comment on above: Performed By: #### C BC #### [facility] [address] [place] [address] Dr. Hermes Cobb Eosinophils/100 WBC (Bld) 2.8 % Normal 0.9-7.0 [facility] Comment on above: Performed By: #### C BC #### [facility] [address] [place] [address] Dr. Hermes Cobb Erythrocyte distribution width (RBC) [Ratio] 13.5 % Normal 11.0-15.0 [facility] Comment on above: Performed By: #### C BC #### [facility] [address] [place] [address] Dr. Hermes Cobb Hematocrit (Bld) [Volume fraction] 41.1 % Normal 36.0-48.0 [facility] Comment on above: Performed By: #### C BC #### [facility] [address] [place] [address] Dr. Hermes Cobb Hemoglobin (Bld) [Mass/Vol] 13.4 g/dL Normal 12.0-16.0 [facility] Comment on above: Performed By: #### C BC #### [facility] [address] [place] [address] Dr. Hermes Cobb IG # 0.01 10e3/ul Normal 0.00-0.03 [facility] Comment on above: Performed By: #### C BC #### [facility] [address] [place] [address] Dr. Hermes Cobb IG % 0.2 % Normal 0.0-0.5 [facility] Comment on above: Performed By: #### C BC #### [facility] [address] [place] [address] Dr. Hermes Cobb LYMPH # 1.5 103/ul Normal 1.2-3.8 [facility] Comment on above: Performed By: #### C BC #### [facility] [address] [place] [address] Dr. Hermes Cobb Lymphocytes/100 WBC (Bld) 35.5 % Normal 20.5-60.0 [facility] Comment on above: Performed By: #### C BC #### [facility] [address] [place] [address] Dr. Hermes Cobb MANUAL DIFF REQ NO Normal [facility] Comment on above: Performed By: #### C BC #### [facility] [address] [place] [address] Dr. Hermes Cobb MCH (RBC) [Entitic mass] 30.9 pg Normal 26.7-34.0 [facility] Comment on above: Performed By: #### C BC #### [facility] [address] [place] [address] Dr. Hermes Cobb MCHC (RBC) [Mass/Vol] 32.6 g/dL Normal 29.9-35.2 [facility] Comment on above: Performed By: #### C BC #### [facility] [address] [place] [address] Dr. Hermes Cobb MCV (RBC) [Entitic vol] 94.9 fL Normal 81.0-99.0 [facility] Comment on above: Performed By: #### C BC #### [facility] [address] [place] [address] Dr. Hermes Cobb MONO # 0.4 103/ul Normal 0.3-0.8 [facility] Comment on above: Performed By: #### C BC #### [facility] [address] [place] [address] Dr. Hermes Cobb Monocytes/100 WBC (Bld) 8.8 % Normal 1.7-12.0 [facility] Comment on above: Performed By: #### C BC #### [facility] [address] [place] [address] Dr. Hermes Cobb NEUT # 2.2 103/ul Normal 1.4-6.5 [facility] Comment on above: Performed By: #### C BC #### [facility] [address] [place] [address] Dr. Hermes Cobb Neutrophils/100 WBC (Bld) 51.5 % Normal 43.0-75.0 [facility] Comment on above: Performed By: #### C BC #### [facility] [address] [place] [address] Dr. Hermes Cobb Platelet mean volume (Bld) [Entitic vol] 10.8 fL Normal 9.5-13.5 [facility] Comment on above: Performed By: #### C BC #### [facility] [address] [place] [address] Dr. Hermes Cobb PLT 236 103/ul Normal 150-450 [facility] Comment on above: Performed By: #### C BC #### [facility] [address] [place] [address] [address] Hermes Cobb RBC 4.33 106/ul Normal 4.20-5.40 [facility] Comment on above: Performed By: #### C BC #### [facility] [address] [place] [address] [address] Hermes Cobb WBC 4.2 103/ul Normal 4.0-11.0 [facility] Comment on above: Performed By: #### C BC #### [facility] [address] [place] [address] Dr. Hermes Cobb FREE T4on 07-12-2022 Free T4 [Mass/Vol] 1.12 ng/dL Normal 0.76-1.46 [facility] Comment on above: Performed By: #### C BC #### [facility] [address] [place] [address] Dr. Hermes Cobb GLYCOHEMOGLOBIN A1Con 2021 ADA RECOMMENDATION SEE BELOW Normal [facility] Comment on above: Result Comment: ADA RECOMMENDED LIMIT 4.0 - 6.0 ADA THERAPEUTIC TARGET < 7.0 ACTION SUGGESTED > 7.0 Performed By: #### U COMFORT ERWIN #### [facility] [address] [place] [address] Dr. Hermes Cobb Glucose [Mass/Vol] 151 mg/dL Normal [facility] Comment on above: Performed By: #### U COMFORT ERWIN #### [facility] [address] [place] [address] Dr. Hermes Cobb HbA1c (Bld) [Mass fraction] 6.9 % Critically high 4.5-6.2 [facility] Comment on above: Performed By: #### U KARIN ERWINRO #### [facility] [address] [place] [address] Dr. Hermes Cobb PROF CHEM 8 (BAS METB)on Anion gap [Moles/Vol] 12.6 mmol/L Normal [facility] Comment on above: Performed By: #### C BC #### [facility] [address] [place] [address] [address] Hermes Cobb Calcium [Mass/Vol] 9.0 mg/dL Normal 8.5-10.1 [facility] Comment on above: Performed By: #### C BC #### [facility] [address] [place] [address] [address] Hermes Cobb Chloride [Moles/Vol] 102 mmol/L Normal 98-107 [facility] Comment on above: Performed By: #### C BC #### [facility] [address] [place] [address] [address] Hermes Cobb CO2 [Moles/Vol] 27.5 mmol/L Normal 21.0-32.0 [facility] Comment on above: Performed By: #### C BC #### [facility] [address] [place] [address] Dr. Hermes Cobb Creatinine [Mass/Vol] 1.06 mg/dL Critically high 0.55-1.02 [facility] Comment on above: Performed By: #### C BC #### [facility] [address] [place] [address] [address] Hermes Cobb EGFR-AF CITIZEN [place] >60 Normal >=60 [facility] Comment on above: Performed By: #### C BC #### [facility] [address] [place] [address] [address] Hermes Cobb EGFR-NON AF CITIZEN OF [place] 51 mL/min/1.73m2 Critically low >=60 [facility] Comment on above: Performed By: #### C BC #### [facility] [address] [place] [address] [address] Hermes Cobb Glucose [Mass/Vol] 169 mg/dL Critically high 74-106 [facility] Comment on above: Performed By: #### C BC #### [facility] [address] [place] [address] [address] Hermes Cobb Potassium [Moles/Vol] 4.1 mmol/L Normal 3.5-5.1 [facility] Comment on above: Performed By: #### C BC #### [facility] [address] [place], [place] [address] Dr. Hermes Cobb Sodium [Moles/Vol] 138 mmol/L Normal 136-145 [facility] Comment on above: Performed By: #### C BC #### [facility] [address] [place], [place] [address] Dr. Hermes Cobb Urea nitrogen [Mass/Vol] 14.0 mg/dL Normal 7.0-18.0 [facility] Comment on above: Performed By: #### C BC #### [facility] [address] [place], [place] [address] Dr. Hermes Cobb Urea nitrogen/Creatinine [Mass ratio] 13.2 mg/mg Normal [facility] Comment on above: Performed By: #### C BC #### [facility] [address] [place], [place] [address] Dr. Hermes Cobb TSHon 07-12-2022 TSH 1.229 uIU/mL Normal 0.358-3.740 [facility] Comment on above: Performed By: #### U ACSIND, UMICRO #### [facility] [address] [place], [place] [address] Dr. Hermes Cobb MRI BRAIN WO CONon 2 MRI BRAIN [facility] EXAMINATION: MRI BRA IN [facility], 04/16/2022 8:29 AM EDT HISTORY: Musculoskeletal symptom [...] by: ERICH RUGGIERO Date: 2022-04-16 12:10 Normal [facility] US CAROTID ART BILon 06-16-2 022 US CAROTID ART ALICJA EXAMINATION: US [...] ANGELICA JO Date: 2022-04-08 11:43 Normal [facility] CBC AUTO DIFFon 04-07-2022 BASO # 0.0 103/ul Normal 0.0-0.1 [facility] Comment on above: Performed By: #### U COMFORT ERWIN #### [facility] [address] [place] [address] Dr. Hermes Cobb Basophils/100 WBC (Bld) 0.9 % Normal 0.2-2.0 [facility] Comment on above: Performed By: #### U COMFORT ERWIN #### [facility] [address] [place] [address] [address] Hermes Cobb EO # 0.1 103/ul Normal 0.0-0.7 [facility] Comment on above: Performed By: #### U COMFORT ERWIN #### [facility] [address] [place] [address] Dr. Hermes Cobb Eosinophils/100 WBC (Bld) 1.1 % Normal 0.9-7.0 [facility] Comment on above: Performed By: #### U COMFORT ERWIN #### [facility] [address] [place] [address] Dr. Hermes Cobb Erythrocyte distribution width (RBC) [Ratio] 13.2 % Normal 11.0-15.0 [facility] Comment on above: Performed By: #### U ACSKATHRINE UMICRO #### [facility] [address] [place] [address] Dr. Hermes Cobb Hematocrit (Bld) [Volume fraction] 41.6 % Normal 36.0-48.0 [facility] Comment on above: Performed By: #### U ACSKATHRINE UMICRO #### [facility] [address] [place] [address] Dr. Hermes Cobb Hemoglobin (Bld) [Mass/Vol] 13.6 g/dL Normal 12.0-16.0 [facility] Comment on above: Performed By: #### U ACSKATHRINE UMICRO #### [facility] [address] [place] [address] Dr. Hermes Cobb IG # 0.01 10e3/ul Normal 0.00-0.03 [facility] Comment on above: Performed By: #### U ACSKATHRINE ICRO #### [facility] [address] [place] [address] Dr. Hermes Cobb IG % 0.2 % Normal 0.0-0.5 [facility] Comment on above: Performed By: #### U ACSKATHRINE UMICRO #### [facility] [address] [place] [address] Dr. Hermes Cobb LYMPH # 1.0 103/ul Critically low 1.2-3.8 [facility] Comment on above: Performed By: #### U ACSKATHRINE UMICRO #### [facility] [address] [place] [address] Dr. Hermes Cobb Lymphocytes/100 WBC (Bld) 20.9 % Normal 20.5-60.0 [facility] Comment on above: Performed By: #### U ACSKTAHRINE UMICRO #### [facility] [address] [place] [address] Dr. Hermes Cobb MANUAL DIFF REQ NO Normal [facility] Comment on above: Performed By: #### U YAIMA UMICRO #### [facility] [address] [place] [address] Dr. Hermes Cobb MCH (RBC) [Entitic mass] 31.2 pg Normal 26.7-34.0 [facility] Comment on above: Performed By: #### U YAIMA UMICRO #### [facility] [address] [place] [address] Dr. Hermes Cobb MCHC (RBC) [Mass/Vol] 32.7 g/dL Normal 29.9-35.2 [facility] Comment on above: Performed By: #### U YAIMA UMICRO #### [facility] [address] [place] [address] Dr. Hermes Cobb MCV (RBC) [Entitic vol] 95.4 fL Normal 81.0-99.0 [facility] Comment on above: Performed By: #### Belén ERWIN ICRO #### [facility] [address] [place] [address] Dr. Hermes Cobb MONO # 0.4 103/ul Normal 0.3-0.8 [facility] Comment on above: Performed By: #### Belén ERWIN UMICRO #### [facility] [address] [place] [address] Dr. Hermes Cobb Monocytes/100 WBC (Bld) 8.9 % Normal 1.7-12.0 [facility] Comment on above: Performed By: #### U YAIMA UMICRO #### [facility] [address] [place] [address] Dr. Hermes Cobb NEUT # 3.1 103/ul Normal 1.4-6.5 [facility] Comment on above: Performed By: #### U YAIMA UMICRO #### [facility] [address] [place] [address] Dr. Hermes Cobb Neutrophils/100 WBC (Bld) 68.0 % Normal 43.0-75.0 [facility] Comment on above: Performed By: #### U YAIMA UMICRO #### [facility] [address] [place] [address] Dr. Hermes Cobb Platelet mean volume (Bld) [Entitic vol] 10.3 fL Normal 9.5-13.5 [facility] Comment on above: Performed By: #### U ACSKATHRINE, UMICRO #### [facility] [address] [place] [address] Dr. Hermes Cobb PLT 251 103/ul Normal 150-450 [facility] Comment on above: Performed By: #### U ACSKATHRINE, ICRO #### [facility] [address] [place] [address] Dr. Hermes Cobb RBC 4.36 106/ul Normal 4.20-5.40 [facility] Comment on above: Performed By: #### U ACSKATHRINE, ICRO #### [facility] [address] [place] [address] Dr. Hermes Cobb WBC 4.6 103/ul Normal 4.0-11.0 [facility] Comment on above: Performed By: #### U ACSKATHRINE ICRO #### [facility] [address] [place] [address] Dr. Hermes Cobb FERRITINon 04-07-2022 Ferritin [Mass/Vol] 168.0 ng/mL Normal 8.0-252.0 [facility] Comment on above: Performed By: #### U ACSKATHRINE, ICRO #### [facility] [address] [place] [address] Dr. Hermes Cobb PROF CHEM 8 (BAS METB)on Anion gap [Moles/Vol] 12.8 mmol/L Normal [facility] Comment on above: Performed By: #### B MP #### [facility] [address] [place] [address] Dr. Hermes Cobb Calcium [Mass/Vol] 9.0 mg/dL Normal 8.5-10.1 [facility] Comment on above: Performed By: #### B MP #### [facility] [address] [place] [address] Dr. Hermes Cobb Chloride [Moles/Vol] 101 mmol/L Normal 98-107 [facility] Comment on above: Performed By: #### B MP #### [facility] [address] [place] [address] [address] Hermes Cobb CO2 [Moles/Vol] 28.2 mmol/L Normal 21.0-32.0 [facility] Comment on above: Performed By: #### B MP #### [facility] [address] [place] [address] [address] Hermes Cobb Creatinine [Mass/Vol] 0.97 mg/dL Normal 0.55-1.02 [facility] Comment on above: Performed By: #### B MP #### [facility] [address] [place] [address] [address] Hermes Cobb EGFR-AF CITIZEN [place] >60 Normal >=60 [facility] Comment on above: Performed By: #### B MP #### [facility] [address] [place] [address] [address] Hermes Cobb EGFR-NON AF CITIZEN OF [place] 56 mL/min/1.73m2 Critically low >=60 [facility] Comment on above: Performed By: #### B MP #### [facility] [address] [place] [address] [address] Hermes Cobb Glucose [Mass/Vol] 188 mg/dL Critically high 74-106 [facility] Comment on above: Performed By: #### B MP #### [facility] [address] [place] [address] [address] Hermes Cobb Potassium [Moles/Vol] 4.0 mmol/L Normal 3.5-5.1 [facility] Comment on above: Performed By: #### B MP #### [facility] [address] [place] [address] [address] Hermes Cobb Sodium [Moles/Vol] 138 mmol/L Normal 136-145 [facility] Comment on above: Performed By: #### B MP #### [facility] [address] [place] [address] [address] Hermes Cobb Urea nitrogen [Mass/Vol] 12.0 mg/dL Normal 7.0-18.0 [facility] Comment on above: Performed By: #### B MP #### [facility] [address] [place] [address] [address] Hermes Cobb Urea nitrogen/Creatinine [Mass ratio] 12.4 mg/mg Normal [facility] Comment on above: Performed By: #### B MP #### [facility] [address] [place] [address] [address] Hermes Cobb PROF CHEM 8 (BAS METB)on Anion gap [Moles/Vol] 11.8 mmol/L Normal [facility] Comment on above: Performed By: #### C BC #### [facility] [address] [place] [address] Dr. Hermes Cobb Calcium [Mass/Vol] 8.8 mg/dL Normal 8.5-10.1 [facility] Comment on above: Performed By: #### C BC #### [facility] [address] [place] [address] Dr. Hermes Cobb Chloride [Moles/Vol] 96 mmol/L Critically low 98-107 [facility] Comment on above: Performed By: #### C BC #### [facility] [address] [place] [address] Dr. Hermes Cobb CO2 [Moles/Vol] 28.9 mmol/L Normal 21.0-32.0 [facility] Comment on above: Performed By: #### C BC #### [facility] [address] [place] [address] [address] Hermes Cobb Creatinine [Mass/Vol] 1.08 mg/dL Critically high 0.55-1.02 [facility] Comment on above: Performed By: #### C BC #### [facility] [address] [place] [address] [address] Hermes Cobb EGFR-AF CITIZ[place] 60 mL/min/1.73m2 Normal >=60 [facility] Comment on above: Performed By: #### C BC #### [facility] [address] [place] [address] [address] Hermes Cobb EGFR-NON AF CITIZEN [place] 50 mL/min/1.73m2 Critically low >=60 [facility] Comment on above: Performed By: #### C BC #### [facility] [address] [place] [address] [address] Hermes Cobb Glucose [Mass/Vol] 244 mg/dL Critically high 74-106 [facility] Comment on above: Performed By: #### C BC #### [facility] [address] [place] [address] [address] Hermes Cobb Potassium [Moles/Vol] 4.7 mmol/L Normal 3.5-5.1 [facility] Comment on above: Performed By: #### C BC #### [facility] [address] [place] [address] [address] Hermes Cobb Sodium [Moles/Vol] 132 mmol/L Critically low 136-145 [facility] Comment on above: Performed By: #### C BC #### [facility] [address] [place] [address] Dr. Hermes Cobb Urea nitrogen [Mass/Vol] 17.0 mg/dL Normal 7.0-18.0 [facility] Comment on above: Performed By: #### C BC #### [facility] [address] [place] [address] Dr. Hermes Cobb Urea nitrogen/Creatinine [Mass ratio] 15.7 mg/mg Normal [facility] Comment on above: Performed By: #### C BC #### [facility] [address] [place] [address] Dr. Hermes Cobb OSMOLALITYon 03-26-2022 Osmolality [Osmolality] 255 mosm/kg Critically low 280-301 [facility] Comment on above: Performed By: #### O SMO #### [facility] [address] [place] [address] [address] Hermes Cobb OSMOLALITY URINEon Osmolality, Urine 365 mOsmol/kg Normal [facility] Comment on above: Result Comment: 24 h r : 300 - 900 Random: 50 - 1400 After 12hr fluid restriction: >850 Performed By: #### O SMOU #### [facility] [address] [place] [address] Dr. Hermes Cobb FREE T4on 03-24-2022 Free T4 [Mass/Vol] 1.19 ng/dL Normal 0.76-1.46 [facility] Comment on above: Performed By: #### U ACSINDKARINRO #### [facility] [address] [place] [address] [address] Hermes Cobb PROF CHEM 8 (BAS METB)on Anion gap [Moles/Vol] 14.0 mmol/L Normal [facility] Comment on above: Performed By: #### B MP, TSH #### [facility] [address] [place] [address] [address] Hermes Cobb Calcium [Mass/Vol] 8.5 mg/dL Normal 8.5-10.1 [facility] Comment on above: Performed By: #### B MP, TSH #### [facility] [address] [place] [address] [address] Hermes Cobb Chloride [Moles/Vol] 88 mmol/L Critically low 98-107 [facility] Comment on above: Performed By: #### B MP, TSH #### [facility] [address] [place] [address] [address] Hermes Cobb CO2 [Moles/Vol] 26.1 mmol/L Normal 21.0-32.0 [facility] Comment on above: Performed By: #### B MP, TSH #### [facility] [address] [place] [address] [address] Hermes Cobb Creatinine [Mass/Vol] 1.03 mg/dL Critically high 0.55-1.02 [facility] Comment on above: Performed By: #### B MP, TSH #### [facility] [address] [place] [address] [address] Hermes Cobb EGFR-AF [place]IZ[place] >60 Normal >=60 [facility] Comment on above: Performed By: #### B MP, TSH #### [facility] [address] [place] [address] [address] Hermes Cobb EGFR-NON AF [place]IZ[place] 53 mL/min/1.73m2 Critically low >=60 [facility] Comment on above: Performed By: #### B MP, TSH #### [facility] [address] [place] [address] [address] Hermes Cobb Glucose [Mass/Vol] 139 mg/dL Critically high 74-106 [facility] Comment on above: Performed By: #### B MP, TSH #### [facility] [address] [place] [address] Dr. Hermes Cobb Potassium [Moles/Vol] 4.1 mmol/L Normal 3.5-5.1 [facility] Comment on above: Performed By: #### B MP, TSH #### [facility] [address] [place] [address] Dr. Hermes Cobb Sodium [Moles/Vol] 122 mmol/L Critically low 136-145 [facility] Comment on above: Performed By: #### B MP, TSH #### [facility] [address] [place] [address] Dr. Hermes Cobb Urea nitrogen [Mass/Vol] 14.0 mg/dL Normal 7.0-18.0 [facility] Comment on above: Performed By: #### B MP, TSH #### [facility] [address] [place] [address] Dr. Hermes Cobb Urea nitrogen/Creatinine [Mass ratio] 13.6 mg/mg Normal [facility] Comment on above: Performed By: #### B MP, TSH #### [facility] [address] [place] [address] Dr. Hermes Cobb SODIUM RANDOM URINEon 2021 Sodium (U) [Moles/Vol] 22 mmol/L Critically low 30-90 [facility] Comment on above: Performed By: #### U ACSIND, UMICRO #### [facility] [address] [place] [address] Dr. Hermes Cobb TSHon 03-24-2022 TSH 1.991 uIU/mL Normal 0.358-3.740 [facility] Comment on above: Performed By: #### B MP, TSH #### [facility] [address] [place] [address] Dr. Hermes Cobb TSH RANGE SEE BELOW Normal [facility] Comment on above: Result Comment: <0.3 4 UIU/ml HYPERTHYROID 0.34-5.60 UIU/ml EUTHYROID >5.60 UIU/ml HYPOTHYROID Performed By: #### B MP, TSH #### [facility] [address] [place] [address] Dr. Hermes Cobb CBC AUTO DIFFon 03-23-2022 BASO # 0.0 103/ul Normal 0.0-0.1 [facility] Comment on above: Performed By: #### C BC #### [facility] [address] [place] [address] Dr. Hermes Cobb Basophils/100 WBC (Bld) 0.4 % Normal 0.2-2.0 [facility] Comment on above: Performed By: #### C BC #### [facility] [address] [place] [address] Dr. Hermes Cobb EO # 0.0 103/ul Normal 0.0-0.7 [facility] Comment on above: Performed By: #### C BC #### [facility] [address] [place] [address] Dr. Hermes Cobb Eosinophils/100 WBC (Bld) 0.2 % Critically low 0.9-7.0 [facility] Comment on above: Performed By: #### C BC #### [facility] [address] [place] [address] Dr. Hermes Cobb Erythrocyte distribution width (RBC) [Ratio] 12.0 % Normal 11.0-15.0 [facility] Comment on above: Performed By: #### C BC #### [facility] [address] [place] [address] Dr. Hermes Cobb Hematocrit (Bld) [Volume fraction] 38.0 % Normal 36.0-48.0 [facility] Comment on above: Performed By: #### C BC #### [facility] [address] [place] [address] Dr. Hermes Cobb Hemoglobin (Bld) [Mass/Vol] 13.5 g/dL Normal 12.0-16.0 [facility] Comment on above: Performed By: #### C BC #### [facility] [address] [place] [address] Dr. Hermes Cobb IG # 0.01 10e3/ul Normal 0.00-0.03 [facility] Comment on above: Performed By: #### C BC #### [facility] [address] [place] [address] Dr. Hermes Cobb IG % 0.2 % Normal 0.0-0.5 [facility] Comment on above: Performed By: #### C BC #### [facility] [address] [place] [address] Dr. Hermes Cobb LYMPH # 1.4 103/ul Normal 1.2-3.8 [facility] Comment on above: Performed By: #### C BC #### [facility] [address] [place] [address] Dr. Hermes Cobb Lymphocytes/100 WBC (Bld) 27.9 % Normal 20.5-60.0 [facility] Comment on above: Performed By: #### C BC #### [facility] [address] [place] [address] Dr. Hermes Cobb MANUAL DIFF REQ NO Normal [facility] Comment on above: Performed By: #### C BC #### [facility] [address] [place] [address] Dr. Hermes Cobb MCH (RBC) [Entitic mass] 31.8 pg Normal 26.7-34.0 [facility] Comment on above: Performed By: #### C BC #### [facility] [address] [place] [address] Dr. Hermes Cobb MCHC (RBC) [Mass/Vol] 35.5 g/dL Critically high 29.9-35.2 [facility] Comment on above: Performed By: #### C BC #### [facility] [address] [place] [address] Dr. Hermes Cobb MCV (RBC) [Entitic vol] 89.6 fL Normal 81.0-99.0 [facility] Comment on above: Performed By: #### C BC #### [facility] [address] [place] [address] Dr. Hermes Cobb MONO # 0.5 103/ul Normal 0.3-0.8 [facility] Comment on above: Performed By: #### C BC #### [facility] [address] [place] [address] Dr. Hermes Cobb Monocytes/100 WBC (Bld) 10.1 % Normal 1.7-12.0 [facility] Comment on above: Performed By: #### C BC #### [facility] [address] [place] [address] Dr. Hermes Cobb NEUT # 3.0 103/ul Normal 1.4-6.5 [facility] Comment on above: Performed By: #### C BC #### [facility] [address] [place] [address] Dr. Hermes Cobb Neutrophils/100 WBC (Bld) 61.2 % Normal 43.0-75.0 [facility] Comment on above: Performed By: #### C BC #### [facility] [address] [place] [address] Dr. Hermes Cobb Platelet mean volume (Bld) [Entitic vol] 10.6 fL Normal 9.5-13.5 [facility] Comment on above: Performed By: #### C BC #### [facility] [address] [place] [address] Dr. Hermes Cobb PLT 256 103/ul Normal 150-450 [facility] Comment on above: Performed By: #### C BC #### [facility] [address] [place] [address] Dr. Hermes Cobb RBC 4.24 106/ul Normal 4.20-5.40 [facility] Comment on above: Performed By: #### C BC #### [facility] [address] [place] [address] Dr. Hermes Cobb WBC 4.9 103/ul Normal 4.0-11.0 [facility] Comment on above: Performed By: #### C BC #### [facility] [address] [place] [address] Dr. Hermes Cobb PROF 14(COMP METB)on 022 Albumin [Mass/Vol] 4.5 g/dL Normal 3.4-5.0 [facility] Comment on above: Performed By: #### C MP #### [facility] [address] [place] [address] Dr. Hermes Cobb Albumin/Globulin [Mass ratio] 1.3 {ratio} Normal [facility] Comment on above: Performed By: #### C MP #### [facility] [address] [place] [address] Dr. Hermes Cobb ALP [Catalytic activity/Vol] 72 U/L Normal 46-116 [facility] Comment on above: Performed By: #### C MP #### [facility] [address] [place] [address] Dr. Hermes Cobb ALT [Catalytic activity/Vol] 35 U/L Normal 14-59 [facility] Comment on above: Performed By: #### C MP #### [facility] [address] [place] [address] Dr. Hermes Cobb Anion gap [Moles/Vol] 15.0 mmol/L Normal [facility] Comment on above: Performed By: #### C MP #### [facility] [address] [place] [address] Dr. Hermes Cobb AST [Catalytic activity/Vol] 29 U/L Normal 15-37 [facility] Comment on above: Performed By: #### C MP #### [facility] [address] [place] [address] Dr. Hermes Cobb Bilirubin [Mass/Vol] 1.0 mg/dL Normal 0.2-1.0 [facility] Comment on above: Performed By: #### C MP #### [facility] [address] [place] [address] Dr. Hermes Cobb Calcium [Mass/Vol] 8.6 mg/dL Normal 8.5-10.1 [facility] Comment on above: Performed By: #### C MP #### [facility] [address] [place] [address] Dr. Hermes Cobb Chloride [Moles/Vol] 83 mmol/L Critically low 98-107 [facility] Comment on above: Result Comment: test repeated critical value verified Performed By: #### C MP #### [facility] [address] [address] [address] Hermes Cobb CO2 [Moles/Vol] 24.8 mmol/L Normal 21.0-32.0 [facility] Comment on above: Performed By: #### C MP #### [facility] [address] [address] [address] Hermes Cobb Creatinine [Mass/Vol] 0.83 mg/dL Normal 0.55-1.02 [facility] Comment on above: Performed By: #### C MP #### [facility] [address] [place] [address] Dr. Hermes Cobb EGFR-AF CITIZ[place] OF [place] >60 Normal >=60 [facility] Comment on above: Performed By: #### C MP #### [facility] [address] [place] [address] Dr. Hermes Cobb EGFR-NON AF [place]IZ[place] OF [place] >60 Normal >=60 [facility] Comment on above: Performed By: #### C MP #### [facility] [address] [place] [address] Dr. Hermes Cobb Globulin (S) [Mass/Vol] 3.4 g/dL Normal [facility] Comment on above: Performed By: #### C MP #### [facility] [address] [place] [address] Dr. Hermes Cobb Glucose [Mass/Vol] 129 mg/dL Critically high 74-106 [facility] Comment on above: Performed By: #### C MP #### [facility] [address] [place] [address] Dr. Hermes Cobb Potassium [Moles/Vol] 3.8 mmol/L Normal 3.5-5.1 [facility] Comment on above: Performed By: #### C MP #### [facility] [address] [place] [address] Dr. Hermes Cobb Protein [Mass/Vol] 7.9 g/dL Normal 6.4-8.2 [facility] Comment on above: Performed By: #### C MP #### [facility] [address] [address] [address] Hermes Cobb Sodium [Moles/Vol] 119 mmol/L Critically low 136-145 [facility] Comment on above: Result Comment: test repeated critical value verified Performed By: #### C MP #### [facility] [address] [address] [address] Hermes Cobb Urea nitrogen [Mass/Vol] 12.0 mg/dL Normal 7.0-18.0 [facility] Comment on above: Performed By: #### C MP #### [facility] [address] [place] [address] Dr. Hermes Cobb Urea nitrogen/Creatinine [Mass ratio] 14.5 mg/mg Normal [facility] Comment on above: Performed By: #### C MP #### [facility] [address] [place] [address] Dr. Hermes Cobb UA (CLEAN/CATCH) DIGITAL CONTENT PRODUCER/MICRO I F IND.on 03-23-2022 Bilirubin Ql (U) Negative Normal NEGATIVE [facility] Comment on above: Performed By: #### U ACSKATHRINE, UMICRO #### [facility] [address] [place] [address] Dr. Hermes Cobb Clarity (U) SL CLOUDY Abnormal CLEAR [facility] Comment on above: Performed By: #### U ACSIND, UMICRO #### [facility] [address] [place] [address] Dr. Hermes Cbob Color (U) YELLOW Normal YELLOW [facility] Comment on above: Performed By: #### U ACSIND, UMICRO #### [facility] [address] [place] [address] Dr. Hermes Cobb Glucose Ql (U) Negative Normal NEGATIVE [facility] Comment on above: Performed By: #### U ACSIND, UMICRO #### [facility] [address] [place] [address] Dr. Hermes Cobb Hemoglobin Ql (U) SMALL Abnormal NEGATIVE [facility] Comment on above: Performed By: #### U ACSIND, UMICRO #### [facility] [address] [address] [address] Hermes Cobb Ketones Ql (U) 40 mg/dl Abnormal NEGATIVE [facility] Comment on above: Performed By: #### U ACSKATHRINE, UMICRO #### [facility] [address] [address] [address] Hermes Cobb LEUKOCYTES Negative Normal NEGATIVE [facility] Comment on above: Performed By: #### U ACSKATHRINE UMICRO #### [facility] [address] [address] [address] Hermes Cobb Nitrite Ql (U) Negative Normal NEGATIVE [facility] Comment on above: Performed By: #### U ACSKATHRINE UMICRO #### [facility] [address] [place] [address] Dr. Hermes Cobb pH (U) 6.0 [pH] Normal 5-9 [facility] Comment on above: Performed By: #### U ACSKATHRINE UMICRO #### [facility] [address] [place] [address] Dr. Hermes Cobb SPEC GRAVITY 1.015 Normal 1.005-<=1.025 [facility] Comment on above: Performed By: #### U ACSKATHRINE UMICRO #### [facility] [address] [place] [address] Dr. Hermes Cobb UA PROTEIN Negative Normal NEGATIVE/ TRACE [facility] Comment on above: Performed By: #### U YAIMA UMICRO #### [facility] [address] [address] [address] Hermes Cobb UR MICRO IND MICROSCOPIC ALREADY ORDERED Normal [facility] Comment on above: Performed By: #### U ACSKATHRINE UMICRO #### [facility] [address] [place] [address] Dr. Hermes Cobb Urobilinogen Qn (U) 2.0 {Josiane'U}/dL Abnormal 0.2 - 1. 0 [facility] Comment on above: Performed By: #### U ACSKATHRINE UMICRO #### [facility] [address] [place] [address] Dr. Hermes Cobb URINE MICROSCOPIC ONLYon BACTERIA TRACE Abnormal NONE SEEN [facility] Comment on above: Performed By: #### U ACSIND, UMICRO #### [facility] [address] [place] [address] Dr. Hermes Cobb Bacteria identified Cx Nom (U) NOT INDICATED Normal [facility] Comment on above: Performed By: #### U ACSIND, UMICRO #### [facility] [address] [place] [address] Dr. Hermes Cobb CAST NONE SEEN Normal NONE SEEN [facility] Comment on above: Performed By: #### U ACSIND, UMICRO #### [facility] [address] [place] [address] Dr. Hermes Cobb Crystals LM Nom (Urine sed) NONE SEEN Normal NONE SEEN [facility] Comment on above: Performed By: #### U ACSIND, UMICRO #### [facility] [address] [place] [address] Dr. Hermes Cobb Epithelial cells LM Ql (Urine sed) FEW Abnormal NONE SEEN /RARE [facility] Comment on above: Performed By: #### U ACSKATHRINE, UMICRO #### [facility] [address] [place] [address] Dr. Hermes Cobb MUCOUS TRACE Abnormal NONE SEEN [facility] Comment on above: Performed By: #### U ACSKATHRINE, UMICRO #### [facility] [address] [place] [address] Dr. Hermes Cobb RBC 0-2 Normal 0-2 [facility] Comment on above: Performed By: #### U ACSIND, UMICRO #### [facility] [address] [place] [address] Dr. Hermes Cobb WBC NONE SEEN Normal NONE SEEN [facility] Comment on above: Performed By: #### U ACSIND, UMICRO #### [facility] [address] [place] [address] Dr. Hermes Cobb XR CHEST 2 Von [...] by: ANGELICA JOSEPH Date: 2022-03-23 18:06 Normal [facility] DIGITAL MAMMOGRAM SCREENING BILATERALon 12-28-2021 DIGITAL MAMMOGRAM SCREENING BILATERAL [facility] Department of Radiology [address] [place] [id number] ===== Patient Name: ANN JIMÉNEZ : 1950 Sex: F Age: Race: White Pt. Location: 29 Patient Status: D Ordered Date: 12/28/2021 5:00:00 AM Completed Date: 12/28/2021 10:09 AM Requesting Provider: BEULAH MCKNIGHT Attending Provider: Report Copy To: Signs & Symptoms: Z12.31 Encntr screen mammogram for malignant neoplasm of breast I10 History: Sandhya Comments: , Appointment Date: 12/28/2021 , Additional [...] Continued bilateral annual mammogram evaluation. Electronically signed: Garland Coronel. Transcribed by: [email or web address], User Resident: Electronically Signed by: GARLAND CORONEL @ 01/02/2022 06:16 PM Normal The [facility] Comment on above: Order Comment: , Zeus ointment Date: 12/28/2021 , Additional imaging, if necessary?: Y , Appointment Date: 12/28/2021 , Additional imaging, if necessary?: Y , , , Ordering Provider - BEULAH MCKNIGHT MD , Coding Summary.on 01-01-2021 Coding Summary. CODING DATE: [address] [facility] STATUS: PAYOR: Medicare ADMIT DX: REASON FOR [...] Delgado Date Saved: 01/01/2021 11:26 am Normal [facility] Consent for COVID Vaccineon 12-31-2020 SARS-CoV-2 (COVID-19) RNA ROEL+probe Ql (Unsp spec) [id number] D:127 [facility] Consent for Treatmenton 12-22 Consent for Treatment [id number] D:127 Normal [facility] Vital Signs Date Time Vital Sign Value Performing Clinician Facility 07-15-2025 09:18-0400 Body height 167.64 cm Jess Flood MD Work Phone: [facility] 07-15-2025 09:18-0400 Body mass index (BMI) [Ratio] 28.5 kg/m2 Jess Flood MD Work Phone: [facility] 07-15-2025 09:18-0400 Body weight 80.28 kg Jess Flood MD Work Phone: [facility] 07-15-2025 09:18-0400 Diastolic blood pressure 71 mm[Hg] Jess Flood MD Work Phone: [facility] 07-15-2025 09:18-0400 Heart rate 46 /min Jess Flood MD Work Phone: [facility] 07-15-2025 09:18-0400 Systolic blood pressure 149 mm[Hg] Jess Flood MD Work Phone: [facility] 01-31-2025 15:37-0400 Body height 167.64 cm [facility] 01-31-2025 15:37-0400 Body mass index (BMI) [Ratio] 28.5 kg/m2 [facility] 01-31-2025 15:37-0400 Body weight 80.28 kg [facility] 01-31-2025 15:37-0400 Diastolic blood pressure 78 mm[Hg] [facility] 01-31-2025 15:37-0400 Heart rate 59 /min [facility] 01-31-2025 15:37-0400 Systolic blood pressure 189 mm[Hg] [facility] 06-27-2024 10:06-0400 Diastolic blood pressure 92 mm[Hg] MD Jess Flood Work Phone: [facility] 06-27-2024 10:06-0400 Heart rate 48 /min MD Jess Flood Work Phone: [facility] 06-27-2024 10:06-0400 Systolic blood pressure 202 mm[Hg] MD Jess Flood Work Phone: [facility] 06-14-2024 14:19-0400 Body height 167.64 cm MD Jess Flood Work Phone: [facility] 06-14-2024 14:19-0400 Body mass index (BMI) [Ratio] 28.5 kg/m2 MD Jess Flood Work Phone: [facility] 06-14-2024 14:19-0400 Body weight 80.28 kg MD Jess Flood Work Phone: [facility] 06-14-2024 14:19-0400 Diastolic blood pressure 80 mm[Hg] MD Jess Flood Work Phone: [facility] 06-14-2024 14:19-0400 Heart rate 62 /min MD Jess Flood Work Phone: [facility] 06-14-2024 14:19-0400 Respiratory rate 18 /min MD Jess Flood Work Phone: [facility] 06-14-2024 14:19-0400 SaO2% (BldA) [Mass fraction] 99 % MD Jess Flood Work Phone: [facility] 06-14-2024 14:19-0400 Systolic blood pressure 162 mm[Hg] MD Jess Flood Work Phone: [facility] 05-01-2024 10:12-0400 Body height 167.64 cm [facility] 05-01-2024 10:12-0400 Body mass index (BMI) [Ratio] 28.5 kg/m2 [facility] 05-01-2024 10:12-0400 Body weight 80.28 kg [facility] 05-01-2024 10:12-0400 Diastolic blood pressure 62 mm[Hg] [facility] 05-01-2024 10:12-0400 Heart rate 68 /min [facility] 05-01-2024 10:12-0400 SaO2% (BldA) [Mass fraction] 97 % [facility] 05-01-2024 10:12-0400 Systolic blood pressure 160 mm[Hg] [facility] 01-10-2024 08:47-0400 Body height 167.64 cm [facility] 01-10-2024 08:47-0400 Body mass index (BMI) [Ratio] 28.8 kg/m2 [facility] 01-10-2024 08:47-0400 Body weight 80.9 kg [facility] 01-10-2024 08:47-0400 Diastolic blood pressure 74 mm[Hg] [facility] 01-10-2024 08:47-0400 Heart rate 73 /min [facility] 01-10-2024 08:47-0400 Systolic blood pressure 145 mm[Hg] [facility] 07-11-2023 08:30-0400 Body height 167.64 cm Jess Flood Other [facility] Other 07-11-2023 08:30-0400 Body mass index (BMI) [Ratio] 28.86 kg/m2 Jess Flood Other [facility] Other 07-11-2023 08:30-0400 Body weight 81.1 kg Jess Flood Other [facility] [employer] Other 07-11-2023 08:30-0400 Diastolic blood pressure 69 mm[Hg] Jess Flood Other [facility] [employer] Other 07-11-2023 08:30-0400 Systolic blood pressure 153 mm[Hg] Jess Flood Other [facility] [employer] Other Encounters Encounter Date Encounter Type Care Provider Facility Start: 07-15-2025 End: 07-15-2025 ambulatory Jess Flood MD Work Phone: [facility] Work Phone: Start: 07-15-2025 End: 07-15-2025 Patient encounter procedure Jess Flood MD -[facility] Work Phone: Start: 01-31-2025 End: 01-31-2025 ambulatory [facility] Work Phone: Start: 01-31-2025 End: 01-31-2025 Patient encounter procedure [facility] Work Phone: Start: 01-25-2025 End: 01-25-2025 ambulatory CYNDI COUGHLIN [facility] Start: 01-07-2025 End: 01-07-2025 ambulatory CYNDI COUGHLIN [facility] Start: 07-12-2024 Patient encounter procedure [facility] Start: 06-27-2024 End: 06-27-2024 Patient encounter procedure MD Jess Flood Work Phone: [facility] Work Phone: Start: 06-27-2024 End: 06-27-2024 ambulatory MD Jess Flood Work Phone: [facility] Work Phone: Start: 06-14-2024 End: 06-14-2024 ambulatory MD Jess Flood Work Phone: [facility] Work Phone: Start: 06-14-2024 End: 06-14-2024 Patient encounter procedure MD Jess Flood Work Phone: [facility] Work Phone: Start: 05-01-2024 End: 05-01-2024 ambulatory [facility] Work Phone: Start: 05-01-2024 End: 05-01-2024 Patient encounter procedure [facility] Work Phone: Start: 05-01-2024 Non-patient / Non-visit MD Anu Flood Work Phone: [facility] Work Phone: Start: 05-01-2024 Non-patient / Non-visit [facility] Physician [facility] Work Phone: Start: 01-10-2024 End: 01-10-2024 ambulatory [facility] Work Phone: Start: 01-10-2024 End: 01-10-2024 Patient encounter procedure [facility] Work Phone: Start: 08-19-2023 End: 08-19-2023 ambulatory Jess Flood Other [facility] Other Start: 08-19-2023 Nursing evaluation o f patient and report Jess Flood [facility] Start: 07-13-2023 End: 07-13-2023 ambulatory Jess Flood Other [facility] Other Start: 07-13-2023 Telephone encounter Jess Flood [facility] Start: 07-11-2023 End: 07-11-2023 ambulatory Jess Flood Other [facility] Other Start: 07-11-2023 Patient encounter procedure Jess Flood [facility] Start: 02-16-2023 End: 02-17-[address] JESS FLOOD Facility:[facility] Start: 07-13-2022 Encounter for genera l adult medical examination without abnormal findings DR JESS FLOOD [facility] Start: 07-12-2022 End: 07-13-[address] JESS [...] Date Care Activity Detail Author Start: 06-14-2024 [facility] Start: 05-01-2024 Patient referral [facility] Work Phone: Comprehensive metabo lic 2000 panel - Serum or Plasma [facility] EKG 12 channel panel [facility] Holter monitor study [facility] Patient referral [facility] Work Phone: US Heart [facility]sthoracic [facility] Immunizations Immunization Date Immunization Notes Care Provider Fa cility 08-23-2024 influenza, high dose seasonal, preservative-free [facility] 08-19-2023 influenza virus vaccine, unspecified formulation [facility] 08-19-2023 influenza, high dose seasonal, preservative-free Jess Flood Other [facility] Other 09-03-2022 COVID-19 Pfizer (Pediatric) Jess Flood Other [facility] 08-23-2022 influenza virus vaccine, split virus (incl. purified surface antigen) Jess Flood Other [facility] Other 08-23-2022 influenza virus vaccine, unspecified formulation [facility] 08-10-2021 influenza virus vaccine, split virus (incl. purified surface antigen) Jess Flood Other [facility] Other 08-10-2021 influenza virus vaccine, unspecified formulation [facility] 08-18-2020 influenza virus vaccine, split virus (incl. purified surface antigen) Jess Flood Other [facility] Other 08-18-2020 influenza virus vaccine, unspecified formulation [facility] 08-16-2019 influenza virus vaccine, split virus (incl. purified surface antigen) Jess Flood Other [facility] Other 08-16-2019 influenza virus vaccine, unspecified formulation [facility] 08-15-2018 influenza virus vaccine, split virus (incl. purified surface antigen) Jess Flood Other [facility] Other 08-15-2018 influenza virus vaccine, unspecified formulation [facility] 09-08-2017 influenza virus vaccine, split virus (incl. purified surface antigen) Jess Flood Other [facility] Other 09-08-2017 influenza virus vaccine, unspecified formulation [facility] 08-19-2016 pneumococcal conjuga te vaccine, 13 valent Jess Flood Other [facility] 08-16-2016 influenza virus vaccine, split virus (incl. purified surface antigen) Jess Flood Other [facility] Other 08-16-2016 influenza virus vaccine, unspecified formulation [facility] 08-12-2015 tetanus and diphther ia toxoids, adsorbed, preservative free, for adult use (5 Lf of tetanus toxoid and 2 Lf of diphtheria toxoid) Jess Flood Other [facility] 08-12-2015 tetanus toxoid, redu promise diphtheria toxoid, and acellular pertussis vaccine, adsorbed Jess Flood Other [facility] Other 09-30-2014 pneumococcal polysaccharide vaccine, 23 valent Jess Flood Other [facility] 08-16-2013 tetanus and diphther ia toxoids, adsorbed, preservative free, for adult use (5 Lf of tetanus toxoid and 2 Lf of diphtheria toxoid) Jess Flood Other [facility] Payers Date Payer Category Payer Self-pay 1960 Medicare [id number] 1959 Private Health Insurance [id number] 1950 Unknown [id number] [id number] [id number] 1950 Unknown [id number] 2.16.84 [id number] 1950 Unknown [id number] 2.16.84 [id number] 1950 Unknown [id number] 2.16.84 [id number] 1950 Unknown [id number] 2.16.84 [id number] 1950 Unknown [id number] 2.16.84 [id number] 1950 Unknown [id number] 2.16.84 [id number] Medicare Medicare unknown [id number] Medicare [id number] Unknown [id number] 2.16.8 [id number] Unknown [id number] 2.16.8 [id number] Social History Date Type Detail Facility Unknown if ever smoked [facility] [employer] Other Sex Assigned At Sex Assigned At Bir th [facility] [employer] Other Start: 01-10-2024 End: 06-14-2024 Tobacco smoking status NHIS Never smoked tobacco (finding) [facility] Start: 1950 Sex Assigned At Female F [facility] Start: 01-31-2025 Sex Female (finding) [facility] Medical Equipment Procedure Code Equipment Code Equipment Origin al Text Equipment Identifier Dates OneTouch Delica Lancets [id number] Start: 10-07-2021 Blood Sugar Diagnostic (Onetouch Ultra Test) strip Start: 01-10-2024 Lancets (Onetouc h Delica Plus Lancet) 33 gauge mis Start: 01-10-2024 Blood Sugar Diagnostic (Onetouch Ultra [...] Sugar Diagnostic (Onetouch Ultra Test) strip Start: 06-26-2025 Lancets (Onetouc h Delica Plus Lancet) 33 gauge misc Start: 07-15-2025 Blood Sugar Diagnostic (Onetouch Ultra Test) strip Start: 01-10-2024 End: 06-26-2025 Lancets (Onetouc h Delica Plus Lancet) 33 gauge misc Start: 01-10-2024 End: 07-15-2025 Clinical Notes 02-16-2023 to 01-25-2025 Note Date & Type Note Facility [...] past 36 hour(s)). No follow-ups on file. [facility] 07-13-2023 Evaluation note Encounter Date Diagnosis Assessment Notes Jun, Controlled type 2 diabetes mellitus with hyperglycemia (ICD-10 - E11.65) [facility] Other 09-18-2023 Evaluation note* Encounter Date Diagnosis Assessment Notes Treatment Notes Treatment Clinical Notes Jun, Medicare annual wellness visit, subsequent [...] 2-3x/week. Monitor. continue healthy diet and exercise. [facility] Other 04-26-2023 NotePROCEDURE: XR FOOT RT MIN 3 VIEWS HISTORY: Pain in right foot ; first toe and dorsal foot pain after falling COMPARISON: None. FINDINGS: BONES:No fracture, acute abnormality, or significant arthropathy. SOFT TISSUES:No visible soft tissue swelling. EFFUSION:None visible. OTHER: Negative. IMPRESSION: 1. No acute bone abnormality. 2. Mild degenerative changes. Electronically authenticated by: ERICH RUGGIERO Date: 2023-02-16 10:56[facility] note[facility] InformationNort [employer] Other Evaluation note* Diagnosis Onset Date Resolution Status Acquired hypothyroidism acut e Controlled type 2 diabetes mellitus with hyperglycemia acute Essential (primary) hypertension [facility] Work Phone: Evaluation note* Diagnosis Onset Date Resolution Status Acquired hypothyroidism acut e Anxiety acute Essential (primary) hypertension acute Palpitations acute [facility] Work Phone: Evaluation note* Diagnosis Onset Date Resolution Status Acquired hypothyroidism acut e Anxiety acute Essential (primary) hypertension acute Palpitations acute Acquired hypothyroidism acut e Controlled type 2 diabetes mellitus with hyperglycemia acute Essential (primary) hypertension acute Palpitations acute [facility] Work Phone: Evaluation note* Diagnosis Onset Date Resolution Status Admit Date Palpitations acute January 31, 2025 3:18pm [facility] Work Phone: Evaluation note* Diagnosis Onset Date Resolution Status Admit Date Acquired hypothyroidism acute S ep2024 9:15am Anxiety acute June 9:15am Controlled type 2 diabetes mellitus with hyperglycemia acute Jun 9:15am Essential (primary) hypertension acute July 15, 2025 9:15am Medicare annual wellness vis it, subsequent acute July 15, 2025 9:15am [facility] Work Phone: History general Narrative - Reported* Type Description Date Medical History Controlled type 2 diabetes melli tus with hyperglycemia Medical History Essential (primary) hypertension [...] Surgical History Colonscopy 2008 Surgical History Vaginal hysterectomy/ BSO/ cyst ocele repair 2012 Hospitalization History SEE SURGICAL HX [facility] Other Reason for referral (narrative)No reason for referral information available[facility] Work Phone: Summary Purpose Family History Relationship Condition Age [...] Date Palpitations January 31, 2025 3:1 8pm Chief Complaint Admit Date wellness July 15, 2025 9:15am Reason for Visit Admit Date Acquired hypothyroidism July 15, 2025 9:15am Anxiety July 15, 2025 9:15am Controlled type 2 diabetes mellitus with hyperglycemia July 15, 2025 9:15am Essential (primary) hypertension Septemb er 2024 9:15am Medicare annual wellness visit, subseque nt July 15, 2025 9:15am Additional Source Comments INFORMATION SOURCE (unrecogn ized section and content) DATE CREATED AUTHOR 03/28/2021 [facility] DATE CREATED AUTHOR AUTHOR'S ORGANIZ ATION 01/05/2022 [facility] DATE CREATED AUTHOR AUTHOR'S ORGANIZ ATION 02/19/2023 [facility] DATE CREATED AUTHOR AUTHOR'S ORGANIZ ATION 10/15/2024 [facility] DATE CREATED AUTHOR AUTHOR'S ORGANIZ ATION 01/29/2025 [facility] REASON FOR VISIT (unrecogniz ed section and content) WellnessNew scriptFLU Shot Care Teams (unrecognized sec tion and content) Team Status: Active Member Role Status Dates Jess Flood MD Primary Care Provider Active Team Status: Inactive Member Role Status Dates Jess Flood MD Primary Care Provide r, Attending Provider Active Start: January 31, 2025 End: January 31, 2025 Team Status: Active Member Role Status Dates Jess Flood MD Primary Care Provider Active Start: May 01, 2024 Richard Tafoya MD Attending Provider Active St art: May 01, 2024 Team Status: Inactive Member Role Status Dates Jess Flood MD Primary Care Provide r, Attending Provider Active Start: May 01, 2024 End: May 01, 2024 Team Status: Inactive Member Role Status Dates Jess Flood MD Primary Care Provide r, Attending [...] 2024 Team Status: Inactive Member Role Status Dates Jess Flood MD Primary Care Provider Active Start: June 27, 2024 End: June 27, 2024 Aparna Otto MD Attending Provider Active Sta rt: June 27, 2024 End: June 27, 2024 Jumana Mendieta DO Referring Provider Active Sta rt: June 27, 2024 End: June 27, 2024 Team Status: Inactive Member Role Status Eric Flood MD Primary Care Provider Active Start: July 15, 2025 End: July 15, 2025 Jess Flood MD Attending Provider Active St art: July 15, 2025 End: July 15, 2025 Goals (unrecognized section and content) Goals [...] BE BASED ON THE PRIMARY CLINICAL RECORDS. [facility]. provides no warranty or guarantee of the accuracy or completeness of information in this document.
[2025-07-15 10:45] LABS: Hematocrit 41.7 % (36.0-48.0); Hemoglobin 13.8 g/dL (12.0-16.0); Immature Granulocytes Abs Auto 0.00 10^3/uL (0.00-0.03); Immature Granulocytes Pct Auto 0.0 % (0.0-0.5); Lymphocytes Absolute Auto 1.4 10^3/uL (1.2-3.8); Mean Corpuscular HGB Conc 33.1 g/dL (29.9-35.2); Mean Corpuscular Hemoglobin 31.7 pg (26.7-34.0); Mean Corpuscular Volume 95.9 fL (81.0-99.0); Platelet Count 235 10^3/uL (150-450); Red Blood Count 4.35 10^6/uL (4.20-5.40); White Blood Count 5.3 10^3/uL (4.0-11.0)
[2025-07-15 11:08] LABS: Microalbum Creatinine Ratio Ur 31.5 mg/g (0.0-29.9)
[2025-07-15 11:17] LABS: Alanine Aminotransferase 23 U/L (14-59); Albumin Globulin Ratio 1.1; Albumin Level 4.3 g/dL (3.4-5.0); Alkaline Phosphatase 56 U/L (46-116); Anion Gap 14.2; Aspartate Amino Transferase 20 U/L (15-37); Blood Urea Nitrogen 18.0 mg/dL (7.0-18.0); Calcium 8.9 mg/dL (8.5-10.1); Carbon Dioxide 29.1 mmol/L (21.0-32.0); Chloride 100 mmol/L (98-107); Estimated GFR (African America >60 (>=60 mL/min/1.73m^2); Estimated GFR (Non-African Ame 50 (>=60 mL/min/1.73m^2); Globulin 3.8 g/dL; Glucose 156 mg/dL (74-106); Potassium 4.3 mmol/L (3.5-5.1); Sodium 139 mmol/L (136-145); TSH W/ REFLEX FT4 1.854 uIU/mL (0.358-3.740); Total Protein 8.1 g/dL (6.4-8.2)
[2025-07-16 04:12] LABS: FSH 52.7 mIU/mL (25.8-134.8)
== END 2025-07-15 10:19 | disposition home or self-care (01) ==
LOC: LAB 10:21
PROVIDERS: PCP Family Medicine; Visit Provider Family Medicine
DX: E03.9 Hypothyroidism, unspecified (principal); E11.65 Type 2 diabetes mellitus with hyperglycemia; I10 Essential (primary) hypertension
CPT/HCPCS: 36415; 80053; 82043; 82570; 83001; 83036; 84443; 85025

== ENCOUNTER 2025-10-10 13:34 | Emergency (ER) | payer MEDICARE, OTHER, SELFPAY ==
[2025-10-10 13:53] VITALS: BP 142/86; PULSE 74; TEMP 36.8; O2SAT 99; BMI 27.9
--- NOTE | 2025-10-10 13:55 | CT_ITS ---
The [address] [address] Patient Name: JORDANA JIMÉNEZ MRN: [facility]:[id number] date: 1950 Sex: F Assigned Patient Location: ED.MAIN Current Patient Location: Accession/Order Number: [id number] Exam Date: 10/10/2025 14:00 Report Date: 10/10/2025 14:34 At the request of: ADAM MILLIGAN MD Procedure: CT cervical spine wo con CT BRAIN/FACIAL BONES WITHOUT CONTRAST: CLINICAL HISTORY: Fall one hour ago. Hit face and nose. COMPARISON: None TECHNIQUE: Contiguous axial unenhanced images were obtained through the brain and facial bones. This CT exam was performed using one or more following dose reduction techniques: Automated exposure control, adjustment of the mA and/or kV according to patient size, or use of iterative reconstruction technique. FINDINGS: Brain: There is no evidence of midline shift, intra or extra-axial fluid collection, hemorrhage or CT evidence of stroke. Cortical atrophy with chronic microvascular ischemic changes. Posterior fossa appears unremarkable. The surrounding soft tissues are normal. Facial Bones Nondisplaced nasal bone fracture. The metatarsals and pterygoid plates appear intact. Mandible maxilla appear intact. Orbital fracture. Intraorbital contents appear unremarkable. No significant soft tissue swelling. CT/CT cervical spine wo con IMPRESSION: NO ACUTE FACIAL BONE INJURY. NO ACUTE INTRACRANIAL ABNORMALITY. CT CERVICAL SPINE WITHOUT CONTRAST WITH 3D RECONSTRUCTIONS: COMPARISON: None TECHNIQUE: Spiral axial unenhanced images were obtained through the cervical spine. Sagittal, coronal and 3D volume-rendered reconstructions were also reviewed. This CT exam was performed using one or more following dose reduction techniques: Automated exposure control, adjustment of the mA and/or kV according to patient size, or use of iterative reconstruction technique. FINDINGS: Diffuse moderate spondylosis with relative sparing of C2-3. Diffuse facet joint degenerative changes. No fracture. No prevertebral soft tissues. Visualized lung apices are clear. IMPRESSION: NO CERVICAL SPINE FRACTURE Impression dictated by: Becky Lomas Jr.OWilver 10/10/2025 2:34 PM Dictation Location: [place] [address] Electronically authenticated by: [id number] Y Date: 10/10/2025 14:34
--- NOTE | 2025-10-10 13:55 | CT_ITS ---
The [address] [address] Patient Name: JORDANA JIMÉNEZ MRN: [facility]:[id number] date: 1950 Sex: F Assigned Patient Location: ED.MAIN Current Patient Location: Accession/Order Number: [id number] Exam Date: 10/10/2025 14:00 Report Date: 10/10/2025 14:34 At the request of: ADAM MILLIGAN MD Procedure: CT cervical spine wo con CT BRAIN/FACIAL BONES WITHOUT CONTRAST: CLINICAL HISTORY: Fall one hour ago. Hit face and nose. COMPARISON: None TECHNIQUE: Contiguous axial unenhanced images were obtained through the brain and facial bones. This CT exam was performed using one or more following dose reduction techniques: Automated exposure control, adjustment of the mA and/or kV according to patient size, or use of iterative reconstruction technique. FINDINGS: Brain: There is no evidence of midline shift, intra or extra-axial fluid collection, hemorrhage or CT evidence of stroke. Cortical atrophy with chronic microvascular ischemic changes. Posterior fossa appears unremarkable. The surrounding soft tissues are normal. Facial Bones Nondisplaced nasal bone fracture. The metatarsals and pterygoid plates appear intact. Mandible maxilla appear intact. Orbital fracture. Intraorbital contents appear unremarkable. No significant soft tissue swelling. CT/CT head/brain wo con IMPRESSION: NO ACUTE FACIAL BONE INJURY. NO ACUTE INTRACRANIAL ABNORMALITY. CT CERVICAL SPINE WITHOUT CONTRAST WITH 3D RECONSTRUCTIONS: COMPARISON: None TECHNIQUE: Spiral axial unenhanced images were obtained through the cervical spine. Sagittal, coronal and 3D volume-rendered reconstructions were also reviewed. This CT exam was performed using one or more following dose reduction techniques: Automated exposure control, adjustment of the mA and/or kV according to patient size, or use of iterative reconstruction technique. FINDINGS: Diffuse moderate spondylosis with relative sparing of C2-3. Diffuse facet joint degenerative changes. No fracture. No prevertebral soft tissues. Visualized lung apices are clear. IMPRESSION: NO CERVICAL SPINE FRACTURE Impression dictated by: Eldon Baez Jr., D.O. 10/10/2025 2:34 PM Dictation Location: [place] [address] Electronically authenticated by: [id number] Y Date: 10/10/2025 14:34
--- NOTE | 2025-10-10 14:01 | XR_ITS ---
The [address] [address] Patient Name: JORDANA JIMÉNEZ MRN: [id number] date: 1950 Sex: F Assigned Patient Location: ER Current Patient Location: ER Accession/Order Number: [id number] Exam Date: 10/10/2025 14:00 Report Date: 10/10/2025 14:28 At the request of: ADAM MILLIGAN MD Procedure: XR wrist RT min 3V RIGHT WRIST - 3 views CLINICAL HISTORY: Fall COMPARISON: None FINDINGS: No focal soft tissue abnormalities or acute bony process. Degenerative changes involving the carpus without bony erosions. XR/XR wrist RT min 3V IMPRESSION: DEGENERATIVE CHANGES WITHOUT ACUTE BONY PROCESS. Impression dictated by: Eldon Baez Jr. DWilverOWilver 10/10/2025 2:28 PM Dictation Location: [place] [address] Electronically authenticated by: [id number] Y Date: 10/10/2025 14:28
--- NOTE | 2025-10-10 14:01 | CT_ITS ---
The [address] [address] Patient Name: JORDANA JIMÉNEZ MRN: [id number] date: 1950 Sex: F Assigned Patient Location: ER Current Patient Location: ER Accession/Order Number: [id number] Exam Date: 10/10/2025 14:00 Report Date: 10/10/2025 14:34 At the request of: ADAM MILLIGAN MD Procedure: CT cervical spine wo con CT BRAIN/FACIAL BONES WITHOUT CONTRAST: CLINICAL HISTORY: Fall one hour ago. Hit face and nose. COMPARISON: None TECHNIQUE: Contiguous axial unenhanced images were obtained through the brain and facial bones. This CT exam was performed using one or more following dose reduction techniques: Automated exposure control, adjustment of the mA and/or kV according to patient size, or use of iterative reconstruction technique. FINDINGS: Brain: There is no evidence of midline shift, intra or extra-axial fluid collection, hemorrhage or CT evidence of stroke. Cortical atrophy with chronic microvascular ischemic changes. Posterior fossa appears unremarkable. The surrounding soft tissues are normal. Facial Bones Nondisplaced nasal bone fracture. The metatarsals and pterygoid plates appear intact. Mandible maxilla appear intact. Orbital fracture. Intraorbital contents appear unremarkable. No significant soft tissue swelling. CT/CT facial bones wo con IMPRESSION: NO ACUTE FACIAL BONE INJURY. NO ACUTE INTRACRANIAL ABNORMALITY. CT CERVICAL SPINE WITHOUT CONTRAST WITH 3D RECONSTRUCTIONS: COMPARISON: None TECHNIQUE: Spiral axial unenhanced images were obtained through the cervical spine. Sagittal, coronal and 3D volume-rendered reconstructions were also reviewed. This CT exam was performed using one or more following dose reduction techniques: Automated exposure control, adjustment of the mA and/or kV according to patient size, or use of iterative reconstruction technique. FINDINGS: Diffuse moderate spondylosis with relative sparing of C2-3. Diffuse facet joint degenerative changes. No fracture. No prevertebral soft tissues. Visualized lung apices are clear. IMPRESSION: NO CERVICAL SPINE FRACTURE Impression dictated by: Becky Lomas Jr.OWilver 10/10/2025 2:34 PM Dictation Location: [place] [address] Electronically authenticated by: [id number] Y Date: 10/10/2025 14:34
--- NOTE | 2025-10-10 14:04 | ED.FALL1 ---
HPI HPI - Fall General Chief Complaint: Fall Stated Complaint: FALL HEAD INJURY Time Seen by Provider: 10/10/25 13:55 Source: patient Mode of arrival: walk-in History of Present Illness HPI Narrative: Patient 75 yr old female is coming to us by private car after she drove herself over to the ER, she was trying to get the trash out when she fell face down outside on the concrete, patient did not pass out but she did hit her nose first and she feels that is numbness in that area when she hit it There is no loss of consciousness no other injuries, although the patient mentioned that she is feels some pain in her right wrist and mildly in her both knees that is mostly due to a bruise She did walk into the ER with no difficulty Related Data Home Medications ?Medication ?Instructions ?Recorded ?Confirmed levothyroxine 75 mcg tablet 75 mcg PO .once daily 05/01/24 05/01/24 losartan 50 mg tablet 50 mg PO .once daily 05/01/24 05/01/24 Previous Rx's ?Medication ?Instructions ?Recorded bacitracin 500 unit/gram topical 1 applic topical BID #14 grams 10/10/25 ointment Allergies Allergy/AdvReac Type Severity Reaction Status Date / Time Penicillins Allergy Intermediate Hives Verified 05/01/24 00:59 Sulfa (Sulfonamide Allergy Intermediate hives Verified 05/01/24 00:59 Antibiotics) Review of Systems ROS Status of ROS 10 or more systems reviewed and unremarkable except as noted in history and below PFSH PFSH Social History Little interest or pleasure in doing things: not at all Feeling down, depressed, or hopeless: not at all Exam Narrative Exam Narrative: Nurses notes and vital signs reviewed and patient is not hypoxic. General: Well-appearing and in no apparent distress. Skin: Warm, dry, no pallor noted. No rash. Head: Normocephalic, atraumatic. Neck: Supple, non-tender. Eye: Pupils are equal, round and EOMI. No scleral icterus. Ears, Nose, Mouth, and Throat: There is a small bruise and abrasion that is 3 to 4 mm that is superficial and to the nasal bridge, no deviation of the septum and there is no active bleeding from the naris Cardiovascular: Regular Rate and Rhythm without murmur, gallop or rub. Respiratory: No accessory muscle use or respiratory distress. Lungs are clear to auscultation, no wheezing, rales or rhonchi Chest Wall: no tenderness Back: No midline thoracic or lumbar vertebral tenderness. No CVA tenderness Musculoskeletal: normal ROM, no calf or popliteal tenderness, no lower extremity edema/swelling. There is no tenderness upon palpation of the right wrist at the scaphoid fossa but the patient is complaining of pain in the area, patient have a very mild bruise to the anterior patella bilaterally with no tenderness on palpation GI: Abdomen is soft, non-distended. Normal bowel sounds. No masses appreciated. No tenderness to palpation. No rebound, guarding, or rigidity noted. Neurological: A&O x4. No cranial nerve dysfunction observed. No truncal ataxia. Moves all extremities. Sensation intact. Psychiatric: Cooperative and interactive. Normal mood and affect. Constitutional Vital Signs, click to edit/add: Last Vital Signs Temp 98.2 F 10/10/25 13:53 Pulse 74 10/10/25 13:53 Resp 18 10/10/25 13:53 BP 142/86 H 10/10/25 13:53 Pulse Ox 99 10/10/25 13:53 O2 Del Method Room Air 10/10/25 13:53 Course Vital Signs Vital signs: Vital Signs Temperature 98.2 F 10/10/25 13:53 Pulse Rate 74 10/10/25 13:53 Respiratory Rate 18 10/10/25 13:53 Blood Pressure 142/86 H 10/10/25 13:53 Pulse Oximetry 99 10/10/25 13:53 Oxygen Delivery Method Room Air 10/10/25 13:53 Temperature 98.2 F 10/10/25 13:53 Pulse Rate 74 10/10/25 13:53 Respiratory Rate 18 10/10/25 13:53 Blood Pressure 142/86 H 10/10/25 13:53 Pulse Oximetry 99 10/10/25 13:53 Oxygen Delivery Method Room Air 10/10/25 13:53 MDM - Fall MDM Narrative Medical decision making narrative: CT of the head as well as CT cervical spine showed no acute pathology CT of the face also showed no fracture The patient was provided with her tetanus booster X-ray of the wrist was negative Right now just supportive care with hydration and monitoring especially with the patient hitting her face she was instructed about monitoring her symptoms at home she mentioned that her son is not far away from her and he can provide help if needed The patient to stay awake for the next 12 hours and monitor her symptoms case of nausea vomiting or any headache she is to come back to the ER The patient to follow-up with the primary care within 2 to 3 days and to come back to the ER in case of any worsening of the current symptoms or any new symptoms or concerns Discharge Plan Discharge Chief Complaint: Fall Clinical Impression: Blunt trauma of face, Fall, Contusion of nose, Contusion of hand Patient Disposition: Home, Self-Care Time of Disposition Decision: 15:00 Condition: Good Mode of Transportation: Private Vehicle Prescriptions / Home Meds: New bacitracin 500 unit/gram ointment 1 applic topical BID Qty: 14 0RF No Action levothyroxine 75 mcg tablet 75 mcg PO .once daily losartan 50 mg tablet 50 mg PO .once daily Print Language: Amharic Instructions: Head Injury (DC), Fall Prevention (ED) Referrals: Jess Freed MD [Primary Care Provider, Family Practice] - 1 week Discharge Date/Time: 10/10/25 15:11
--- NOTE | 2025-10-10 14:04 | PC.NURSE ---
abrasion to bridge of nose and bilat sides of nose, appears eye glasses have injured pt's nose with fall. small abrasion to left hand and left thumb. non bleeding at this time
[2025-10-10] MEDS: DIPHTH,PERTUSS(ACELL),TET VAC 0.5 ML SYRINGE IM (14:32)
[2025-10-10] MEDS: BACITRACIN 0.9 GM PACKET 1 PACKET TOPICAL (14:44)
--- OUTSIDE RECORDS SUMMARY | 2025-10-10 14:53 | XMS_ITS | Clinical Summary ---
Author Organization [facility] Address [address] [place] [address] Care Team Providers Care Sub Acute Care Nurse Name Role Phone Unavailable Primary Care Provider Unavailabl e Social History Tobacco UseTypesPacks/DayYears UsedDateSmoking Tobacco: Never Assessed CommentsUnknownSex and Gender InformationValueDate RecordedSex Assigned at Not on fileLegal VzoLxixdp77/15/2023 7:33 PM EDTGender IdentityNot on fileSexual OrientationNot on file Last Filed Vital Signs Vital SignReadingTime TakenCommentsBlood Pressure--Pulse--Temperature-- Respiratory Rate--Oxygen Saturation--Inhaled Oxygen Concentration--Ogrezs23.4 kg (186 lb)05/12/2021 12:00 PM YUDQxltcx274.2 cm (5' 7 )05/12/2021 12:00 PM EDTBody Mass Index29.1307 12:00 PM EDT Plan of Treatment [place] [address]
--- OUTSIDE RECORDS SUMMARY | 2025-10-10 14:53 | XMS_ITS | Clinical Summary ---
Author Organization [facility] Address [address] [place] [address] Care Team Providers Care Director Of Development Name Role Phone Jess Freed MD Primary Care Provider [phone] Allergies Active AllergyReactionsCriticalityNoted VistGcrcgmtoReqqfhvrduf06/07/2023 Other reaction(s): Hives Sulfa (Sulfonamide Antibiotics)12/28/2022 Other reaction(s): Hives Medications MedicationSigDispense QuantityRefillsLast FilledStart DateEnd DateStatus losartan (Cozaar) 50 mg tablet Take 75 mg by mouth in the morning.Active metFORMIN (Glucophage) 1,000 mg tablet metformin 1,000 mg tablet TAKE 1 TABLET BY MOUTH EVERY DAYActive levothyroxine (Synthroid, Levoxyl) 75 mcg tablet levothyroxine 75 mcg tablet TAKE 1 TABLET BY MOUTH EVERY DAYActive folic acid/multivit-min/lutein (CENTRUM SILVER ORAL) Centrum Silver 1 tab dailyActive OneTouch Delica Lancets 33 gauge misc USE TO TEST KPWQAVBJ17/19/2022ctive clotrimazole-betamethasone (Lotrisone) cream APPLY TO AFFECTED AREA TWICE DAILY07/12/2022ctive OneTouch Ultra Test strip USE 1 DAILY07/12/2022ctive latanoprost (Xalatan) 0.005 % ophthalmic solution Administer 1 drop into both eyes at bedtime.4Active metoprolol succinate XL (Toprol-XL) 50 mg 24 hr tablet Take 1 tablet by mouth in the morning.5Active metFORMIN (Glucophage) 500 mg tablet Take 500 mg by mouth with breakfast and with evening meal.5Active Active Problems ProblemNoted DateDiagnosed DateEssential fzftytksirau11/21/2019Hypothyroidism 12/14/2018Type 2 diabetes vihepvec05/21/2019Abdominal pain12/13/2018Abnormal findings on diagnostic imaging of zbezoz8612/13/2018 Family History Medical HistoryRelationNameCommentsColon cancerMaternal GrandmotherCervical cancerPaternal GrandmotherRelationNameStatusCommentsMaternal GrandmotherPaternal Grandmother Social History Tobacco UseTypesPacks/DayYears UsedDateSmoking Tobacco: NeverSmokeless Tobacco: Never Tobacco Cessation:Counseling Given: Not Answered Alcohol UseStandard Drinks/WeekCommentsNot Currently0 (1 standard drink = 0.6 oz pure alcohol)Humiliation, Afraid, Rape, and Kick questionnaireAnswerDate RecordedWithin the last year, have you been afraid of your partner or ex-partner?No01/25/2025Emotionally AbusedNot on file01/25/2025Physically Abused Not on file01/25/2025Sexually AbusedNot on file01/25/2025PHQ-2AnswerDate RecordedPatient Health Questionnaire-2 Ygnbp199UT Safety & Environment AnswerDate RecordedFear of Current or Ex-PartnerNot on file12/15/2023Emotionally AbusedNot on file12/15/2023hysically AbusedNot on file12/15/2023Sexually Abused Not on file12/15/2023hysically or Sexually AbusedNot on file12/15/2023 CommentsUnknownSex and Gender InformationValueDate RecordedSex Assigned at Not on fileLegal MjdAlycgd52/30/2022 12:12 AM EDTGender IdentityNot on file Sexual OrientationNot on file Last Filed Vital Signs Vital SignReadingTime TakenCommentsBlood Jevlsscl505/8204 1:26 PM EDT Yzfoz220701/25/2025 1:26 PM GLBQedltusrrka50.3 ??C (97.3 ??F)01/25/2025 1:26 PM EDTRespiratory Rate--Oxygen Xrykcmttyx264%01/25/2025 1:26 PM EDTInhaled Oxygen Concentration--Aqukte89.5 kg (181 lb 12.8 oz)01/25/2025 1:26 PM LFLTnhyym855.2 cm (5' 7 )01/25/2025 1:26 PM EDTBody Mass Index28.47001/25/2025 1:26 PM EDT Plan of Treatment DateTypeDepartmentCare Team (Latest Contact Info)Zjiuwnzvpno33/03/2026 1:15 PM EDTFollow-Up Ursula Ló[facility]In[facility] [address] [place] [id number] Andreas Brice MD [address] [place], [place] [id number] Health MaintenanceDue DateLast DoneCommentsDiabetes: Hemoglobin A1C1950 Medicare Annual Wellness (AWV)1950Diabetes: Retinopathy Screening 1959Diabetes: Urine Protein Pxzhliqjc68/20/1968Adult Isddhhv4902/10/1971 Zoster Vaccines (1 of 2)1999Pneumococcal Vaccine: 50+ Years (3 of 3 - PCV20 or PCV21)/, 08/24/2013COVID-19 Vaccine (4 - season), 09/14/2021, 12/26/2020Influenza Vaccine (#1) , 08/23/2022, 08/15/2018, Additional history exists Depression Oxkoqsxzt42Fall Risk Fogfiledu98/01/2025 Colorectal Cancer GkqudiakbCmuifylfaqraBSFXqclrpbwcrwi13/26/2022Mammogram Ctqlsolzasoc44/17/2025, 01/02/2024, 12/29/2022, Additional history existsCT ColonographyDiscontinuedColonoscopyDiscontinuedFIT-DNADiscontinuedFOBT DiscontinuedHIB VaccinesAged OutNo longer eligible based on patient's age to complete this topicHPV VaccinesAged OutNo longer eligible based on patient's age to complete this topicIPV VaccinesAged OutNo longer eligible based on patient's age to complete this topicMeningococcal B VaccineAged OutNo longer eligible based on patient's age to complete this topicMeningococcal VaccineAged OutNo longer eligible based on patient's age to complete this topicRotavirus Vaccines Aged OutNo longer eligible based on patient's age to complete this topic SigmoidoscopyDiscontinued Procedures Procedure NamePriorityDate/TimeAssociated DiagnosisCommentsBI MAMMOGRAM SCREENING TOMOSYNTHESIS FRICNARZGCcsajhf47/17/2025 8:31 AM EDT Screening mammogram for breast cancer from Last 3 Months or Most Recently Relevant to Health Maintenance Results * Bilateral screening mammogram with tomosynthesis (01/07/2025 8:31 AM EDT) Anatomical RegionLateralityModalityBreastBilateralMammographySpecimen (Source) Anatomical Location / LateralityCollection Method / VolumeCollection Time Received Time01/08/2025 8:11 AM EDT Impressions 01/08/2025 8:32 AM [...] 01/08/2025 8:32 AM EDT ANN FORBES 1950 [id number] EXAM: BI MAMMOGRAM SCREENING TOMOSYNTHESIS BILATERAL, ?? 01/07/2025 8:21 AM CLINICAL INDICATIONS: Screening, COMPARISON: [...] Jang MD - 01/08/2025 ANN FORBES 1950 [id number] EXAM: BI MAMMOGRAM SCREENING TOMOSYNTHESIS BILATERAL, 01/07/2025 [...] family medical history was used tocalculate their [facility] lifetime risk of malignancy. Scores less than 20% arenot considered high risk per ACR guidelines and patient should continue withthe above recommendation. Electronically signed: Yoel Jang MD. Authorizing ProviderResult TypeResult StatusAndreas Brice MDIMG BI PROCEDURESFinal Result from Last 3 Months or Most Recently Relevant to Health [place] [address] Care Teams Team MemberRelationshipSpecialtyStart DateEnd Date Jess Freed MD [address] [facility] - General12/28/22
== END 2025-10-10 15:11 | disposition home or self-care (01) ==
PROVIDERS: Emergency Provider Emergency Medicine; PCP Family Medicine
DX: S00.33XA Contusion of nose, initial encounter (principal); S60.221A Contusion of right hand, initial encounter; W18.39XA Other fall on same level, initial encounter; S09.93XA Unspecified injury of face, initial encounter; S00.31XA Abrasion of nose, initial encounter
CPT/HCPCS: 70450; 70486; 72125; 73110; 76376; 90471; 90715; 99284